=== PATIENT | female | born 1975 | race Caucasian/White ===

== ENCOUNTER 2023-01-15 08:00 | Outpatient (RCR) | payer OTHER, BC, SELFPAY | END 2023-02-01 10:00 | disposition home or self-care (01) | LOC: PT 08:00 | PROVIDERS: PCP Family Medicine; Visit Provider Family Medicine | DX: R42 Dizziness and giddiness (principal) | CPT/HCPCS: 97012; 97140 ==

== ENCOUNTER 2023-05-15 19:41 | Outpatient (REF) | payer OTHER, BC, SELFPAY ==
[2023-05-22 17:07] LABS: Age Gdln ACOG Testing Note (.); HPV Aptima Negative (Negative); IGP, Aptima HPV, rfx 16/18,45 Note (.)
== END 2023-05-15 19:42 | disposition home or self-care (01) ==
LOC: LAB 19:41
PROVIDERS: PCP Family Medicine; Visit Provider Physician Assistant
DX: Z12.4 Encounter for screening for malignant neoplasm of cervix (principal)
CPT/HCPCS: 87624; G0145

== ENCOUNTER 2023-06-18 09:37 | Outpatient (OUT) | payer OTHER, BC, SELFPAY ==
--- NOTE | 2023-06-18 09:40 | US_ITS ---
The [address] [address] Patient Name: LYNDON WALL MRN: [id number] date: 1975 Sex: F Assigned Patient Location: [place] Current Patient Location: Accession/Order Number: [id number] Exam Date: 06/18/2023 09:50 Report Date: 06/18/2023 10:48 At the request of: RICHARD SHEN Procedure: US renal bladder EXAM: US renal bladder HISTORY: Urinary Tract Infection N39.0 COMPARISON: None. TECHNIQUE: Ultrasound of the kidneys. FINDINGS: The right kidney measures 12.4 x 4.6 x 5.7 cm and appears normal. The left kidney measures 12.4 x 5.6 x 6.2 cm and contains a echogenic focus, largest measuring up to 0.3 cm. There is no hydronephrosis, bilaterally. The urinary bladder appears normal. US/US renal bladder IMPRESSION: Left nephrolithiasis without hydronephrosis. Electronically authenticated by: MAYCO CHERRY Date: 06/18/2023 10:48
== END 2023-06-18 09:38 | disposition home or self-care (01) ==
LOC: US 09:37
PROVIDERS: PCP Family Medicine; Visit Provider Family Medicine
DX: N39.0 Urinary tract infection, site not specified (principal); N20.0 Calculus of kidney
CPT/HCPCS: 76770

== ENCOUNTER 2023-08-09 12:14 | Outpatient (OUT) | payer OTHER, BC, SELFPAY ==
--- OUTSIDE RECORDS SUMMARY | 2023-08-09 12:19 | XMS_ITS | CCD ---
Author Name Unknown Address [address] [place] [address] Organization [facility] Care Team Providers Care Animal Health Technician Name Role Phone PHYSICIAN, DEFAULT Unavailable Unavailable PHYSICIAN, DEFAULT Unavailable Unavailable MAXIMILIAN GALAN Unavailable Unavailable HOY, RICHARD Unavailable Unavailable HOY RICHARD Unavailable Unavailable MO Unavailable Unavailable BURKET, MAYCO Unavailable Unavailable KARIM, DANG Unavailable Unavailable HOY ., DR RAMOS Admitting Unavailable HOY ., DR RAMOS Attending Unavailable [facility] Primary Care Unavailable HOY ., DR RAMOS Consulting Unavailable [facility] Primary Care Unavailable KARASIK ., DR FRANCIS Admitting Unavailabl e KARASIK ., DR FRANCIS Attending Unavailabl e KARASIK ., DR FRANCIS Consulting Unavailabl e HOY ., DR RAMOS Primary Care Unavailable HOY ., DR RAMOS Admitting Unavailable HOY ., DR RAMOS Attending Unavailable HOY ., DR RAMOS Admitting Unavailable [facility] Primary Care Unavailable HOY ., DR RAMOS Attending Unavailable HOY ., DR RAMOS Consulting Unavailable HOY ., DR RAMOS Admitting Unavailable [facility] Primary Care Unavailable HOY ., DR RAMOS Attending Unavailable NILL, Paramjit R Attending Unavailable HoyRichard Referring Unavailable NILL, Paramjit R Attending Unavailable Allergies Allergy Classification Reported Allergen(s) Allergy Type Date of Onset Reaction(s) Facility (1 source) NKA Drug allergy (disorder) 7 [facility] Repository (1 source) No Known Allergies; Translations: [No Known Allergies] Propensity to adverse reactions (disorder) [facility] Repository (1 source) diazePAM Drug Allergy [facility] Repository (1 source) NSAIDs Drug allergy (disorder) [facility] Repository (1 source) No Known Medication Allergies; Translations: [No Known Medication Allergies] Propensity to adverse reactions (disorder) [facility] Repository Problems Active Problems Problem Classification Problem Date Documented Da te Episodic/Chronic Conditions associated with dizziness or vertigo (4 sources) Dizziness and giddiness; Translations: [DIZZINESS AND GIDDINESS] Onset: 01-09-2023 Episodic Coronary atherosclerosis and other heart disease (2 sources) Unstable angina; Translations: [UNSTABLE ANGINA] Onset: 05-17-2017 Chronic Diabetes mellitus without complication (1 source) Type 2 diabetes mellitus without complications; Translations: [TYPE 2 DIABETES MELLITUS WITHOUT COMPLICATIONS] Onset: 05-17-2017 Chronic Essential hypertension (1 source) Essential (primary) hypertension; Translations: [ESSENTIAL (PRIMARY) HYPERTENSION] Onset: 05-17-2017 Chronic Menopausal disorders (1 source) Menopausal and female climacteric states; Translations: [MENOPAUSAL FE CLIMACTERIC STATES] Onset: 04-03-2022 Chronic Other endocrine disorders (1 source) Polycystic ovarian syndrome; Translations: [POLYCYSTIC OVARIAN SYNDROME] Onset: 05-17-2017 Chronic Unclassified (1 source) Obstructive sleep apnea (adult) (pediatric); Translations: [OBSTRUCTIVE SLEEP APNEA (ADULT) (PEDIATRIC)] Onset: 05-17-2017 Chronic Unclassified (1 source) correction (current) use of oral hypoglycemic drugs; Translations: [FDC (CURRENT) USE OF ORAL HYPOGLYCEMIC DRUGS] Onset: 05-17-2017 Unclassified (2 sources) Unknown / UNK(Unknown) Onset: 05-17-2017 Past or Other Problems Problem Classification Problem Date Documented Date Episodic/Chronic Immunizations and screening for infectious disease (1 source) Encounter for screening for human papillomavirus (HPV); Translations: [ENC SCREENING HUMAN PAPILLOMAVIRUS] Onset: 05-24-2022 Episodic Nonspecific chest pain (1 source) Other chest pain; Translations: [OTHER CHEST PAIN] Onset: 05-17-2017 Episodic Unclassified (5 sources) Abnormal result of other cardiovascular function study; Translations: [Encounter for screening for malignant neoplasm of cervix] Onset: 05-17-2017 Episodic Results Test Name Value Interpretation Reference Range Facility Consultation Noteon 12-26-19 Consultation Note [id number]:127 Normal [facility] Physician Referralon 023 Physician Referral [id number]:127 Normal [facility] PAP ACOG PANEL 2: 30 to 65on 05-30-2022 . . Normal [facility] Comment on above: Result Comment: Performed at: WB Performed By: #### [id number] #### [facility] [address] [address] [address] Williams Rdz Age Gdln ACOG Testing 30-65 Normal [facility] Comment on above: Performed By: #### [id number] #### [facility] [address] [address] [address] Williams Rdz DIAGNOSIS: Comment Normal [facility] Comment on above: Result Comment: NEGATIVE FOR INTRAEPITHE LIAL LESION OR MALIGNANCY. Performed at: WB Performed By: #### [id number] #### [facility] [address] [address] [address] Williams Rdz HPV Aptima Negative Normal Negative [facility] Comment on above: Result Comment: This nucleic acid amplif ication test detects fourteen high-risk HPV types (16,18,31,33,35,39,45,51,52,56,58,59,66,68) without differentiation. Performed at: =G Performed By: #### [id number] #### [facility] [address] [address] [address] Williams Rdz Methodology: Comment Normal [facility] Comment on above: Result Comment: This liquid based ThinPr ep(R) pap test was screened with the use of an image guided system. Performed at: WB Performed By: #### [id number] #### [facility] [address] [address] [address] Williams Rdz Note: Comment Normal [facility] Comment on above: Result Comment: The Pap smear is a scree kyle test designed to aid in the detection of premalignant and malignant conditions of the uterine cervix. It is not a diagnostic procedure and should not be used as the sole means of detecting cervical cancer. Both false-positive and false-negative reports do occur. . Performed at: WB Performed By: #### [id number] #### [facility] [address] [place] [address] Dr. Williams Rdz Performed by: Comment Normal [facility] Comment on above: Result Comment: Heather Michael Cytotechn ologist (ASCP) Performed at: WB Performed By: #### [id number] #### [facility] [address] [place] [address] Dr. Williams Rdz Specimen adequacy: Comment Normal [facility] Comment on above: Result Comment: Satisfactory for evaluat ion. Endocervical and/or squamous metaplastic cells (endocervical component) are present. Performed at: WB Performed By: #### [id number] #### [facility] [address] [place] [address] Dr. Williams Rdz ESTROGENon 04-06-2022 Estrogens, Total 109 pg/mL Normal [facility] Comment on above: Result Comment: Prepubertal < 40 Female Cycle: 1-10 Days 16 - 328 11-20 Days 34 - 501 21-30 Days 48 - 350 Post-Menopausal 40 - 244 Performed By: #### E STROG #### [facility] [address] [place] [address] Dr. Williams Rdz VITAMIN B1 (THIAMINE)on 03-13 Vit. B1, Whole Blood 143.1 nmol/L Normal 66.5-200.0 [facility] Comment on above: Performed By: #### VITB1T #### [facility] [address] [place] [address] Dr. Williams Rdz FSHon 04-03-2022 FSH 36.0 mIU/mL Normal [facility] Comment on above: Result Comment: Adult Female: Follicular phase 3.5 - 12.5 Ovulation phase 4.7 - 21.5 Luteal phase 1.7 - 7.7 Postmenopausal 25.8 - 134.8 Performed By: #### V ITB1T #### [facility] [address] [place] [address] Dr. Williams Rdz INSULINon 04-02-2022 Insulin 9.9 uIU/mL Normal 2.6-24.9 [facility] Comment on above: Performed By: #### VITB1T #### [facility] [address] [place] [address] Dr. Williams Rdz OCC BLD IMMUNO SCREENon 03-13 OCCULT BLOOD Negative Normal NEGATIVE [facility] Comment on above: Performed By: #### OBSCRN #### [facility] [address] [place] [address] Dr. Williams Rdz PROGESTERONEon 04-01-2022 Progesterone 0.1 ng/mL Normal [facility] Comment on above: Result Comment: Follicular phase 0.1 - 0 .9 Luteal phase 1.8 - 23.9 Ovulation phase 0.1 - 12.0 First trimester 11.0 - 44.3 Second trimester 25.4 - 83.3 Third trimester 58.7 - 214.0 Postmenopausal 0.0 - 0.1 Performed By: #### V ITB1T #### [facility] [address] [place] [address] Dr. Williams Rdz PROLACTINon 04-01-2022 Prolactin 9.4 ng/mL Normal 4.8-23.3 [facility] Comment on above: Performed By: #### PROLAC #### [facility] [address] [place] [address] Dr. Williams Rdz T4, T3U, FTI LABCORPon 04-01 Free Thyroxine Index 2.3 Normal 1.2-4.9 [facility] Comment on above: Performed By: #### VITB1T #### [facility] [address] [place] [address] Dr. Williams Rdz T3 Uptake 26 % Normal 24-39 [facility] Comment on above: Performed By: #### VITB1T #### [facility] [address] [place] [address] Dr. Williams Rdz T4 [Mass/Vol] 8.8 ug/dL Normal 4.5-12.0 [facility] Comment on above: Performed By: #### VITB1T #### [facility] [address] [place] [address] Dr. Williams Rdz TESTOSTERONE, TOTALon 2021 Testosterone [Mass/Vol] 17 ng/dL Normal 4-50 [facility] Comment on above: Performed By: #### TESTTOT #### [facility] [address] [place] [address] Dr. Williams Rdz VIT D 25-OH LABCORPon 2021 Vitamin D, 25-Hydroxy 29.6 ng/mL Critically low 30.0-100.0 [facility] Comment on above: Result Comment: Vitamin D deficiency has been defined by the [place] of [employer] and an Endocrine Society practice guideline as a level of serum 25-OH vitamin D less than 20 ng/mL (1,2). The Endocrine Society went on to further define vitamin D insufficiency as a level between 21 and 29 ng/mL (2). 1. IOM ([place] of [employer]). 2010. Dietary reference intakes for calcium and D. [place]: The National Academies Press. 2. Guido MF, Lashaun [place], Anali GARDINER, et al. Evaluation, treatment, and prevention of vitamin D deficiency: an Endocrine Society clinical practice guideline. JCEM. 2010; 96(7):1911-30. Performed By: #### V ITB1T #### [facility] [address] [place] [address] Dr. Williams Rdz CBC AUTO DIFFon 03-31-2022 BASO # 0.0 103/ul Normal 0.0-0.1 [facility] Comment on above: Performed By: #### VITB1T #### [facility] [address] [place] [address] Dr. Williams Rdz Basophils/100 WBC (Bld) 0.3 % Normal 0.2-2.0 [facility] Comment on above: Performed By: #### VITB1T #### [facility] [address] [place] [address] Dr. Williams Rdz EO # 0.1 103/ul Normal 0.0-0.7 [facility] Comment on above: Performed By: #### VITB1T #### [facility] [address] [place] [address] Dr. Williams Rdz Eosinophils/100 WBC (Bld) 0.6 % Critically low 0.9-7.0 [facility] Comment on above: Performed By: #### VITB1T #### [facility] [address] [place] [address] Dr. Williams Rdz Erythrocyte distribution width (RBC) [Ratio] 14.4 % Normal 11.0-15.0 [facility] Comment on above: Performed By: #### VITB1T #### [facility] [address] [place] [address] Dr. Williams Rdz Hematocrit (Bld) [Volume fraction] 36.2 % Normal 36.0-48.0 [facility] Comment on above: Performed By: #### VITB1T #### [facility] [address] [place] [address] Dr. Williams Rdz Hemoglobin (Bld) [Mass/Vol] 11.1 g/dL Critically low 12.0-16.0 [facility] Comment on above: Performed By: #### VITB1T #### [facility] [address] [place] [address] Dr. Williams Rdz IG # 0.03 10e3/ul Normal 0.00-0.03 [facility] Comment on above: Performed By: #### VITB1T #### [facility] [address] [place] [address] Dr. Williams Rdz IG % 0.3 % Normal 0.0-0.5 [facility] Comment on above: Performed By: #### VITB1T #### [facility] [address] [place] [address] Dr. Williams Rdz LYMPH # 2.5 103/ul Normal 1.2-3.8 [facility] Comment on above: Performed By: #### VITB1T #### [facility] [address] [place] [address] Dr. Williams Rdz Lymphocytes/100 WBC (Bld) 26.4 % Normal 20.5-60.0 [facility] Comment on above: Performed By: #### VITB1T #### [facility] [address] [place] [address] Dr. Williams Rdz MANUAL DIFF REQ NO Normal [facility] Comment on above: Performed By: #### VITB1T #### [facility] [address] [place] [address] Dr. Williams Rdz MCH (RBC) [Entitic mass] 23.8 pg Critically low 26.7-34.0 [facility] Comment on above: Performed By: #### VITB1T #### [facility] [address] [place] [address] Dr. Williams Rdz MCHC (RBC) [Mass/Vol] 30.7 g/dL Normal 29.9-35.2 [facility] Comment on above: Performed By: #### VITB1T #### [facility] [address] [place] [address] Dr. Williams Rdz MCV (RBC) [Entitic vol] 77.7 fL Critically low 81.0-99.0 [facility] Comment on above: Performed By: #### VITB1T #### [facility] [address] [place] [address] Dr. Williams Rdz MONO # 0.6 103/ul Normal 0.3-0.8 [facility] Comment on above: Performed By: #### VITB1T #### [facility] [address] [place] [address] Dr. Williams Rdz Monocytes/100 WBC (Bld) 6.7 % Normal 1.7-12.0 [facility] Comment on above: Performed By: #### VITB1T #### [facility] [address] [place] [address] Dr. Williams Rdz NEUT # 6.2 103/ul Normal 1.4-6.5 [facility] Comment on above: Performed By: #### VITB1T #### [facility] [address] [place] [address] Dr. Williams Rdz Neutrophils/100 WBC (Bld) 65.7 % Normal 43.0-75.0 [facility] Comment on above: Performed By: #### VITB1T #### [facility] [address] [place] [address] Dr. Williams Rdz Platelet mean volume (Bld) [Entitic vol] 8.6 fL Critically low 9.5-13.5 [facility] Comment on above: Performed By: #### VITB1T #### [facility] [address] [place] [address] Dr. Williams Rdz PLT 407 103/ul Normal 150-450 [facility] Comment on above: Performed By: #### VITB1T #### [facility] [address] [place] [address] Dr. Williams Rdz RBC 4.66 106/ul Normal 4.20-5.40 [facility] Comment on above: Performed By: #### VITB1T #### [facility] [address] [place] [address] Dr. Williams Rdz WBC 9.4 103/ul Normal 4.0-11.0 [facility] Comment on above: Performed By: #### VITB1T #### [facility] [address] [place] [address] Dr. Williams Rdz GLYCOHEMOGLOBIN A1Con 2021 ADA RECOMMENDATION SEE BELOW Normal [facility] Comment on above: Result Comment: ADA RECOMMENDED LIMIT 4. 0 - 6.0 ADA THERAPEUTIC TARGET < 7.0 ACTION SUGGESTED > 7.0 Performed By: #### A 1C #### [facility] [address] [place] [address] Dr. Williams Rdz Glucose [Mass/Vol] 111 mg/dL Normal [facility] Comment on above: Performed By: #### A1C #### [facility] [address] [place] [address] Dr. Williams Rdz HbA1c (Bld) [Mass fraction] 5.5 % Normal 4.5-6.2 [facility] Comment on above: Performed By: #### A1C #### [facility] [address] [place] [address] Dr. Williams Rdz IRONon 03-31-2022 Iron [Mass/Vol] 43.0 ug/dL Critically low 50.0-170.0 [facility] Comment on above: Performed By: #### VITB1T #### [facility] [address] [place] [address] Dr. Williams Rdz LIPID PROFILEon 03-31-2022 CHOL-HDL RATIO NORM SEE BELOW Normal [facility] Comment on above: Result Comment: 3.3 - 4.4 LOW RISK 4.4 - 7.1 AVERAGE RISK 7.1 - 11.0 MODERATE RISK >11.0 HIGH RISK Performed By: #### T SH, CMP, LIPID #### [facility] [address] [address] [address] Williams Rdz Cholesterol [Mass/Vol] 142 mg/dL Normal <=200 [facility] Comment on above: Performed By: #### TSH, CMP, LIPID #### [facility] [address] [address] [address] Williams Rdz Cholesterol in HDL [Mass/Vol] 46 mg/dL Normal 40-60 [facility] Comment on above: Performed By: #### TSH, CMP, LIPID #### [facility] [address] [address] [address] Williams Rdz Cholesterol in LDL [Mass/Vol] 78.4 mg/dL Normal [facility] Comment on above: Performed By: #### TSH, CMP, LIPID #### [facility] [address] [address] [address] Williams Rdz Cholesterol.tota l/Cholesterol in HDL [Mass ratio] 3.1 {ratio} Normal [facility] Comment on above: Performed By: #### TSH, CMP, LIPID #### [facility] [address] [address] [address] Williams Rdz HDL NORMAL > or = 60 mg/dl - LO W CARDIOVASCULAR RISK <40 mg/dl - HIGH CARDIOVASCULAR RISK Normal [facility] Comment on above: Performed By: #### TSH, CMP, LIPID #### [facility] [address] [address] [address] Williams Rdz LDL CALC NORMAL SEE BELOW Normal [facility] Comment on above: Result Comment: <100 mg/dl OPTIMAL 100 - 129 mg/dl NEAR OR ABOVE OPTIMAL 130 - 159 mg/dl BORDERLINE HIGH 160 - 189 mg/dl HIGH >190 mg/dl VERY HIGH Performed By: #### T SH, CMP, LIPID #### [facility] [address] [address] [address] Williams Rdz Triglyceride [Mass/Vol] 88 mg/dL Normal <=150 [facility] Comment on above: Performed By: #### TSH, CMP, LIPID #### [facility] [address] [address] [address] Williams Rdz VLDL CALC 17.6 mg/dL Normal [facility] Comment on above: Performed By: #### TSH, CMP, LIPID #### [facility] [address] [address] [address] Williams Rdz PROF 14(COMP METB)on 022 Albumin [Mass/Vol] 3.8 g/dL Normal 3.4-5.0 [facility] Comment on above: Performed By: #### TSH, CMP, LIPID #### [facility] [address] [place] [address] Dr. Williams Rdz Albumin/Globulin [Mass ratio] 0.9 {ratio} Normal [facility] Comment on above: Performed By: #### TSH, CMP, LIPID #### [facility] [address] [address] [address] Williams Rdz ALP [Catalytic activity/Vol] 123 U/L Critically high 46-116 [facility] Comment on above: Performed By: #### TSH, CMP, LIPID #### [facility] [address] [place] [address] Dr. Williams Rdz ALT [Catalytic activity/Vol] 26 U/L Normal 14-59 [facility] Comment on above: Performed By: #### TSH, CMP, LIPID #### [facility] [address] [address] [address] Williams Rdz Anion gap [Moles/Vol] 9.1 mmol/L Normal [facility] Comment on above: Performed By: #### TSH, CMP, LIPID #### [facility] [address] [place] [address] Dr. Williams Rdz AST [Catalytic activity/Vol] 14 U/L Critically low 15-37 [facility] Comment on above: Performed By: #### TSH, CMP, LIPID #### [facility] [address] [address] [address] Williams Rdz Bilirubin [Mass/Vol] 0.5 mg/dL Normal 0.2-1.0 [facility] Comment on above: Performed By: #### TSH, CMP, LIPID #### [facility] [address] [address] [address] Williams Rdz Calcium [Mass/Vol] 8.9 mg/dL Normal 8.5-10.1 [facility] Comment on above: Performed By: #### TSH, CMP, LIPID #### [facility] [address] [address] [address] Williams Rdz Chloride [Moles/Vol] 103 mmol/L Normal 98-107 [facility] Comment on above: Performed By: #### TSH, CMP, LIPID #### [facility] [address] [place] [address] Dr. Williams Rdz CO2 [Moles/Vol] 32.3 mmol/L Critically high 21.0-32.0 [facility] Comment on above: Performed By: #### TSH, CMP, LIPID #### [facility] [address] [address] [address] Williams Rdz Creatinine [Mass/Vol] 0.71 mg/dL Normal 0.55-1.02 [facility] Comment on above: Performed By: #### TSH, CMP, LIPID #### [facility] [address] [place] [address] Dr. Williams Rdz EGFR-AF TRINIDADIAN >60 Normal >=60 [facility] Comment on above: Performed By: #### TSH, CMP, LIPID #### [facility] [address] [place] [address] Dr. Williams Rdz EGFR-NON AF TRINIDADIAN >60 Normal >=60 [facility] Comment on above: Performed By: #### TSH, CMP, LIPID #### [facility] [address] [place] [address] Dr. Williams Rdz Globulin (S) [Mass/Vol] 4.0 g/dL Normal [facility] Comment on above: Performed By: #### TSH, CMP, LIPID #### [facility] [address] [address] [address] Williams Rdz Glucose [Mass/Vol] 105 mg/dL Normal 74-106 [facility] Comment on above: Performed By: #### TSH, CMP, LIPID #### [facility] [address] [address] [address] Williams Rdz Potassium [Moles/Vol] 3.4 mmol/L Critically low 3.5-5.1 [facility] Comment on above: Performed By: #### TSH, CMP, LIPID #### [facility] [address] [address] [address] Williams Rdz Protein [Mass/Vol] 7.8 g/dL Normal 6.4-8.2 [facility] Comment on above: Performed By: #### TSH, CMP, LIPID #### [facility] [address] [place] [address] Dr. Williams Rdz Sodium [Moles/Vol] 141 mmol/L Normal 136-145 [facility] Comment on above: Performed By: #### TSH, CMP, LIPID #### [facility] [address] [address] [address] Williams Rdz Urea nitrogen [Mass/Vol] 19.0 mg/dL Critically high 7.0-18.0 [facility] Comment on above: Performed By: #### TSH, CMP, LIPID #### [facility] [address] [address] [address] Williams Rdz Urea nitrogen/Creatin ine [Mass ratio] 26.8 mg/mg Normal [facility] Comment on above: Performed By: #### TSH, CMP, LIPID #### [facility] [address] [address] [address] Williams Rdz TSHon 03-31-2022 TSH 2.384 uIU/mL Normal 0.358-3.74 0 [facility] [facility] Comment on above: Performed By: #### TSH, CMP, LIPID #### [facility] [address] [address] [address] Williams Rdz VIT B12 AND FOLATEon 022 Cobalamin (Vitamin B12) [Mass/Vol] 856.0 pg/mL Normal 193.0-986. 0 [facility] Comment on above: Performed By: #### VITB1T #### [facility] [address] [place], [place] [address] Dr. Williams Rdz FOLATE 14.50 ng/mL Normal 8.60-58.90 [facility] Comment on above: Performed By: #### VITB1T #### [facility] [address] [place], [place] [address] Dr. Williams Rdz Discharge Summaryon 05-22-20 17 Discharge Summary [id number] Admitted: 05/17/2017 Discharged: 05/21/2017 Date of : 1975 Physician: Dang Borjas DO DISCHARGE SUMMARYPRIMARY DIAGNOSIS: Chest pain (ruled out coronary artery disease).SECONDARY DIAGNOSES:1. Hypertension.2. Obstructive sleep apnea.3. Diabetes mellitus.4. Polycystic ovarian syndrome.CONSULTATIONS: None.PROCEDURE: Coronary angiogram showed normal coronaries.HISTORY OF PRESENT ILLNESS AND HOSPITAL COURSE:The patient as mentioned above is a 41-year-old female, she is known caseof hypertension and diabetes mellitus. Nonsmoker. The patient complainedof recurrent attack of chest pain over 3 weeks' duration. The pain wascentrally located, heavy in nature, radiated to her left shoulder and leftarm. The pain occurs both at rest and on exertion. Outside hospitalinvestigations were done showed ejection fraction of 55% without regionalwall motion abnormalities. Stress test was done outside the hospital andshowed reversible ischemia in the distribution of LAD. The patient wasreferred for further management. Initial EKG and serial EKGs with serialtroponin sets were negative. CTA was done outside and showed no PE.Coronary angiogram was done during her stay in the hospital showed normalcoronaries. Her chest pain is most likely musculoskeletal pain. She wasprescribed nonsteroidal anti-inflammatory drug for her pain. The patientwas discharged home on May 21 with stable condition and no more chestpain.DISCHARGE DISPOSITION: Home.DISCHARGE CONDITION: Stable vital signs. No more chest pain.DISCHARGE MEDICATIONS: Glimepiride 4 mg two times per day, hydralazine 100mg twice a day, irbesartan 300 mg daily, lansoprazole 30 mg capsule daily,metformin 500 mg twice a day, metoprolol 50 mg twice a day, ibuprofen 400mg three times per day as needed for chest pain, and sennosides-docusatesodium 1 tablet oral two times per day as needed for constipation, anddesvenlafaxine succinate ER 50 mg daily.FOLLOWUP INSTRUCTIONS:1. To follow up with her primary care physician within 2 weeks.2. To follow up with Dr. Perez on June 04, 2017, at 09:45 a.m. at [facility].Reviewed By:Margy Davis MD 05/26/2017 01:03 PElectronically Signed by:Dang Borjas DO 05/28/2017 04:44 P ____Dang Borjas DO I personally saw this patient on the day of the encounter, performed thekey portion(s) of the service and participated in the management andconfirm the resident's documentation. Please note there may be anadditional personal documentation from me. Date Dict: 05/21/2017/05:25 P/BRADLEY Carterate Trans: 05/22/2017 02:16 P/mmoDN_[id number]: Richard Alvarado M.D. [address] [facility] [address] Normal [facility] BASIC METABOLIC PANELon 10-1 0 Calcium 8.8 mg/dL Normal 8.6-10.3 [facility] Comment on above: Order Comment: No: Do not add to previou s draw Performed By: #### 3 5200, 63088, 89525, 43313 ####[facility] [place] [address], [facility] Chloride 102 mmol/L Normal 98-107 [facility] Comment on above: Order Comment: No: Do not add to previou s draw Performed By: #### 3 5200, 28050, 97431, 71487 ####[facility] [place] [address], [facility] CO2 26 mmol/L Normal 21-31 [facility] Comment on above: Order Comment: No: Do not add to previou s draw Performed By: #### 3 5200, 71314, 83226, 65838 ####[facility] [place] [address], [facility] Creatinine 0.67 mg/dL Normal 0.60-1.20 [facility] Comment on above: Order Comment: No: Do not add to previou s draw Performed By: #### 3 5200, 18984, 75213, 15840 ####[facility] [place] [address], [facility] eGFR (black) mL/min/{1.73_m2} Normal >60 [facility] Comment on above: Order Comment: No: Do not add to previou s draw Performed By: #### 3 5200, 12493, 91966, 87678 ####[facility] [place] [address], [facility] eGFR (non-black) mL/min/{1.73_m2} Normal >60 Th e [facility] Comment on above: Order Comment: No: Do not add to previou s draw Performed By: #### 3 5200, 28793, 84278, 85935 ####[facility] [place] [address], [place] Glucose mass conc 235 mg/dL High 70-100 [facility] Comment on above: Order Comment: No: Do not add to previou s draw Performed By: #### 3 5200, 91528, 80903, 86576 ####[facility] [place] [address], [place] Potassium molar conc 4.2 mmol/L Normal 3.5-5.1 [facility] Comment on above: Order Comment: No: Do not add to previou s draw Performed By: #### 3 5200, 28101, 68778, 31264 ####[facility] Sodium 137 mmol/L Normal 136-145 [facility] Comment on above: Order Comment: No: Do not add to previou s draw Performed By: #### 3 5200, 00207, 92193, 71178 ####[facility] Urea nitrogen 18 mg/dL Normal 7-25 [facility] Comment on above: Order Comment: No: Do not add to previou s draw Performed By: #### 3 5200, 18807, 24638, 49176 ####[facility] CBC COMPLETE BLOOD COUNTon - Erythrocyte distribution width Auto Ratio (RBC) 14.0 % Normal 11.5-16.9 [facility] Comment on above: Order Comment: No: Do not add to previou s draw Performed By: #### 3 5200, 36839, 24566, 40219 ####[facility] Erythrocytes (RBC) 4.43 mill/mm3 Normal 3.50-5.50 [facility] Comment on above: Order Comment: No: Do not add to previou s draw Performed By: #### 3 5200, 19294, 31893, 95009 ####[facility] Hematocrit (HCT) 38.1 % Normal 36.0-48.0 [facility] Comment on above: Order Comment: No: Do not add to previou s draw Performed By: #### 3 5200, 02101, 83074, 79024 ####[facility] Hemoglobin mass conc (Bld) 12.4 g/dL Normal 12.0-15.0 [facility] Comment on above: Order Comment: No: Do not add to previou s draw Performed By: #### 3 5200, 37176, 33550, 22546 ####[facility] MCH 27.9 pg Normal 24.0-32.0 [facility] Comment on above: Order Comment: No: Do not add to previou s draw Performed By: #### 3 5200, 05305, 53283, 47894 ####[facility] MCHC mass conc (RBC) 32.5 g/dL Normal 32.0-36.0 [facility] Comment on above: Order Comment: No: Do not add to previou s draw Performed By: #### 3 5200, 67019, 80800, 71143 ####[facility] MCV 86.0 fL Normal 80.0-100.0 [facility] Comment on above: Order Comment: No: Do not add to previou s draw Performed By: #### 3 5200, 52129, 36144, 62875 ####[facility] [facility].[address] PLAT CNT 314 Thou/mm3 Normal 100-400 [facility] Comment on above: Order Comment: No: Do not add to previou s draw Performed By: #### 3 5200, 41824, 70230, 25110 ####[facility] [facility].[address] WBC (Leukocytes) 12.3 Thou/mm3 High 4.0-10.0 [facility] Comment on above: Order Comment: No: Do not add to previou s draw Performed By: #### 3 5200, 35117, 05961, 69048 ####[facility] [place] [address], [facility] Cardiovascular Lab Reporton 05-21-2017 Cardiovascular Lab Report [facility] Patient Name: Lyndon Wall [facility] MR #: [id number] Physician: Mayco Faith,Department of M.D.Medicine Service Date: 05/20/2017Division of Birthdate: 1975Cardiology Room #: 3AB [id number] [place], [place] [address]Synjx Fax Cardiovascular Laboratory ReportFINAL IMPRESSION1. Angiographically nonobstructive coronary arteries.2. Normal global left ventricular systolic function by noninvasive imaging.RECOMMENDATIONS:1. Consider alternative etiologies for the patient's chest pain symptoms, namely pulmonary, musculoskeletal, or GI.2. Aggressive cardiovascular risk modification.3. Further recommendation deferred to the Cardiology Service.PROCEDURES: Bilateral selective coronary angiogram by left radialapproach.METHOD: After risks, benefits, and alternatives were explained, a writteninformed consent was obtained. The patient was prepped and draped in ausual sterile fashion over the left wrist. Using a 1% lidocaine solution,local infiltration anesthesia was achieved. Using a modified Seldingertechnique and a micropuncture access to the left radial artery wasobtained. A 6-[place] Seldinger sheath was inserted without difficulty.Bilateral selective coronary angiogram was performed using a JR 4 and JL 4catheter. After reviewing the images, it was elected to conclude theprocedure. All catheters were removed. The radial sheath was removed withapplication of a pressure bandage per protocol achieving optimalhemostasis. Overall, the patient tolerated the procedure well. There wereno overt complications. She was transferred to the holding area in a stablecondition.HEMODYNAMICS: AO was 108/79. Sedation time was 17 minutes. Totalfluoroscopy was .4mGray and time was 2.59 minutes. Left ventricleventriculography was not performed. Ejection fraction was normal bynoninvasive imaging.CORONARY ARTERIES:1. Left main artery. 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 This bifurcates into the left anterior descending, left circumflex coronary artery and is free of significant stenosis.2. Left anterior descending coronary artery. This is angiographically nonobstuctive. It gives rise to 3small to moderate sized diagonal branches that are free of significantdisease.3. Left circumflex coronary artery. This is angiographically nonobstructive. It gives rise to 3 obtuse marginal branches that are small to moderate size that are free of disease.4. Right coronary artery. This is a dominant vessel given rise to the posterior descending and posterolateral branches. The posterior descending and posterolateral branches show no significant stenosis.INDICATION: This patient is a 41-year-old female, who was admitted withunstable angina. She has a past medical history of diabetes, uncontrolledhypertension. Troponins were negative. EKG did not show any changes. Thepatient had a positive stress chest with anterior defect. 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 05/23/2017 02:56 P Mayco Faith M.D. I was present for the entire procedure. Date Dict: 05/20/2017/11:21 A/Taryn Zhou Trans: 05/21/2017 07:35 A/Thaddeus_[id number]: Richard Alvarado M.D. [address] [facility] [address] Normal [facility] HEMOGLOBIN A1Con 05-21-2017 Glucose mass conc 240 mg/dL High 70-126 [facility] Comment on above: Order Comment: No: Do not add to previou s draw Performed By: #### 3 2240, 24161, 44227, 59850 ####[facility] [place] [address], [facility] Hemoglobin A1c/Hemoglobin.t otal mass fraction (Bld) 10.0 % High 4.0-6.0 [facility] Comment on above: Order Comment: No: Do not add to previou s draw Performed By: #### 3 5200, 45606, 16821, 27625 ####[facility] [place] [address], [facility] POC GLUCOSE LABon 05-21-2017 Glucose mass conc 287 mg/dL High 70-100 [facility] Comment on above: Performed By: #### 21504, 65397, 60140, 39888 ####[facility] [place] [address], [facility] Glucose mass conc 231 mg/dL High 70-100 [facility] Comment on above: Performed By: #### 34318, 70027, 56786, 38547 ####[facility] [place] [address], [facility] TROPONIN-Ion 05-21-2017 Troponin I.cardiac mass conc 0.01 ng/mL Normal 0.00-0.04 [facility] Comment on above: Order Comment: No: Do not add to previou s draw Result Comment: REFE RENCE RANGES: 0.00 - 0.04 ng/ml NORMAL 0.05 - 0.50 ng/ml INDETERMINATE > 0.50 ng/ml CONSISTENT WITH AN M.I. Performed By: #### 3 5200, 96469, 69417, 27605 ####[facility] [place] [address], [facility] BASIC METABOLIC PANELon Calcium 9.0 mg/dL Normal 8.6-10.3 [facility] Comment on above: Order Comment: No: Do not add to previou s draw Performed By: #### 3 5200, 67387, 92192, 52583 ####[facility] [place] [address], [facility] Chloride 101 mmol/L Normal 98-107 [facility] Comment on above: Order Comment: No: Do not add to previou s draw Performed By: #### 3 5200, 80549, 65107, 67997 ####[facility] [place] [address], [facility] CO2 26 mmol/L Normal 21-31 [facility] Comment on above: Order Comment: No: Do not add to previou s draw Performed By: #### 3 5200, 37032, 31736, 06483 ####[facility] [place] [address], [facility] Creatinine 0.72 mg/dL Normal 0.60-1.20 [facility] Comment on above: Order Comment: No: Do not add to previou s draw Performed By: #### 3 5200, 84329, 39419, 84035 ####[facility] eGFR (black) mL/min/{1.73_m2} Normal >60 [facility] Comment on above: Order Comment: No: Do not add to previou s draw Performed By: #### 3 5200, 90721, 98261, 25562 ####[facility] [place] [address], [facility] eGFR (non-black) mL/min/{1.73_m2} Normal >60 Th [facility] Comment on above: Order Comment: No: Do not add to previou s draw Performed By: #### 3 5200, 55685, 01130, 13565 ####[facility] [place] [address], [facility] Glucose mass conc 256 mg/dL High 70-100 [facility] Comment on above: Order Comment: No: Do not add to previou s draw Performed By: #### 3 5200, 96076, 90860, 82055 ####[facility] [place] [address], [facility] Potassium molar conc 4.1 mmol/L Normal 3.5-5.1 [facility] Comment on above: Order Comment: No: Do not add to previou s draw Performed By: #### 3 5200, 59048, 15036, 10788 ####[facility] [facility].[address] Sodium 137 mmol/L Normal 136-145 [facility] Comment on above: Order Comment: No: Do not add to previou s draw Performed By: #### 3 5200, 01536, 28502, 26357 ####[facility], [place] [address] [place] [address] Urea nitrogen 18 mg/dL Normal 7-25 [facility] Comment on above: Order Comment: No: Do not add to previou s draw Performed By: #### 3 5200, 07829, 34451, 69001 ####[facility] [facility].[address] CBC COMPLETE BLOOD COUNTon Erythrocyte distribution width Auto Ratio (RBC) 14.2 % Normal 11.5-16.9 [facility] Comment on above: Order Comment: No: Do not add to previou s draw Performed By: #### 3 5200, 49836, 34221, 90111 ####[facility] [facility], [place] [address] [place] [address] Erythrocytes (RBC) 4.63 mill/mm3 Normal 3.50-5.50 [facility] Comment on above: Order Comment: No: Do not add to previou s draw Performed By: #### 3 5200, 53244, 85187, 74827 ####[facility] [place] [address], [facility] Hematocrit (HCT) 39.3 % Normal 36.0-48.0 [facility] Comment on above: Order Comment: No: Do not add to previou s draw Performed By: #### 3 5200, 07312, 95471, 46367 ####[facility] Hemoglobin mass conc (Bld) 12.9 g/dL Normal 12.0-15.0 [facility] Comment on above: Order Comment: No: Do not add to previou s draw Performed By: #### 3 5200, 00070, 09677, 91131 ####[facility] [facility].[address] MCH 28.0 pg Normal 24.0-32.0 [facility] Comment on above: Order Comment: No: Do not add to previou s draw Performed By: #### 3 5200, 30668, 88969, 06676 ####[facility] [facility].[address] MCHC mass conc (RBC) 32.9 g/dL Normal 32.0-36.0 [facility] Comment on above: Order Comment: No: Do not add to previou s draw Performed By: #### 3 5200, 48275, 67332, 98716 ####[facility]3000 [facility].[address] MCV 85.0 fL Normal 80.0-100.0 [facility] Comment on above: Order Comment: No: Do not add to previou s draw Performed By: #### 3 5200, 98621, 73322, 19056 ####[facility] [facility].[address] PLAT CNT 356 Thou/mm3 Normal 100-400 [facility] Comment on above: Order Comment: No: Do not add to previou s draw Performed By: #### 3 5200, 65280, 44041, 22152 ####[facility] [facility].[address] WBC (Leukocytes) 13.8 Thou/mm3 High 4.0-10.0 [facility] Comment on above: Order Comment: No: Do not add to previou s draw Performed By: #### 3 5200, 61408, 34823, 79150 ####[facility] [place] [address], [facility] POC GLUCOSE LABon 05-20-2017 Glucose mass conc 278 mg/dL High 70-100 [facility] Comment on above: Performed By: #### 98992, 92365, 11113, 60448 ####[facility] [place] [address], [facility] Glucose mass conc 412 mg/dL High 70-100 [facility] Comment on above: Performed By: #### 44383, 89110, 14690, 00319 ####[facility] [place] [address], [facility] Glucose mass conc 258 mg/dL High 70-100 [facility] Comment on above: Performed By: #### 23087, 42056, 96800, 79826 ####[facility] [place] [address], [facility] Glucose mass conc 227 mg/dL High 70-100 [facility] Comment on above: Performed By: #### 55128, 25352, 34989, 84476 ####[facility] [place] [address], [facility] TROPONIN-Ion 05-20-2017 Troponin I.cardiac mass conc 0.01 ng/mL Normal 0.00-0.04 [facility] Comment on above: Order Comment: No: Do not add to previou s draw Result Comment: REFE RENCE RANGES: 0.00 - 0.04 ng/ml NORMAL 0.05 - 0.50 ng/ml INDETERMINATE > 0.50 ng/ml CONSISTENT WITH AN M.I. Performed By: #### 3 5200, 13684, 15687, 46174 ####[facility] [place] [address], [facility] BASIC METABOLIC PANELon Calcium 9.0 mg/dL Normal 8.6-10.3 [facility] Comment on above: Order Comment: No: Do not add to previou s draw Performed By: #### 3 5200, 59103, 89020, 79910 ####[facility] [place] [address], [facility] Chloride 104 mmol/L Normal 98-107 [facility] Comment on above: Order Comment: No: Do not add to previou s draw Performed By: #### 3 5200, 27045, 85961, 27081 ####[facility] [place] [address], [facility] CO2 26 mmol/L Normal 21-31 [facility] Comment on above: Order Comment: No: Do not add to previou s draw Performed By: #### 3 5200, 50912, 64234, 79733 ####[facility] [place] [address], [facility] Creatinine 0.76 mg/dL Normal 0.60-1.20 [facility] Comment on above: Order Comment: No: Do not add to previou s draw Performed By: #### 3 5200, 78905, 91945, 94440 ####[facility] eGFR (black) mL/min/{1.73_m2} Normal >60 [facility] Comment on above: Order Comment: No: Do not add to previou s draw Performed By: #### 3 5200, 65770, 62208, 28531 ####[facility] [place] [address], [facility] eGFR (non-black) mL/min/{1.73_m2} Normal >60 Th e [facility] Comment on above: Order Comment: No: Do not add to previou s draw Performed By: #### 3 5200, 80357, 29874, 35777 ####[facility] [place] [address], [facility] Glucose mass conc 246 mg/dL High 70-100 [facility] Comment on above: Order Comment: No: Do not add to previou s draw Performed By: #### 3 5200, 66588, 89874, 14680 ####[facility] [place] [address], [facility] Potassium molar conc 4.4 mmol/L Normal 3.5-5.1 [facility] Comment on above: Order Comment: No: Do not add to previou s draw Performed By: #### 3 5200, 35928, 02119, 05719 ####[facility] [place] [address], [facility] Sodium 138 mmol/L Normal 136-145 [facility] [facility] Comment on above: Order Comment: No: Do not add to previou s draw Performed By: #### 3 5200, 67763, 43668, 73961 ####[facility] [place] [address], [facility] Urea nitrogen 21 mg/dL Normal 7-25 [facility] Comment on above: Order Comment: No: Do not add to previou s draw Performed By: #### 3 5200, 54966, 90534, 56497 ####[facility] [place] [address], [facility] CBC COMPLETE BLOOD COUNTon 1 Erythrocyte distribution width Auto Ratio (RBC) 13.9 % Normal 11.5-16.9 [facility] Comment on above: Order Comment: No: Do not add to previou s draw Performed By: #### 3 5200, 98269, 21183, 80067 ####[facility] [place] [address], [facility] Erythrocytes (RBC) 4.50 mill/mm3 Normal 3.50-5.50 [facility] Comment on above: Order Comment: No: Do not add to previou s draw Performed By: #### 3 5200, 71634, 99308, 89699 ####[facility] Hematocrit (HCT) 38.3 % Normal 36.0-48.0 [facility] Comment on above: Order Comment: No: Do not add to previou s draw Performed By: #### 3 5200, 43805, 59162, 77069 ####[facility] Hemoglobin mass conc (Bld) 12.4 g/dL Normal 12.0-15.0 [facility] Comment on above: Order Comment: No: Do not add to previou s draw Performed By: #### 3 5200, 55666, 24263, 02607 ####[facility] MCH 27.7 pg Normal 24.0-32.0 [facility] Comment on above: Order Comment: No: Do not add to previou s draw Performed By: #### 3 5200, 06440, 71672, 12522 ####[facility] MCHC mass conc (RBC) 32.5 g/dL Normal 32.0-36.0 [facility] Comment on above: Order Comment: No: Do not add to previou s draw Performed By: #### 3 5200, 69700, 24383, 89692 ####[facility]3000 [facility] MCV 85.2 fL Normal 80.0-100.0 [facility] Comment on above: Order Comment: No: Do not add to previou s draw Performed By: #### 3 5200, 99699, 53251, 21082 ####[facility] [place] [address], [facility] PLAT CNT 350 Thou/mm3 Normal 100-400 [facility] Comment on above: Order Comment: No: Do not add to previou s draw Performed By: #### 3 5200, 88826, 63990, 09338 ####[facility] [place] [address], [facility] WBC (Leukocytes) 13.0 Thou/mm3 High 4.0-10.0 [facility] Comment on above: Order Comment: No: Do not add to previou s draw Performed By: #### 3 5200, 14207, 07421, 52151 ####[facility] [place] [address], [facility] MAGNESIUM BLOODon 05-19-2017 Magnesium 2.1 mg/dL Normal 1.9-2.7 [facility] Comment on above: Order Comment: No: Do not add to previou s draw Performed By: #### 3 5200, 59864, 82737, 43759 ####[facility] [place] [address], [facility] POC GLUCOSE LABon 05-19-2017 Glucose mass conc 259 mg/dL High 70-100 [facility] Comment on above: Performed By: #### 79742, 19566, 66771, 96927 ####[facility] [place] [address], [place] Glucose mass conc 289 mg/dL High 70-100 [facility] Comment on above: Performed By: #### 71418, 09874, 76547, 29785 ####[facility] [place] [address], [place] Glucose mass conc 261 mg/dL High 70-100 [facility] Comment on above: Performed By: #### 51300, 02314, 13221, 68626 ####[facility] [place] [address], [place] Glucose mass conc 233 mg/dL High 70-100 [facility] Comment on above: Performed By: #### 96499, 52332, 59035, 93763 ####[facility]3000 [facility].[address] TROPONIN-Ion 05-19-2017 Troponin I.cardiac mass conc 0.00 ng/mL Normal 0.00-0.04 [facility] Comment on above: Order Comment: No: Do not add to previou s draw Result Comment: REFE RENCE RANGES: 0.00 - 0.14 ng/ml NEGATIVE 0.15 - 0.25 ng/ml INDETERMINATE > 0.25 ng/ml INDICATIVE OF AN M.I. Performed By: #### 3 5200, 38145, 98284, 93790 ####[facility] *URINE CULTUREon 05-18-2017 *URINE CULTURE Clinical Report: (C) Specimen/Source: URINE/MIDSTREAM Collected: 05/18/2017 01:00 Status: Final Last Updated: 05/20/2017 10:07 (1) No: Do not add to previous draw ISO (Final) +Upon reincubation: +>100,000 Cfu/Ml +Uro-Genital Cristy Result changed by RADHA on 05/20/2017 10:07. The previous result was: ISO (Final) 100,000 Cfu/Ml Normal [facility] Comment on above: Order Comment: No: Do not add to previou s draw Performed By: #### 5 0608 ####[facility] APTTon 05-18-2017 aPTT 23.5 s Low 25.0-35.0 [facility] Comment on above: Order Comment: No: Do not add to previou s draw Result Comment: ALL RESULTS MUST BE INTERPRETED WITH RESPECT TO BLOOD DRAWING ARTIFACTOR DILUTION ERROR OF ANTICOAGULANT AT THE TIME OF SAMPLING.THE APTT SHOULD NOT BE USED TO MONITOR UNFRACTIONATED HEPARIN THERAPY, THIS LABORATORY NO LONGER HAS AN ESTABLISHED THERAPEUTIC RANGE BASEDON THE APTT. IT IS RECOMMENDED THAT THE [facility]FH - HEPARIN ASSAY (ANTI-XAACTIVITY) BE USED FOR THIS PURPOSE. Performed By: #### 5 7307, 89680 ####[facility] BASIC METABOLIC PANELon 10-0 -2016 Calcium 8.6 mg/dL Normal 8.6-10.3 [facility] Comment on above: Order Comment: No: Do not add to previou s draw Performed By: #### 5 0608 ####[facility] [place] [address], [facility] Chloride 103 mmol/L Normal 98-107 [facility] Comment on above: Order Comment: No: Do not add to previou s draw Performed By: #### 5 0608 ####[place] [address] CO2 25 mmol/L Normal 21-31 [facility] Comment on above: Order Comment: No: Do not add to previou s draw Performed By: #### 5 0608 ####[facility] Creatinine 0.64 mg/dL Normal 0.60-1.20 [facility] Comment on above: Order Comment: No: Do not add to previou s draw Performed By: #### 5 0608 ####[facility] eGFR (black) mL/min/{1.73_m2} Normal >60 [facility] Comment on above: Order Comment: No: Do not add to previou s draw Performed By: #### 5 0608 ####[facility] eGFR (non-black) mL/min/{1.73_m2} Normal >60 Th e [facility] Comment on above: Order Comment: No: Do not add to previou s draw Performed By: #### 5 0608 ####[facility] [place] [address], [facility] Glucose mass conc 185 mg/dL High 70-100 [facility] Comment on above: Order Comment: No: Do not add to previou s draw Performed By: #### 5 0608 ####[facility] [place] [address], [facility] Potassium molar conc 3.5 mmol/L Normal 3.5-5.1 [facility] Comment on above: Order Comment: No: Do not add to previou s draw Performed By: #### 5 0608 ####[facility] [place] [address], [facility] Sodium 141 mmol/L Normal 136-145 [facility] Comment on above: Order Comment: No: Do not add to previou s draw Performed By: #### 5 0608 ####[facility] [place] [address], [facility] Urea nitrogen 24 mg/dL Normal 7-25 [facility] Comment on above: Order Comment: No: Do not add to previou s draw Performed By: #### 5 0608 ####[facility] [place] [address], [facility] CBC COMPLETE BLOOD COUNTon 1 Erythrocyte distribution width Auto Ratio (RBC) 14.1 % Normal 11.5-16.9 [facility] Comment on above: Order Comment: No: Do not add to previou s draw Performed By: #### 5 0608 ####[facility] [place] [address], [facility] Erythrocytes (RBC) 4.46 mill/mm3 Normal 3.50-5.50 [facility] Comment on above: Order Comment: No: Do not add to previou s draw Performed By: #### 5 0608 ####[facility] Hematocrit (HCT) 38.2 % Normal 36.0-48.0 [facility] Comment on above: Order Comment: No: Do not add to previou s draw Performed By: #### 5 0608 ####[facility] Hemoglobin mass conc (Bld) 12.4 g/dL Normal 12.0-15.0 [facility] Comment on above: Order Comment: No: Do not add to previou s draw Performed By: #### 5 0608 ####[facility]3000 [facility].[address] MCH 27.9 pg Normal 24.0-32.0 [facility] Comment on above: Order Comment: No: Do not add to previou s draw Performed By: #### 5 0608 ####[facility] MCHC mass conc (RBC) 32.5 g/dL Normal 32.0-36.0 [facility] Comment on above: Order Comment: No: Do not add to previou s draw Performed By: #### 5 0608 ####[facility]3000 [facility].[address] MCV 85.8 fL Normal 80.0-100.0 [facility] Comment on above: Order Comment: No: Do not add to previou s draw Performed By: #### 5 0608 ####[facility] [place] [address], [facility] PLAT CNT 386 Thou/mm3 Normal 100-400 [facility] Comment on above: Order Comment: No: Do not add to previou s draw Performed By: #### 5 0608 ####[facility] WBC (Leukocytes) 13.5 Thou/mm3 High 4.0-10.0 [facility] Comment on above: Order Comment: No: Do not add to previou s draw Performed By: #### 5 0608 ####[facility] LIPID PROFILEon 05-18-2017 Cholesterol 116 mg/dL Low 120-200 [facility] Comment on above: Order Comment: No: Do not add to previou s draw Result Comment: CHOL ESTEROL REFERENCE RANGE:20 YEARS AND OLDER CARDIOVASCULAR RISKLess than 200 mg/dl Low Dmpk275 to 239 mg/dl Borderline Tnyz090 mg/dl and greater High Risk Performed By: #### 5 0608 ####[facility]3000 [facility].[address] Cholesterol to HDL Ratio 4.6 {ratio} High .0-4.5 [facility] Comment on above: Order Comment: No: Do not add to previou s draw Performed By: #### 5 0608 ####[facility]3000 [facility].[address] HDL Cholesterol 25 mg/dL Normal 23-92 [facility] Comment on above: Order Comment: No: Do not add to previou s draw Result Comment: Slig ht variation in normal range could be due to gender and/or age.HDL CHOLESTEROL REFERENCE RANGE:20 years and older Cardiovascular Risk> or =60 mg/dL [id number] TO 59 mg/dL Low Risk<40 mg/dL High Risk Performed By: #### 5 0608 ####[facility] [facility], [place] [address] [place] [address] LDL Cholesterol 40 mg/dL Normal 0-130 [facility] Comment on above: Order Comment: No: Do not add to previou s draw Result Comment: LDL IS A CALCULATIONLDL IS ONLY VALID IF THE TRIG IS LESS THAN 400. Performed By: #### 5 0608 ####[facility] NON-HDL CHOLESTEROL 91 mg/dL Normal [facility] Comment on above: Order Comment: No: Do not add to previou s draw Performed By: #### 5 0608 ####[facility] Triglyceride 255 mg/dL High 40-149 [facility] Comment on above: Order Comment: No: Do not add to previou s draw Result Comment: TRIG LYCERIDE REFERENCE RANGE:20 YEARS AND OLDER CARDIOVASCULAR RISKLESS THAN 150 mg/dl LOW [id number] TO 199 mg/dl BORDERLINE TFBT075 mg/dl AND GREATER HIGH RISK Performed By: #### 5 0608 ####[facility] VLDL CHOL 51 mg/dL High 0-40 [facility] Comment on above: Order Comment: No: Do not add to previou s draw Performed By: #### 5 0608 ####[facility] MAGNESIUM BLOODon 05-18-2017 Magnesium 1.9 mg/dL Normal 1.9-2.7 [facility] Comment on above: Order Comment: No: Do not add to previou s draw Performed By: #### 5 0608 ####[facility]3000 [facility].[address] METANEPHRINES URINE [id number] n 05-18-2017 ARUP TIME Random Normal [facility] Comment on above: Order Comment: No: Do not add to previou s draw Creatinine 84 mg/dL Normal [facility] Comment on above: Order Comment: No: Do not add to previou s draw Creatinine Not Applicable Normal 700-1600 [facility] Comment on above: Order Comment: No: Do not add to previou s draw Result Comment: Perf ormed by [employer],[address] [facility]ly [facility], [facility], [facility] [place] [address] umu.[employer], Matthew Ortega MD - Lab. Director METANEPHRINE INTERPRETATION See Note Normal [facility] Comment on above: Order Comment: No: Do not add to previou s draw Result Comment: TEST INFORMATION: Metanephrines Fractionated, UrineThe optimal specimen for this testing is a 24-hour urinecollection. Per-day calculations are not reported forpatients younger than 7 years of age and for the followingspecimen types: a random collection, a collection withduration of less than 20 hours, a collection with durationof greater than 28 hours, or a collection with total volumeless than 400 mL (if 18 years of age or older) or greaterthan 5000 mL (all ages). Ratios to creatinine may be usefulfor these evaluations.Smaller increases in metanephrine and/or normetanephrineconcentrations (less than two times the upper referencelimit) usually are the result of physiological stimuli,drugs, or improper specimen collection. Essentialhypertension is often associated with slight elevations(metanephrine less than 400 ug/d and normetanephrine lessthan 900 ug/d). Elevated concentrations may be due tointense physical activity, life-threatening illness, anddrug interferences.Significant elevation of one or both metanephrines (threeor more times the upper reference limit) is associated withan increased probability of a neuroendocrine tumor.Access complete set of age- and/or gender-specificreference intervals for this test in the [employer] [facility] Directory ([employer]).See Compliance statement B: [email or web address] METANEPHRINE PER VOLUME 86 ug/L Normal [facility] Comment on above: Order Comment: No: Do not add to previou s draw METANEPHRINE UT Not Applicable Normal 39-143 [facility] Comment on above: Order Comment: No: Do not add to previou s draw METANEPHRINE/GENERAL FOUNDRY WORKER RATIO 102 ug/g GENERAL FOUNDRY WORKER Normal 0-300 [facility] Comment on above: Order Comment: No: Do not add to previou s draw NORMETANEPHRINE PER VOLUME 404 ug/L Normal [facility] Comment on above: Order Comment: No: Do not add to previou s draw NORMETANEPHRINE UT Not Applicable Normal 109-393 [facility] Comment on above: Order Comment: No: Do not add to previou s draw NORMETANEPHRINE/ GENERAL FOUNDRY WORKER RATIO 481 ug/g GENERAL FOUNDRY WORKER High 0-400 [facility] Comment on above: Order Comment: No: Do not add to previou s draw VOLUME ml Random Normal [facility] Comment on above: Order Comment: No: Do not add to previou s draw POC GLUCOSE LABon 05-18-2017 Glucose mass conc 238 mg/dL High 70-100 [facility] Comment on above: Performed By: #### 60223, 49236, 23045, 92801 ####[facility] [place] [address], [facility] Glucose mass conc 225 mg/dL High 70-100 [facility] Comment on above: Performed By: #### 52524 ####[facility] Glucose mass conc 202 mg/dL High 70-100 [facility] Comment on above: Performed By: #### 59750 ####[facility] PORTABLE CHEST 1 VIEWon PORTABLE CHEST 1 VIEW [facility] HospitalDepartment of Thzumhis[address] [place] [address] ========Patient Name: LYNDON WALL : 1975Sex: FAge: Race: NAMRN: [id number]. Location: [id number] Status: IVisit #: [id number] Date: 05/17/2017 11:00:00 PMCompleted Date: 05/17/2017 11:19 PMRequesting Provider: ADRIANA OWEN Attending Provider: MAXIMILIAN GALAN Report Copy To: Signs & Symptoms: Chest PainHistory: Patient history not availableComments: R/O CHFExam: PORTABLE CHEST 1 VIEWAccession #: [id number] PORTABLE CHEST 1 VIEW 05/17/2017 11:19 PM EDT SIGNS AND SYMPTOMS: Chest Pain TECHNOLOGIST COMMENTS: midline chest pain, patient states transferred here for a heart cath QUESTION FOR THE RADIOLOGIST: R/O CHF PROTOCOL: AP(PA) view was obtained. COMPARISON: None. FINDINGS: The trachea is midline. The cardiac silhouette appears enlarged. The mediastinal contours and pulmonary vascular markings appear within normal limits. There is no focal opacification, pleural effusion or pneumothorax. IMPRESSION: Cardiomegaly without evidence for acute cardiopulmonary process. Approved by:Anita Garcia on 05/18/2017 12:08 AM EDT. I, Jay Fulton, have reviewed the images and report and concur with these findings. Electronically signed by:Jay Fulton. Transcribed by: [email or web address], User Resident: ANITA GARCIAElectronically Signed by: JAY FULTON @ 05/18/2017 08:27 AMI personally read this/these film(s) with this resident Normal [facility] Comment on above: Order Comment: No: Do not add to previou s draw PROTHROMBIN TIMEon 7 INR Coag RelTime (PPP) 1.04 {INR} Normal 0.91-1.16 [facility] Comment on above: Order Comment: No: Do not add to previou s draw Result Comment: ACCC P RECOMMENDED INR FOR WARFARIN THERAPY CONDITION INRPROPHYLAXIS OF VENOUS THROMBOSIS 2-3(HIGH-RISK SURGERY)TREATMENT OF VENOUS THROMBOSIS 2-3TREATMENT OF PULMONARY EMBOLISM 2-3PREVENTION OF SYSTEMIC EMBOLISM: 2-3 ACUTE MYOCARDIAL INFARCTION TISSUE HEART VALVES VALVULAR HEART DISEASE ATRIAL FIBRILLATION RECURRENT SYSTEMIC EMBOLISMMECHANICAL HEART VALVE 2.5-3.5 FROM: ORAL ANTICOAGULANTS. MECHANISM OF ACTION, CLINICALEFFECTIVENESS, AND OPTIMAL THERAPEUTIC RANGE. [id number]. Performed By: #### 5 7307, 74477 ####[facility]3000 [facility].[address] Prothrombin time (PT) Coag time (PPP) 13.6 s Normal 12.3-14.8 [facility] Comment on above: Order Comment: No: Do not add to previou s draw Result Comment: ALL RESULTS MUST BE INTERPRETED WITH RESPECT TO BLOOD DRAWING ARTIFACTOR DILUTION ERROR OF ANTICOAGULANT AT THE TIME OF SAMPLING. Performed By: #### 5 7307, 79734 ####[facility]3000 [facility].[address] TROPONIN-Ion 05-18-2017 Troponin I.cardiac mass conc 0.00 ng/mL Normal 0.00-0.04 [facility] Comment on above: Order Comment: No: Do not add to previou s draw Result Comment: REFE RENCE RANGES: 0.00 - 0.14 ng/ml NEGATIVE 0.15 - 0.25 ng/ml INDETERMINATE > 0.25 ng/ml INDICATIVE OF AN M.I. Performed By: #### 5 0608 ####[facility] [facility] [place] [address], [facility] TSHon 05-18-2017 Thyroid stimulating hormone (TSH) 3.56 MICRO-IU/ML Normal 0.34-5.60 [facility] Comment on above: Performed By: #### 61255 ####[facility] [place] [address], [facility] UA,MICROSCOPIC REQUIREDon Bilirubin (total) Negative Normal NEGATIVE [facility] Comment on above: Order Comment: No: Do not add to previou s draw Performed By: #### 9 0150 ####[facility] [place] [address], [facility] BLOOD Negative Normal NEGATIVE [facility] Comment on above: Order Comment: No: Do not add to previou s draw Performed By: #### 9 0150 ####[facility] [place] [address], [facility] EPIS MANY Abnormal FEW [facility] Comment on above: Order Comment: No: Do not add to previou s draw Performed By: #### 9 0150 ####[facility] [place] [address], [facility] Erythrocytes (RBC) 0-2 Abnormal 0-0 [facility] Comment on above: Order Comment: No: Do not add to previou s draw Performed By: #### 9 0150 ####[facility] [place] [address], [facility] Glucose mass conc 50 mg/dL Abnormal NEGATIVE [facility] Comment on above: Order Comment: No: Do not add to previou s draw Performed By: #### 9 0150 ####[facility] [place] [address], [facility] KETONE Negative Normal NEGATIVE [facility] Comment on above: Order Comment: No: Do not add to previou s draw Performed By: #### 9 0150 ####[facility] [place] [address], [place] LEUK RASHMI Negative Normal NEGATIVE [facility] Comment on above: Order Comment: No: Do not add to previou s draw Performed By: #### 9 0150 ####[facility] [place] [address], [facility] MUCUS THREADS OCC Abnormal NONE SEEN [facility] Comment on above: Order Comment: No: Do not add to previou s draw Performed By: #### 9 0150 ####[facility] [place] [address], [facility] pH of blood 5.0 [pH] Normal 5.0-8.0 The [facility] Comment on above: Order Comment: No: Do not add to previou s draw Performed By: #### 9 0150 ####[facility] [place] [address], [facility] Protein Negative Normal NEGATIVE The [facility] Comment on above: Order Comment: No: Do not add to previou s draw Performed By: #### 9 0150 ####[facility] [place] [address], [place] SPEC GRAV 1.020 Normal 1.015-1.02 0 [facility] Comment on above: Order Comment: No: Do not add to previou s draw Performed By: #### 9 0150 ####[facility] [place] [address], [facility] Urine, appearance SL CLOUDY Abnormal CLEAR [facility] Comment on above: Order Comment: No: Do not add to previou s draw Performed By: #### 9 0150 ####[facility] [place] [address], [place] Urine, bacteria in sediment OCC Abnormal NONE SEEN The [facility] Comment on above: Order Comment: No: Do not add to previou s draw Performed By: #### 9 0150 ####[facility] [place] [address], [place] Urine, color YELLOW Normal YELLOW The [facility] Comment on above: Order Comment: No: Do not add to previou s draw Performed By: #### 9 0150 ####[facility] [facility] [place] [address], [facility] Urine, nitrite presence Negative Normal NEGATIVE The [facility] Comment on above: Order Comment: No: Do not add to previou s draw Performed By: #### 9 0150 ####[facility] [place] [address], [facility] WBC UA 3-5 Abnormal 0-0 [facility] Comment on above: Order Comment: No: Do not add to previou s draw Performed By: #### 9 0150 ####[facility] [facility] [place] [address], [facility] BASIC METABOLIC PANELon 10-0 Calcium 9.0 mg/dL Normal 8.6-10.3 [facility] Comment on above: Order Comment: No: Do not add to previou s draw Performed By: #### 3 5200, 28029, 20892, 08037 ####[facility] [facility] [place] [address], [facility] Chloride 105 mmol/L Normal 98-107 The [facility] Comment on above: Order Comment: No: Do not add to previou s draw Performed By: #### 3 5200, 29291, 65649, 67689 ####[facility] [place] [address], [facility] CO2 23 mmol/L Normal 21-31 [facility] Comment on above: Order Comment: No: Do not add to previou s draw Performed By: #### 3 5200, 26539, 63328, 07515 ####[facility] [place] [address], [facility] Creatinine 0.74 mg/dL Normal 0.60-1.20 [facility] Comment on above: Order Comment: No: Do not add to previou s draw Performed By: #### 3 5200, 20253, 00182, 26925 ####[facility] [place] [address], [facility] eGFR (black) mL/min/{1.73_m2} Normal >60 The [facility] Comment on above: Order Comment: No: Do not add to previou s draw Performed By: #### 3 5200, 85888, 15499, 42109 ####[facility] [place] [address], [facility] eGFR (non-black) mL/min/{1.73_m2} Normal >60 Th e [facility] Comment on above: Order Comment: No: Do not add to previou s draw Performed By: #### 3 5200, 87897, 21104, 82516 ####[facility] [place] [address], [facility] Glucose mass conc 218 mg/dL High 70-100 [facility] Comment on above: Order Comment: No: Do not add to previou s draw Performed By: #### 3 5200, 84357, 06434, 74449 ####[facility] [place] [address], [facility] Potassium molar conc 3.5 mmol/L Normal 3.5-5.1 [facility] Comment on above: Order Comment: No: Do not add to previou s draw Performed By: #### 3 5200, 33309, 05749, 22304 ####[facility] [place] [address], [facility] Sodium 138 mmol/L Normal 136-145 [facility] Comment on above: Order Comment: No: Do not add to previou s draw Performed By: #### 3 5200, 79271, 19487, 08285 ####[facility] Urea nitrogen 29 mg/dL High 7-25 [facility] Comment on above: Order Comment: No: Do not add to previou s draw Performed By: #### 3 5200, 72371, 70477, 96965 ####[facility] CBC COMPLETE BLOOD COUNTon Erythrocyte distribution width Auto Ratio (RBC) 14.5 % Normal 11.5-16.9 [facility] Comment on above: Order Comment: No: Do not add to previou s draw Performed By: #### 5 0608 ####[facility] Erythrocytes (RBC) 4.54 mill/mm3 Normal 3.50-5.50 [facility] Comment on above: Order Comment: No: Do not add to previou s draw Performed By: #### 5 0608 ####[facility] Hematocrit (HCT) 39.3 % Normal 36.0-48.0 [facility] Comment on above: Order Comment: No: Do not add to previou s draw Performed By: #### 5 0608 ####[facility] Hemoglobin mass conc (Bld) 12.6 g/dL Normal 12.0-15.0 [facility] Comment on above: Order Comment: No: Do not add to previou s draw Performed By: #### 5 0608 ####[facility] [place] [address], [facility] MCH 27.8 pg Normal 24.0-32.0 [facility] Comment on above: Order Comment: No: Do not add to previou s draw Performed By: #### 5 0608 ####[facility] MCHC mass conc (RBC) 32.1 g/dL Normal 32.0-36.0 [facility] Comment on above: Order Comment: No: Do not add to previou s draw Performed By: #### 5 0608 ####[facility] MCV 86.7 fL Normal 80.0-100.0 [facility] Comment on above: Order Comment: No: Do not add to previou s draw Performed By: #### 5 0608 ####[facility] PLAT CNT 419 Thou/mm3 High 100-400 [facility] Comment on above: Order Comment: No: Do not add to previou s draw Performed By: #### 5 0608 ####[facility] WBC (Leukocytes) 17.8 Thou/mm3 High 4.0-10.0 [facility] Comment on above: Order Comment: No: Do not add to previou s draw Performed By: #### 5 0608 ####[facility] CPK-MB PROFILEon 05-17-2017 CKMB 1.5 ng/mL Normal 0.0-5.0 [facility] Comment on above: Result Comment: IF TOTAL CK <200 U/L AND : 1. CKMB IS 5-10 NG/ML----BORDERLINE 2. CKMB IS >10 NG/ML----INDICATIVE OF [place] OR IF TOTAL CK >200 U/L AND CKMB INDEX >1.9----INDICATIVE [place] Performed By: #### 3 5200, 10760, 57380, 76315 ####[facility] CKMB 10.0 ng/mL Critically high 0.0-1.9 [facility] Comment on above: Performed By: #### 83056, 59795, 39366, 13772 ####[facility] Creatine kinase (CK) 15 U/L Low 30-223 [facility] Comment on above: Performed By: #### 42284, 52603, 56248, 03742 ####[facility] MAGNESIUM BLOODon 05-17-2017 Magnesium 2.0 mg/dL Normal 1.9-2.7 [facility] Comment on above: Order Comment: No: Do not add to previou s draw Performed By: #### 3 5200, 92105, 79541, 25190 ####[facility] [facility].[address] POC GLUCOSE LABon 05-17-2017 Glucose mass conc 214 mg/dL High 70-100 [facility] Comment on above: Performed By: #### 21558 ####[facility] [facility].[address] TROPONIN-Ion 05-17-2017 Troponin I.cardiac mass conc 0.01 ng/mL Normal 0.00-0.04 [facility] Comment on above: Order Comment: No: Do not add to previou s draw Result Comment: REFE RENCE RANGES: 0.00 - 0.04 ng/ml NORMAL 0.05 - 0.50 ng/ml INDETERMINATE > 0.50 ng/ml CONSISTENT WITH AN M.I. Performed By: #### 3 5200, 34195, 87779, 98785 ####[facility] [facility].[address] Encounters Encounter Date Encounter Type Care Provider Facility Start: 06-18-2023 ambulatory Paramjit SMITH Facility:[facility] Start: 01-09-[address] RICHARD ALVARADO . Facili ty:[facility] Start: 05-24-2023 ambulatory Paramjit SMITH Facility :[facility] Start: 12-25-2022 ambulatory Paramjit SMITH Facility :[facility] Start: 12-24-2022 ambulatory Paramjit SMITH Facility:[facility] Start: 05-23-2022 End: 05-23-2022 ambulatory GASTON ARELLANO Facility: Start: 04-07-[address] RICHARD ALVARADO . Facili ty:[facility] Start: 04-03-2022 Encounter for genera l adult medical examination without abnormal findings DR RICHARD ALVARADO . [facility] Start: 04-02-2022 End: 04-02-[address] RICHARD ALVARADO . Facility:[facility] Start: 04-02-2022 End: 04-02-2022 Encounter for general adult medical examination without abnormal findings DR RICHARD ALVARADO . Facility:[facility] Start: 03-31-2022 End: 04-01-[address] RICHARD ALVARADO . Facility: Start: 05-17-2017 End: 05-21-2017 Ambulatory MAXIMILIAN GALAN [facility] Start: 04-17-2017 End: 04-18-2017 Ambulatory DEFAULT PHYSICIAN [facility] Procedures Date Procedure Procedure Detail Performing Clinician Start: 05-20-2017 FLUOROSCOPY OF MULTI PLE CORONARY ARTERIES USING OTH CONTRAST MAYCO FAITH Payers Date Payer Category Payer Unknown [id number] 1975 Unknown [id number] 2.16.84 [id number] 1975 Unknown [id number] 2.16.84 [id number] 1973 Unknown [id number] 2.16.84 [id number] 1973 Unknown [id number] 2.16.84 [id number] 1973 Unknown [id number] 2.16.84 [id number] 1973 Unknown [id number] 2.16.8 [id number] 1959 Self-pay 1961 Unknown [id number] 1961 Unknown [id number] 1959 Unknown [id number] Unknown Summary Purpose Family History No Family History Records FoundNo Family History Records FoundNo Family History Records Found Advance Directives No Advanced Directives Records FoundNo Advanced Directives Records FoundNo Advanced Directives Records Found Additional Source Comments INFORMATION SOURCE (unrecogn ized section and content) DATE CREATED AUTHOR 02/07/2018 [facility] DATE CREATED AUTHOR AUTHOR'S ORGANIZ ATION 01/18/[address] [facility] DATE CREATED AUTHOR AUTHOR'S ORGANIZ ATION 06/19/2023 [facility] FOR RECORDS PERTAINING TO PATIENTS WHO ARE OR HAVE BEEN ENROLLED IN A CHEMICAL DEPENDENCY/SUBSTANCEABUSE PROGRAM, SOME INFORMATION MAY BE OMITTED. This clinical summary was aggregated from multiple sources. Caution should be exercised in using it in the provision of clinical care. This summary normalizes information from multiple sources, and as a consequence, information in this document may materially change the coding, format and clinical context of patient data. In addition, data may be omitted in some cases. CLINICAL DECISIONS SHOULD BE BASED ON THE PRIMARY CLINICAL RECORDS. [facility]. provides no warranty or guarantee of the accuracy or completeness of information in this document.
--- NOTE | 2023-08-09 12:21 | US_ITS ---
The [place] [id number] Patient Name: LYNDON WALL MRN: [id number] date: 1975 Sex: F Assigned Patient Location: [facility] Current Patient Location: [facility] Accession/Order Number: [id number] Exam Date: 08/09/2023 12:23 Report Date: 08/09/2023 12:56 At the request of: RICHARD SHEN Procedure: US venous doppler LE RT EXAMINATION: US venous doppler LE RT HISTORY: Edema, R60.9 ; right thigh and calf pain COMPARISON: No relevant comparison available. FINDINGS: REGION: Right lower extremity THROMBI: None. COMPRESSIBILITY: Normal compressibility. FLOW: Normal waveform and antegrade flow between 5 and 20 cm/s. OTHER: None. US/US venous doppler LE RT IMPRESSION: 1. No deep vein thrombus within the right lower extremity. Electronically authenticated by: ALINA VICTORIA Date: 08/09/2023 12:56
== END 2023-08-09 12:15 | disposition home or self-care (01) ==
LOC: RAD 12:16
PROVIDERS: PCP Family Medicine; Visit Provider Family Medicine
DX: R60.9 Edema, unspecified (principal)
CPT/HCPCS: 93971

== ENCOUNTER 2024-10-06 10:40 | Outpatient (OUT) | payer BC, SELFPAY ==
--- OUTSIDE RECORDS SUMMARY | 2024-10-06 11:07 | XMS_ITS | CCD ---
Author Organization [facility] Care Team Providers Care Weapons Officer Name Role Phone PHYSICIAN, DEFAULT Unavailable Unavailable PHYSICIAN, DEFAULT Unavailable Unavailable MAXIMILIAN GAALN Unavailable Unavailable HOY, RICHARD Unavailable Unavailable HOFLOYD PaulinoLAS Unavailable Unavailable OR Unavailable Unavailable BURKET, MAYCO Unavailable Unavailable KARIM, DANG Unavailable Unavailable HOY ., DR RAMOS Admitting Unavailable HOY ., DR RAMOS Attending Unavailable LAARELI, GASTON Primary Care Unavailable HOY ., DR RAMOS Consulting Unavailable LALOR, GASTON Primary Care Unavailable KARASIK ., DR FRANCIS Admitting Unavailabl e KARASIK ., DR FRANCIS Attending Unavailabl e KARASIK ., DR FRANCIS Consulting Unavailabl e HOY ., DR RAMOS Primary Care Unavailable HOY ., DR RAMOS Admitting Unavailable HOY ., DR RAMOS Attending Unavailable HOY ., DR RAMOS Admitting Unavailable LALOR, AGSTON Primary Care Unavailable HOY ., DR RAMOS Attending Unavailable HOY ., DR RAMOS Consulting Unavailable HOY ., DR RAMOS Admitting Unavailable LALOR, PETER Primary Care Unavailable HOY ., DR RAMOS Attending Unavailable Paramjit SMITH Attending Unavailable Jenny Richard Referring Unavailable Floyd Alvaradolas Primary Care Physician Allergies Allergy Classification Reported Allergen(s) Allergy Type Date of Onset Reaction(s) Facility (1 source) NKA Drug allergy (disorder) 7 [facility] Repository (1 source) No Known Allergies; Translations: [No Known Allergies] Propensity to adverse reactions (disorder) [facility] Repository (1 source) diazePAM Drug Allergy [facility] (1 source) NSAIDs Drug allergy (disorder) [facility] (1 source) No Known Medication Allergies; Translations: [No Known Medication Allergies] Propensity to adverse reactions (disorder) [facility] Rep[facility] Medications Current Medications Medication Drug Class(es) Dates Sig (Normalized) Sig (Original) estrogens, conjugated (shelter) 0.625 mg/ml vaginal cream (1 source) Estrogen Start: 07-01-2024 Premarin Vaginal 0.625 mg/g cream with applicator 1 gram, Vaginal, qPM, Refill(s) 0 Start Date: 07/01/24 Status: Ordered Problems Active Problems Problem Classification Problem Date Documented Da te Episodic/Chronic Conditions associated with dizziness or vertigo (4 sources) Dizziness and giddiness; Translations: [DIZZINESS AND GIDDINESS] Onset: 01-09-2023 Episodic Coronary atherosclerosis and other heart disease (2 sources) Unstable angina; Translations: [UNSTABLE ANGINA] Onset: 05-17-2017 Chronic Diabetes mellitus without complication (2 sources) Type 2 diabetes mellitus without complications; Translations: [Diabetes mellitus] Onset: 05-17-2017 12-26-2022 Chronic Essential hypertension (2 sources) Essential (primary) hypertension; Translations: [Essential hypertension] Onset: 05-17-2017 12-26-2022 Chronic Headache; including migraine (1 source) Tension-type headache 07-01-2024 Chronic Menopausal disorders (1 source) Menopausal and female climacteric states; Translations: [MENOPAUSAL FE CLIMACTERIC STATES] Onset: 04-03-2022 Chronic Nutritional deficiencies (1 source) Vitamin B deficiency 12-26-2022 Episodic Other endocrine disorders (1 source) Polycystic ovarian syndrome; Translations: [POLYCYSTIC OVARIAN SYNDROME] Onset: 05-17-2017 Chronic Other endocrine disorders (1 source) 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 Other endocrine disorders (1 source) Polycystic ovary syndrome 07-01-2024 Chronic Other gastrointestinal disorders (1 source) History of esophagitis 12-26-2022 Episodic Other nutritional; endocrine; and metabolic disorders (1 source) Overweight 07-01-2024 Episodic Other skin disorders (1 source) Trichilemmal cyst 12-26-2022 Episodic Residual codes; unclassified (1 source) Insomnia 12-26-2022 Episodic Unclassified (1 source) Obstructive sleep apnea (adult) (pediatric); Translations: [OBSTRUCTIVE SLEEP APNEA (ADULT) (PEDIATRIC)] Onset: 05-17-2017 Chronic Unclassified (1 source) snf (current) use of oral hypoglycemic drugs; Translations: [SEAFOOD PACKER (CURRENT) USE OF ORAL HYPOGLYCEMIC DRUGS] Onset: [...] Test Name Value Interpretation Reference Range Facility PAP ACOG PANEL 2: 30 to 65on 05-30-2022 . . Normal [facility] Comment on above: Result Comment: Performed at: WB Performed By: #### [id number] #### [facility] [address] [address] [address] Williams Rdz Age Gdln ACOG Testing 30-65 Normal [facility] Comment on above: Performed By: #### [id number] #### [facility] [address] [address] [address] Williams Rdz DIAGNOSIS: Comment Normal [facility] Comment on above: Result Comment: NEGATIVE FOR INTRAEPITHE LIAL LESION OR MALIGNANCY. Performed at: WB Performed By: #### [id number] #### [facility] [address] [address] [address] Williams Rdz HPV Aptima Negative Normal Negative [facility] Comment on above: Result Comment: This nucleic acid amplif ication test detects fourteen high-risk HPV types (16,18,31,33,35,39,45,51,52,56,58,59,66,68) without differentiation. Performed at: =G Performed By: #### [id number] #### [facility] [address] [address] [address] Williams Rdz Methodology: Comment Normal [facility] Comment on above: Result Comment: This liquid based ThinPr ep(R) pap test was screened with the use of an image guided system. Performed at: WB Performed By: #### [id number] #### [facility] [address] [place] [address] Dr. Williams Rdz Note: Comment Normal [facility] Comment on above: Result Comment: The Pap smear is a scree kyle test designed to aid in the detection of premalignant and malignant conditions of the uterine cervix. It is not a diagnostic procedure and should not be used as the sole means of detecting cervical cancer. Both false-positive and false-negative reports do occur. . Performed at: WB Performed By: #### [id number] #### [facility] [address] [place] [address] Dr. Williams Rdz Performed by: Comment Normal [facility] Comment on above: Result Comment: Heather Michael Cytotechn ologist (ASCP) Performed at: WB Performed By: #### [id number] #### [facility] [address] [place] [address] Dr. Williams Rdz Specimen adequacy: Comment Normal [facility] Comment on above: Result Comment: Satisfactory for evaluat ion. Endocervical and/or squamous metaplastic cells (endocervical component) are present. Performed at: WB Performed By: #### [id number] #### [facility] [address] [place] [address] Dr. Williams Rdz ESTROGENon 04-06-2022 Estrogens, Total 109 pg/mL Normal [facility] Comment on above: Result Comment: Prepubertal < 40 Female Cycle: 1-10 Days 16 - 328 11-20 Days 34 - 501 21-30 Days 48 - 350 Post-Menopausal 40 - 244 Performed By: #### E STROG #### [facility] [address] [place] [address] Dr. Williams Rdz VITAMIN B1 (THIAMINE)on 03-13 Vit. B1, Whole Blood 143.1 nmol/L Normal 66.5-200.0 [facility] Comment on above: Performed By: #### VITB1T #### [facility] [address] [place] [address] Dr. Williams Rdz FSHon 04-03-2022 FSH 36.0 mIU/mL Normal [facility] Comment on above: Result Comment: Adult Female: Follicular phase 3.5 - 12.5 Ovulation phase 4.7 - 21.5 Luteal phase 1.7 - 7.7 Postmenopausal 25.8 - 134.8 Performed By: #### V ITB1T #### [facility] [address] [place] [address] Dr. Williams Rdz INSULINon 04-02-2022 Insulin 9.9 uIU/mL Normal 2.6-24.9 [facility] Comment on above: Performed By: #### VITB1T #### [facility] [address] [place] [address] Dr. Williams Rdz OCC BLD IMMUNO SCREENon 03-13 OCCULT BLOOD Negative Normal NEGATIVE [facility] Comment on above: Performed By: #### OBSCRN #### [facility] [address] [place] [address] Dr. Williams Rdz PROGESTERONEon 04-01-2022 Progesterone 0.1 ng/mL Normal [facility] Comment on above: Result Comment: Follicular phase 0.1 - 0 .9 Luteal phase 1.8 - 23.9 Ovulation phase 0.1 - 12.0 First trimester 11.0 - 44.3 Second trimester 25.4 - 83.3 Third trimester 58.7 - 214.0 Postmenopausal 0.0 - 0.1 Performed By: #### V ITB1T #### [facility] [address] [place] [address] Dr. Williams Rdz PROLACTINon 04-01-2022 Prolactin 9.4 ng/mL Normal 4.8-23.3 [facility] Comment on above: Performed By: #### PROLAC #### [facility] [address] [place] [address] Dr. Williams Rdz T4, T3U, FTI LABCORPon 04-01 Free Thyroxine Index 2.3 Normal 1.2-4.9 [facility] Comment on above: Performed By: #### VITB1T #### [facility] [address] [place] [address] Dr. Williams Rdz T3 Uptake 26 % Normal 24-39 [facility] Comment on above: Performed By: #### VITB1T #### [facility] [address] [address] [address] Williams Rdz T4 [Mass/Vol] 8.8 ug/dL Normal 4.5-12.0 [facility] Comment on above: Performed By: #### VITB1T #### [facility] [address] [address] [address] Williams Rdz TESTOSTERONE, TOTALon 2021 Testosterone [Mass/Vol] 17 ng/dL Normal 4-50 [facility] Comment on above: Performed By: #### TESTTOT #### [facility] [address] [place] [address] Dr. Williams Rdz VIT D 25-OH LABCORPon 2021 Vitamin D, 25-Hydroxy 29.6 ng/mL Critically low 30.0-100.0 [facility] Comment on above: Result Comment: Vitamin D deficiency has been defined by the [place] of [employer] and an Endocrine Society practice guideline as a level of serum 25-OH vitamin D less than 20 ng/mL (1,2). The Endocrine Society went on to further define vitamin D insufficiency as a level between 21 and 29 ng/mL (2). 1. IOM ([place] of Medicine). 2010. Dietary reference intakes for calcium and D. [place]: The National Academies Press. 2. Guido MF, Lashaun [place], Anali GARDINER, et al. Evaluation, treatment, and prevention of vitamin D deficiency: an Endocrine Society clinical practice guideline. JCEM. 2010; 96(7):1911-30. Performed By: #### V ITB1T #### [facility] [address] [address] [address] Williams Rdz CBC AUTO DIFFon 03-31-2022 BASO # 0.0 103/ul Normal 0.0-0.1 [facility] Comment on above: Performed By: #### VITB1T #### [facility] [address] [address] [address] Williams Rdz Basophils/100 WBC (Bld) 0.3 % Normal 0.2-2.0 [facility] Comment on above: Performed By: #### VITB1T #### [facility] [address] [place] [address] Dr. Williams Rdz EO # 0.1 103/ul Normal 0.0-0.7 [facility] Comment on above: Performed By: #### VITB1T #### [facility] [address] [place] [address] Dr. Williams Rdz Eosinophils/100 WBC (Bld) 0.6 % Critically low 0.9-7.0 [facility] Comment on above: Performed By: #### VITB1T #### [facility] [address] [place] [address] Dr. Williams Rdz Erythrocyte distribution width (RBC) [Ratio] 14.4 % Normal 11.0-15.0 [facility] Comment on above: Performed By: #### VITB1T #### [facility] [address] [place] [address] Dr. Williams Rdz Hematocrit (Bld) [Volume fraction] 36.2 % Normal 36.0-48.0 [facility] Comment on above: Performed By: #### VITB1T #### [facility] [address] [place] [address] Dr. Williams Rdz Hemoglobin (Bld) [Mass/Vol] 11.1 g/dL Critically low 12.0-16.0 [facility] Comment on above: Performed By: #### VITB1T #### [facility] [address] [place] [address] Dr. Williams Rdz IG # 0.03 10e3/ul Normal 0.00-0.03 [facility] Comment on above: Performed By: #### VITB1T #### [facility] [address] [place] [address] Dr. Williams Rdz IG % 0.3 % Normal 0.0-0.5 [facility] Comment on above: Performed By: #### VITB1T #### [facility] [address] [place] [address] Dr. Williams Rdz LYMPH # 2.5 103/ul Normal 1.2-3.8 [facility] Comment on above: Performed By: #### VITB1T #### [facility] [address] [place] [address] Dr. Williams Rdz Lymphocytes/100 WBC (Bld) 26.4 % Normal 20.5-60.0 [facility] Comment on above: Performed By: #### VITB1T #### [facility] [address] [place] [address] Dr. Williams Rdz MANUAL DIFF REQ NO Normal [facility] Comment on above: Performed By: #### VITB1T #### [facility] [address] [place] [address] Dr. Williams Rdz MCH (RBC) [Entitic mass] 23.8 pg Critically low 26.7-34.0 [facility] Comment on above: Performed By: #### VITB1T #### [facility] [address] [place] [address] Dr. Williams Rdz MCHC (RBC) [Mass/Vol] 30.7 g/dL Normal 29.9-35.2 [facility] Comment on above: Performed By: #### VITB1T #### [facility] [address] [place] [address] Dr. Williams Rdz MCV (RBC) [Entitic vol] 77.7 fL Critically low 81.0-99.0 [facility] Comment on above: Performed By: #### VITB1T #### [facility] [address] [place] [address] Dr. Williams Rdz MONO # 0.6 103/ul Normal 0.3-0.8 [facility] Comment on above: Performed By: #### VITB1T #### [facility] [address] [place] [address] Dr. Williams Rdz Monocytes/100 WBC (Bld) 6.7 % Normal 1.7-12.0 [facility] Comment on above: Performed By: #### VITB1T #### [facility] [address] [place] [address] Dr. Williams Rdz NEUT # 6.2 103/ul Normal 1.4-6.5 [facility] Comment on above: Performed By: #### VITB1T #### [facility] [address] [place] [address] Dr. Williams Rdz Neutrophils/100 WBC (Bld) 65.7 % Normal 43.0-75.0 [facility] Comment on above: Performed By: #### VITB1T #### [facility] [address] [place] [address] Dr. Williams Rdz Platelet mean volume (Bld) [Entitic vol] 8.6 fL Critically low 9.5-13.5 [facility] Comment on above: Performed By: #### VITB1T #### [facility] [address] [place] [address] Dr. Williams Rdz PLT 407 103/ul Normal 150-450 [facility] Comment on above: Performed By: #### VITB1T #### [facility] [address] [place] [address] Dr. Williams Rdz RBC 4.66 106/ul Normal 4.20-5.40 [facility] Comment on above: Performed By: #### VITB1T #### [facility] [address] [place] [address] Dr. Williams Rdz WBC 9.4 103/ul Normal 4.0-11.0 [facility] Comment on above: Performed By: #### VITB1T #### [facility] [address] [place] [address] Dr. Williams Rdz GLYCOHEMOGLOBIN A1Con 2021 ADA RECOMMENDATION SEE BELOW Normal [facility] Comment on above: Result Comment: ADA RECOMMENDED LIMIT 4. 0 - 6.0 ADA THERAPEUTIC TARGET < 7.0 ACTION SUGGESTED > 7.0 Performed By: #### A 1C #### [facility] [address] [place] [address] Dr. Williams Rdz Glucose [Mass/Vol] 111 mg/dL Normal [facility] Comment on above: Performed By: #### A1C #### [facility] [address] [place] [address] Dr. Williams Rdz HbA1c (Bld) [Mass fraction] 5.5 % Normal 4.5-6.2 [facility] Comment on above: Performed By: #### A1C #### [facility] [address] [address] [address] Williams Rdz IRONon 03-31-2022 Iron [Mass/Vol] 43.0 ug/dL Critically low 50.0-170.0 [facility] Comment on above: Performed By: #### VITB1T #### [facility] [address] [address] [address] Williams Rdz LIPID PROFILEon 03-31-2022 CHOL-HDL RATIO NORM SEE BELOW Normal [facility] Comment on above: Result Comment: 3.3 - 4.4 LOW RISK 4.4 - 7.1 AVERAGE RISK 7.1 - 11.0 MODERATE RISK >11.0 HIGH RISK Performed By: #### T SH, CMP, LIPID #### [facility] [address] [address] [address] Williams Rdz Cholesterol [Mass/Vol] 142 mg/dL Normal <=200 [facility] Comment on above: Performed By: #### TSH, CMP, LIPID #### [facility] [address] [place] [address] Dr. Williams Rdz Cholesterol in HDL [Mass/Vol] 46 mg/dL Normal 40-60 [facility] Comment on above: Performed By: #### TSH, CMP, LIPID #### [facility] [address] [address] [address] Williams Rdz Cholesterol in LDL [Mass/Vol] 78.4 mg/dL Normal [facility] Comment on above: Performed By: #### TSH, CMP, LIPID #### [facility] [address] [address] [address] Williams Rdz Cholesterol.tota l/Cholesterol in HDL [Mass ratio] 3.1 {ratio} Normal [facility] Comment on above: Performed By: #### TSH, CMP, LIPID #### [facility] [address] [address] [address] Williams Rdz HDL NORMAL > or = 60 mg/dl - LO W CARDIOVASCULAR RISK <40 mg/dl - HIGH CARDIOVASCULAR RISK Normal [facility] Comment on above: Performed By: #### TSH, CMP, LIPID #### [facility] [address] [place] [address] Dr. Williams Rdz LDL CALC NORMAL SEE BELOW Normal [facility] Comment on above: Result Comment: <100 mg/dl OPTIMAL 100 - 129 mg/dl NEAR OR ABOVE OPTIMAL 130 - 159 mg/dl BORDERLINE HIGH 160 - 189 mg/dl HIGH >190 mg/dl VERY HIGH Performed By: #### T SH, CMP, LIPID #### [facility] [address] [address] [address] Williams Rdz Triglyceride [Mass/Vol] 88 mg/dL Normal <=150 [facility] Comment on above: Performed By: #### TSH, CMP, LIPID #### [facility] [address] [place] [address] Dr. Williams Rdz VLDL CALC 17.6 mg/dL Normal [facility] Comment on above: Performed By: #### TSH, CMP, LIPID #### [facility] [address] [place] [address] Dr. Williams Rdz PROF 14(COMP METB)on 022 Albumin [Mass/Vol] 3.8 g/dL Normal 3.4-5.0 [facility] Comment on above: Performed By: #### TSH, CMP, LIPID #### [facility] [address] [place] [address] Dr. Williams Rdz Albumin/Globulin [Mass ratio] 0.9 {ratio} Normal [facility] Comment on above: Performed By: #### TSH, CMP, LIPID #### [facility] [address] [place] [address] Dr. Williams Rdz ALP [Catalytic activity/Vol] 123 U/L Critically high 46-116 [facility] Comment on above: Performed By: #### TSH, CMP, LIPID #### [facility] [address] [place] [address] Dr. Williams Rdz ALT [Catalytic activity/Vol] 26 U/L Normal 14-59 [facility] Comment on above: Performed By: #### TSH, CMP, LIPID #### [facility] [address] [address] [address] Williams Rdz Anion gap [Moles/Vol] 9.1 mmol/L Normal [facility] Comment on above: Performed By: #### TSH, CMP, LIPID #### [facility] [address] [address] [address] Williams Rdz AST [Catalytic activity/Vol] 14 U/L Critically low 15-37 [facility] Comment on above: Performed By: #### TSH, CMP, LIPID #### [facility] [address] [address] [address] Williams Rdz Bilirubin [Mass/Vol] 0.5 mg/dL Normal 0.2-1.0 [facility] Comment on above: Performed By: #### TSH, CMP, LIPID #### [facility] [address] [place] [address] Dr. Williams Rdz Calcium [Mass/Vol] 8.9 mg/dL Normal 8.5-10.1 [facility] Comment on above: Performed By: #### TSH, CMP, LIPID #### [facility] [address] [address] [address] Williams Rdz Chloride [Moles/Vol] 103 mmol/L Normal 98-107 [facility] Comment on above: Performed By: #### TSH, CMP, LIPID #### [facility] [address] [address] [address] Williams Rdz CO2 [Moles/Vol] 32.3 mmol/L Critically high 21.0-32.0 [facility] Comment on above: Performed By: #### TSH, CMP, LIPID #### [facility] [address] [address] [address] Williams Rdz Creatinine [Mass/Vol] 0.71 mg/dL Normal 0.55-1.02 [facility] Comment on above: Performed By: #### TSH, CMP, LIPID #### [facility] [address] [address] [address] Williams Rdz EGFR-AF JORDANIAN >60 Normal >=60 [facility] Comment on above: Performed By: #### TSH, CMP, LIPID #### [facility] [address] [address] [address] Williams Rdz EGFR-NON AF JORDANIAN >60 Normal >=60 [facility] Comment on above: Performed By: #### TSH, CMP, LIPID #### [facility] [address] [address] [address] Williams Rdz Globulin (S) [Mass/Vol] 4.0 g/dL Normal [facility] Comment on above: Performed By: #### TSH, CMP, LIPID #### [facility] [address] [address] [address] Williams Rdz Glucose [Mass/Vol] 105 mg/dL Normal 74-106 [facility] Comment on above: Performed By: #### TSH, CMP, LIPID #### [facility] [address] [place] [address] Dr. Williams Rdz Potassium [Moles/Vol] 3.4 mmol/L Critically low 3.5-5.1 [facility] Comment on above: Performed By: #### TSH, CMP, LIPID #### [facility] [address] [place] [address] Dr. Williams Rdz Protein [Mass/Vol] 7.8 g/dL Normal 6.4-8.2 [facility] Comment on above: Performed By: #### TSH, CMP, LIPID #### [facility] [address] [address] [address] Williams Rdz Sodium [Moles/Vol] 141 mmol/L Normal 136-145 [facility] Comment on above: Performed By: #### TSH, CMP, LIPID #### [facility] [facility] [address] [address] [address] Williams Rdz Urea nitrogen [Mass/Vol] 19.0 mg/dL Critically high 7.0-18.0 [facility] Comment on above: Performed By: #### TSH, CMP, LIPID #### [facility] [address] [address] [address] Williams Rdz Urea nitrogen/Creatin ine [Mass ratio] 26.8 mg/mg Normal [facility] Comment on above: Performed By: #### TSH, CMP, LIPID #### [facility] [address] [address] [address] Williams Rdz TSHon 03-31-2022 TSH 2.384 uIU/mL Normal 0.358-3.74 0 [facility] Comment on above: Performed By: #### TSH, CMP, LIPID #### [facility] [address] [address] [address] Williams Rdz VIT B12 AND FOLATEon 022 Cobalamin (Vitamin B12) [Mass/Vol] 856.0 pg/mL Normal 193.0-986. 0 [facility] Comment on above: Performed By: #### VITB1T #### [facility] [address] [address] [address] Williams Rdz FOLATE 14.50 ng/mL Normal 8.60-58.90 [facility] Comment on above: Performed By: #### VITB1T #### [facility] [address] [address] [address] Williams Rdz Discharge Summaryon 05-22-20 17 Discharge Summary MR#: [id number] [facility] Lyndon Wall Admitted: 05/17/2017 Discharged: [...] June 04, 2017, at 09:45 a.m. at [facility].Reviewed By:Margy Davis MD 05/26/2017 01:03 PElectronically Signed by:Dang Borjas DO 05/28/2017 04:44 P ____Dang Borjas DO I personally saw this patient on the day of the encounter, performed thekey portion(s) of the service and participated in the management andconfirm the resident's documentation. Please note there may be anadditional personal documentation from me. Date Dict: 05/21/2017/05:25 P/Taryn Carter Trans: 05/22/2017 02:16 P/bettyoDParish_JN:[id number]: Richard Alvarado M.D. [address] [facility] [address] Normal [facility] BASIC METABOLIC PANELon 10- Calcium 8.8 mg/dL Normal 8.6-10.3 [facility] Comment on above: Order Comment: No: Do not add to previou s draw Performed By: #### 3 5200, 56824, 19007, 26627 ####[facility] [place] [address], [facility] Chloride 102 mmol/L Normal 98-107 [facility] Comment on above: Order Comment: No: Do not add to previou s draw Performed By: #### 3 5200, 70574, 50764, 49526 ####[facility] [place] [address], [facility] CO2 26 mmol/L Normal 21-31 [facility] Comment on above: Order Comment: No: Do not add to previou s draw Performed By: #### 3 5200, 00610, 47620, 12681 ####[facility] [place] [address], [facility] Creatinine 0.67 mg/dL Normal 0.60-1.20 [facility] Comment on above: Order Comment: No: Do not add to previou s draw Performed By: #### 3 5200, 18419, 48697, 75529 ####[facility] [place] [address], [facility] eGFR (black) mL/min/{1.73_m2} Normal >60 [facility] Comment on above: Order Comment: No: Do not add to previou s draw Performed By: #### 3 5200, 80449, 42693, 88740 ####[facility] [place] [address], [facility] eGFR (non-black) mL/min/{1.73_m2} Normal >60 Th e [facility] Comment on above: Order Comment: No: Do not add to previou s draw Performed By: #### 3 5200, 66572, 95554, 23295 ####[facility] [place] [address], [facility] Glucose mass conc 235 mg/dL High 70-100 [facility] Comment on above: Order Comment: No: Do not add to previou s draw Performed By: #### 3 5200, 72870, 45173, 35548 ####[facility] [place] [address], [facility] Potassium molar conc 4.2 mmol/L Normal 3.5-5.1 [facility] Comment on above: Order Comment: No: Do not add to previou s draw Performed By: #### 3 5200, 46452, 26096, 90997 ####[facility] [place] [address], [facility] Sodium 137 mmol/L Normal 136-145 [facility] Comment on above: Order Comment: No: Do not add to previou s draw Performed By: #### 3 5200, 41742, 01922, 35450 ####[facility] [place] [address], [facility] Urea nitrogen 18 mg/dL Normal 7-25 [facility] Comment on above: Order Comment: No: Do not add to previou s draw Performed By: #### 3 5200, 48523, 95691, 33729 ####[facility] [place] [address], [facility] CBC COMPLETE BLOOD COUNTon - Erythrocyte distribution width Auto Ratio (RBC) 14.0 % Normal 11.5-16.9 [facility] Comment on above: Order Comment: No: Do not add to previou s draw Performed By: #### 3 5200, 64836, 12695, 97237 ####[facility] [place] [address], [facility] Erythrocytes (RBC) 4.43 mill/mm3 Normal 3.50-5.50 [facility] Comment on above: Order Comment: No: Do not add to previou s draw Performed By: #### 3 5200, 73354, 81243, 94259 ####[facility] Hematocrit (HCT) 38.1 % Normal 36.0-48.0 [facility] Comment on above: Order Comment: No: Do not add to previou s draw Performed By: #### 3 5200, 44339, 49421, 79868 ####[facility] Hemoglobin mass conc (Bld) 12.4 g/dL Normal 12.0-15.0 [facility] Comment on above: Order Comment: No: Do not add to previou s draw Performed By: #### 3 5200, 29269, 96983, 66018 ####[facility] MCH 27.9 pg Normal 24.0-32.0 [facility] Comment on above: Order Comment: No: Do not add to previou s draw Performed By: #### 3 5200, 54297, 82203, 37992 ####[facility] MCHC mass conc (RBC) 32.5 g/dL Normal 32.0-36.0 [facility] Comment on above: Order Comment: No: Do not add to previou s draw Performed By: #### 3 5200, 15354, 36848, 39144 ####[facility] [place] [address], [facility] MCV 86.0 fL Normal 80.0-100.0 [facility] Comment on above: Order Comment: No: Do not add to previou s draw Performed By: #### 3 5200, 95477, 59684, 36664 ####[facility] PLAT CNT 314 Thou/mm3 Normal 100-400 [facility] Comment on above: Order Comment: No: Do not add to previou s draw Performed By: #### 3 5200, 12550, 18454, 23727 ####[facility] WBC (Leukocytes) 12.3 Thou/mm3 High 4.0-10.0 [facility] Comment on above: Order Comment: No: Do not add to previou s draw Performed By: #### 3 5200, 84348, 91497, 95214 ####[facility] Cardiovascular Lab Reporton 05-21-2017 Cardiovascular Lab Report [facility] Patient Name: Lyndon Wall [facility] MR #: [id number] Physician: Mayco Faith,Department of M.D.Medicine Service Date: 05/20/2017Division of Birthdate: 1975Cardiology Room #: 3AB [id number] [address]Phone Fax Cardiovascular Laboratory ReportFINAL IMPRESSION1. Angiographically nonobstructive [...] to the left radial artery wasobtained. A 6-[place]an Seldinger sheath was inserted without difficulty.Bilateral selective [...] be taken for further evaluation in the mason tender restoration labor.Edited and Electronically Signed by:Mayco Faith M.D. 05/23/2017 02:56 P Mayco Faith M.D. I was present for the entire procedure. Date Dict: 05/20/2017/11:21 A/Taryn Zhou Trans: 05/21/2017 07:35 A/Thaddeus_JN:[id number]: Richard Alvarado M.D. [address], [facility] [address] Normal [facility] HEMOGLOBIN A1Con 05-21-2017 Glucose mass conc 240 mg/dL High 70-126 [facility] Comment on above: Order Comment: No: Do not add to previou s draw Performed By: #### 3 5200, 08274, 75350, 25668 ####[facility] [place] [address], [facility] Hemoglobin A1c/Hemoglobin.t otal mass fraction (Bld) 10.0 % High 4.0-6.0 [facility] Comment on above: Order Comment: No: Do not add to previou s draw Performed By: #### 3 5200, 23490, 24372, 54584 ####[facility] [place] [address], [facility] POC GLUCOSE LABon 05-21-2017 Glucose mass conc 287 mg/dL High 70-100 [facility] Comment on above: Performed By: #### 39409, 50312, 15534, 64376 ####[facility] [place] [address], [facility] Glucose mass conc 231 mg/dL High 70-100 [facility] Comment on above: Performed By: #### 52034, 69798, 32065, 39265 ####[facility] [place] [address], [facility] TROPONIN-Ion 05-21-2017 Troponin I.cardiac mass conc 0.01 ng/mL Normal 0.00-0.04 [facility] Comment on above: Order Comment: No: Do not add to previou s draw Result Comment: REFE RENCE RANGES: 0.00 - 0.04 ng/ml NORMAL 0.05 - 0.50 ng/ml INDETERMINATE > 0.50 ng/ml CONSISTENT WITH AN M.I. Performed By: #### 3 5200, 36037, 82968, 47121 ####[facility] [place] [address], [facility] BASIC METABOLIC PANELon Calcium 9.0 mg/dL Normal 8.6-10.3 [facility] Comment on above: Order Comment: No: Do not add to previou s draw Performed By: #### 3 5200, 64693, 45745, 82861 ####[facility] [place] [address], [facility] Chloride 101 mmol/L Normal 98-107 [facility] Comment on above: Order Comment: No: Do not add to previou s draw Performed By: #### 3 5200, 78502, 07817, 07878 ####[facility] [place] [address], [facility] CO2 26 mmol/L Normal 21-31 [facility] Comment on above: Order Comment: No: Do not add to previou s draw Performed By: #### 3 5200, 53878, 31803, 44073 ####[facility] [place] [address], [facility] Creatinine 0.72 mg/dL Normal 0.60-1.20 [facility] Comment on above: Order Comment: No: Do not add to previou s draw Performed By: #### 3 5200, 83928, 08460, 65908 ####[facility] [place] [address], [facility] eGFR (black) mL/min/{1.73_m2} Normal >60 [facility] Comment on above: Order Comment: No: Do not add to previou s draw Performed By: #### 3 5200, 42011, 06630, 12724 ####[facility] [place] [address], [facility] eGFR (non-black) mL/min/{1.73_m2} Normal >60 Th e [facility] Comment on above: Order Comment: No: Do not add to previou s draw Performed By: #### 3 5200, 78832, 46976, 27505 ####[id number] [place] [address], [facility] Glucose mass conc 256 mg/dL High 70-100 [facility] Comment on above: Order Comment: No: Do not add to previou s draw Performed By: #### 3 5200, 87448, 43647, 36474 ####[facility] [place] [address], [facility] Potassium molar conc 4.1 mmol/L Normal 3.5-5.1 [facility] Comment on above: Order Comment: No: Do not add to previou s draw Performed By: #### 3 5200, 60094, 57307, 60771 ####[facility] [place] [address], [facility] Sodium 137 mmol/L Normal 136-145 [facility] Comment on above: Order Comment: No: Do not add to previou s draw Performed By: #### 3 5200, 66579, 17100, 34268 ####[facility] [place] [address], [facility] Urea nitrogen 18 mg/dL Normal 7-25 [facility] Comment on above: Order Comment: No: Do not add to previou s draw Performed By: #### 3 5200, 40860, 05088, 40810 ####[facility] [place] [address], [facility] CBC COMPLETE BLOOD COUNTon 1 Erythrocyte distribution width Auto Ratio (RBC) 14.2 % Normal 11.5-16.9 [facility] Comment on above: Order Comment: No: Do not add to previou s draw Performed By: #### 3 5200, 03948, 87259, 99240 ####[facility] [place] [address], [facility] Erythrocytes (RBC) 4.63 mill/mm3 Normal 3.50-5.50 [facility] Comment on above: Order Comment: No: Do not add to previou s draw Performed By: #### 3 5200, 98920, 33844, 97720 ####[facility] Hematocrit (HCT) 39.3 % Normal 36.0-48.0 [facility] Comment on above: Order Comment: No: Do not add to previou s draw Performed By: #### 3 5200, 39689, 03730, 52590 ####[facility] Hemoglobin mass conc (Bld) 12.9 g/dL Normal 12.0-15.0 [facility] Comment on above: Order Comment: No: Do not add to previou s draw Performed By: #### 3 5200, 51722, 73091, 65037 ####[facility] MCH 28.0 pg Normal 24.0-32.0 [facility] Comment on above: Order Comment: No: Do not add to previou s draw Performed By: #### 3 5200, 87784, 00042, 17747 ####[facility] MCHC mass conc (RBC) 32.9 g/dL Normal 32.0-36.0 [facility] Comment on above: Order Comment: No: Do not add to previou s draw Performed By: #### 3 5200, 16039, 39854, 37827 ####[facility] MCV 85.0 fL Normal 80.0-100.0 [facility] Comment on above: Order Comment: No: Do not add to previou s draw Performed By: #### 3 5200, 51221, 25785, 43955 ####[facility] [place] [address], [facility] PLAT CNT 356 Thou/mm3 Normal 100-400 [facility] Comment on above: Order Comment: No: Do not add to previou s draw Performed By: #### 3 5200, 66073, 93958, 86267 ####[facility] [place] [address], [facility] WBC (Leukocytes) 13.8 Thou/mm3 High 4.0-10.0 [facility] Comment on above: Order Comment: No: Do not add to previou s draw Performed By: #### 3 5200, 54624, 92722, 39568 ####[facility] [place] [address], [facility] POC GLUCOSE LABon 05-20-2017 Glucose mass conc 278 mg/dL High 70-100 [facility] Comment on above: Performed By: #### 76196, 67776, 84834, 65171 ####[facility] [place] [address], [facility] Glucose mass conc 412 mg/dL High 70-100 [facility] Comment on above: Performed By: #### 39370, 31910, 91943, 01815 ####[facility] [place] [address], [facility] Glucose mass conc 258 mg/dL High 70-100 [facility] Comment on above: Performed By: #### 43843, 87575, 59874, 95446 ####[facility] [place] [address], [facility] Glucose mass conc 227 mg/dL High 70-100 [facility] Comment on above: Performed By: #### 91603, 06289, 15563, 96169 ####[facility] [place] [address], [facility] TROPONIN-Ion 05-20-2017 Troponin I.cardiac mass conc 0.01 ng/mL Normal 0.00-0.04 [facility] Comment on above: Order Comment: No: Do not add to previou s draw Result Comment: REFE RENCE RANGES: 0.00 - 0.04 ng/ml NORMAL 0.05 - 0.50 ng/ml INDETERMINATE > 0.50 ng/ml CONSISTENT WITH AN M.I. Performed By: #### 3 5200, 35986, 41231, 72483 ####[facility] BASIC METABOLIC PANELon 10-0 Calcium 9.0 mg/dL Normal 8.6-10.3 [facility] Comment on above: Order Comment: No: Do not add to previou s draw Performed By: #### 3 5200, 43819, 83582, 15090 ####[facility] Chloride 104 mmol/L Normal 98-107 [facility] Comment on above: Order Comment: No: Do not add to previou s draw Performed By: #### 3 5200, 07692, 46860, 25924 ####[facility] CO2 26 mmol/L Normal 21-31 [facility] Comment on above: Order Comment: No: Do not add to previou s draw Performed By: #### 3 5200, 19929, 59085, 74541 ####[facility] Creatinine 0.76 mg/dL Normal 0.60-1.20 [facility] Comment on above: Order Comment: No: Do not add to previou s draw Performed By: #### 3 5200, 00564, 13842, 27970 ####[facility] [place] [address], [facility] eGFR (black) mL/min/{1.73_m2} Normal >60 [facility] Comment on above: Order Comment: No: Do not add to previou s draw Performed By: #### 3 5200, 30230, 10569, 27658 ####[facility] [place] [address], [facility] eGFR (non-black) mL/min/{1.73_m2} Normal >60 Th e [facility] Comment on above: Order Comment: No: Do not add to previou s draw Performed By: #### 3 5200, 17881, 57132, 11593 ####[facility] [place] [address], [facility] Glucose mass conc 246 mg/dL High 70-100 [facility] Comment on above: Order Comment: No: Do not add to previou s draw Performed By: #### 3 5200, 82901, 57905, 51702 ####[facility] [place] [address], [facility] Potassium molar conc 4.4 mmol/L Normal 3.5-5.1 [facility] Comment on above: Order Comment: No: Do not add to previou s draw Performed By: #### 3 5200, 81134, 18152, 24146 ####[facility] [place] [address], [facility] Sodium 138 mmol/L Normal 136-145 [facility] Comment on above: Order Comment: No: Do not add to previou s draw Performed By: #### 3 5200, 63674, 74276, 73223 ####[facility] [place] [address], [place] Urea nitrogen 21 mg/dL Normal 7-25 [facility] Comment on above: Order Comment: No: Do not add to previou s draw Performed By: #### 3 5200, 42481, 94121, 40405 ####[facility] [place] [address], [place] CBC COMPLETE BLOOD COUNTon 1 Erythrocyte distribution width Auto Ratio (RBC) 13.9 % Normal 11.5-16.9 [facility] Comment on above: Order Comment: No: Do not add to previou s draw Performed By: #### 3 5200, 07115, 54290, 43148 ####[facility] Erythrocytes (RBC) 4.50 mill/mm3 Normal 3.50-5.50 [facility] Comment on above: Order Comment: No: Do not add to previou s draw Performed By: #### 3 5200, 29151, 18589, 68083 ####[facility] Hematocrit (HCT) 38.3 % Normal 36.0-48.0 [facility] Comment on above: Order Comment: No: Do not add to previou s draw Performed By: #### 3 5200, 94826, 43963, 60276 ####[facility] Hemoglobin mass conc (Bld) 12.4 g/dL Normal 12.0-15.0 [facility] Comment on above: Order Comment: No: Do not add to previou s draw Performed By: #### 3 5200, 66825, 01760, 29991 ####[facility] [place] [address], [facility] MCH 27.7 pg Normal 24.0-32.0 [facility] Comment on above: Order Comment: No: Do not add to previou s draw Performed By: #### 3 5200, 76437, 53302, 40044 ####[facility] [place] [address], [facility] MCHC mass conc (RBC) 32.5 g/dL Normal 32.0-36.0 [facility] Comment on above: Order Comment: No: Do not add to previou s draw Performed By: #### 3 5200, 80174, 13587, 03883 ####[facility] [place] [address], [facility] MCV 85.2 fL Normal 80.0-100.0 [facility] Comment on above: Order Comment: No: Do not add to previou s draw Performed By: #### 3 5200, 74410, 87745, 94262 ####[facility] [place] [address], [facility] PLAT CNT 350 Thou/mm3 Normal 100-400 [facility] Comment on above: Order Comment: No: Do not add to previou s draw Performed By: #### 3 5200, 84141, 75858, 10695 ####[facility] [place] [address], [facility] WBC (Leukocytes) 13.0 Thou/mm3 High 4.0-10.0 [facility] Comment on above: Order Comment: No: Do not add to previou s draw Performed By: #### 3 5200, 66940, 97869, 39705 ####[facility] [place] [address], [facility] MAGNESIUM BLOODon 05-19-2017 Magnesium 2.1 mg/dL Normal 1.9-2.7 [facility] Comment on above: Order Comment: No: Do not add to previou s draw Performed By: #### 3 5200, 46450, 36303, 02831 ####[facility] [place] [address], [facility] POC GLUCOSE LABon 05-19-2017 Glucose mass conc 259 mg/dL High 70-100 [facility] Comment on above: Performed By: #### 45363, 99033, 92046, 52641 ####[facility] [place] [address], [facility] Glucose mass conc 289 mg/dL High 70-100 [facility] Comment on above: Performed By: #### 50738, 10106, 73279, 85153 ####[facility] [place] [address], [facility] Glucose mass conc 261 mg/dL High 70-100 [facility] Comment on above: Performed By: #### 19134, 09223, 23823, 60577 ####[facility] [place] [address], [facility] Glucose mass conc 233 mg/dL High 70-100 [facility] Comment on above: Performed By: #### 85763, 02378, 88070, 89421 ####[facility] TROPONIN-Ion 05-19-2017 Troponin I.cardiac mass conc 0.00 ng/mL Normal 0.00-0.04 [facility] Comment on above: Order Comment: No: Do not add to previou s draw Result Comment: REFE RENCE RANGES: 0.00 - 0.14 ng/ml NEGATIVE 0.15 - 0.25 ng/ml INDETERMINATE > 0.25 ng/ml INDICATIVE OF AN M.I. Performed By: #### 3 5200, 46239, 14884, 46630 ####[facility] *URINE CULTUREon 05-18-2017 *URINE CULTURE Clinical Report: (C) Specimen/Source: URINE/MIDSTREAM Collected: 05/18/2017 01:00 Status: Final Last Updated: 05/20/2017 10:07 (1) No: Do not add to previous draw ISO (Final) +Upon reincubation: +>100,000 Cfu/Ml +Uro-Genital Cristy Result changed by RADHA on 05/20/2017 10:07. The previous result was: ISO (Final) 100,000 Cfu/Ml Normal [facility] Comment on above: Order Comment: No: Do not add to previou s draw Performed By: #### 5 0608 ####[facility] APTTon 05-18-2017 aPTT 23.5 s Low 25.0-35.0 [facility] Comment on above: Order Comment: [...] THIS PURPOSE. Performed By: #### 5 7307, 75658 ####[facility] BASIC METABOLIC PANELon Calcium 8.6 mg/dL Normal 8.6-10.3 [facility] Comment on above: Order Comment: No: Do not add to previou s draw Performed By: #### 5 0608 ####[facility] [place] [address], [facility] Chloride 103 mmol/L Normal 98-107 [facility] Comment on above: Order Comment: No: Do not add to previou s draw Performed By: #### 5 0608 ####[facility] [place] [address], [facility] CO2 25 mmol/L Normal 21-31 [facility] Comment on above: Order Comment: No: Do not add to previou s draw Performed By: #### 5 0608 ####[facility] [place] [address], [facility] Creatinine 0.64 mg/dL Normal 0.60-1.20 [facility] Comment on above: Order Comment: No: Do not add to previou s draw Performed By: #### 5 0608 ####[facility] [place] [address], [facility] eGFR (black) mL/min/{1.73_m2} Normal >60 [facility] Comment on above: Order Comment: No: Do not add to previou s draw Performed By: #### 5 0608 ####[facility] [place] [address], [facility] eGFR (non-black) mL/min/{1.73_m2} Normal >60 Th e [facility] Comment on above: Order Comment: No: Do not add to previou s draw Performed By: #### 5 0608 ####[facility] [place] [address], [facility] Glucose mass conc 185 mg/dL High 70-100 [facility] Comment on above: Order Comment: No: Do not add to previou s draw Performed By: #### 5 0608 ####[facility] [place] [address], [facility] Potassium molar conc 3.5 mmol/L Normal 3.5-5.1 [facility] Comment on above: Order Comment: No: Do not add to previou s draw Performed By: #### 5 0608 ####[facility] [place] [address], [facility] Sodium 141 mmol/L Normal 136-145 [facility] Comment on above: Order Comment: No: Do not add to previou s draw Performed By: #### 5 0608 ####[facility] [place] [address], [facility] Urea nitrogen 24 mg/dL Normal 7-25 [facility] Comment on above: Order Comment: No: Do not add to previou s draw Performed By: #### 5 0608 ####[facility] [place] [address], [facility] CBC COMPLETE BLOOD COUNTon Erythrocyte distribution width Auto Ratio (RBC) 14.1 % Normal 11.5-16.9 [facility] Comment on above: Order Comment: No: Do not add to previou s draw Performed By: #### 5 0608 ####[facility] Erythrocytes (RBC) 4.46 mill/mm3 Normal 3.50-5.50 [facility] Comment on above: Order Comment: No: Do not add to previou s draw Performed By: #### 5 0608 ####[facility] Hematocrit (HCT) 38.2 % Normal 36.0-48.0 [facility] Comment on above: Order Comment: No: Do not add to previou s draw Performed By: #### 5 0608 ####[facility] Hemoglobin mass conc (Bld) 12.4 g/dL Normal 12.0-15.0 [facility] Comment on above: Order Comment: No: Do not add to previou s draw Performed By: #### 5 0608 ####[facility] MCH 27.9 pg Normal 24.0-32.0 [facility] Comment on above: Order Comment: No: Do not add to previou s draw Performed By: #### 5 0608 ####[facility] MCHC mass conc (RBC) 32.5 g/dL Normal 32.0-36.0 [facility] Comment on above: Order Comment: No: Do not add to previou s draw Performed By: #### 5 0608 ####[facility] MCV 85.8 fL Normal 80.0-100.0 [facility] Comment on above: Order Comment: No: Do not add to previou s draw Performed By: #### 5 0608 ####[facility] [facility] [place] [address], [facility] PLAT CNT 386 Thou/mm3 Normal 100-400 [facility] Comment on above: Order Comment: No: Do not add to previou s draw Performed By: #### 5 0608 ####[facility] [facility].[address] WBC (Leukocytes) 13.5 Thou/mm3 High 4.0-10.0 [facility] Comment on above: Order Comment: No: Do not add to previou s draw Performed By: #### 5 0608 ####[facility] [facility].[address] LIPID PROFILEon 05-18-2017 Cholesterol 116 mg/dL Low 120-200 [facility] Comment on above: Order Comment: No: Do not add to previou s draw Result Comment: CHOL ESTEROL REFERENCE RANGE:20 YEARS AND OLDER CARDIOVASCULAR RISKLess than 200 mg/dl Low Kbfe008 to 239 mg/dl Borderline [id number] mg/dl and greater High Risk Performed By: #### 5 0608 ####[facility] Cholesterol to HDL Ratio 4.6 {ratio} High .0-4.5 [facility] Comment on above: Order Comment: No: Do not add to previou s draw Performed By: #### 5 0608 ####[facility] [facility].[address] HDL Cholesterol 25 mg/dL Normal 23-92 [facility] Comment on above: Order Comment: No: Do not add to previou s draw Result Comment: Slig ht variation in normal range could be due to gender and/or age.HDL CHOLESTEROL REFERENCE RANGE:20 years and older Cardiovascular Risk> or =60 mg/dL [id number] TO 59 mg/dL Low Risk<40 mg/dL High Risk Performed By: #### 5 0608 ####[facility], [place] [address] [place] [address] LDL Cholesterol 40 mg/dL Normal 0-130 [facility] Comment on above: Order Comment: No: Do not add to previou s draw Result Comment: LDL IS A CALCULATIONLDL IS ONLY VALID IF THE TRIG IS LESS THAN 400. Performed By: #### 5 0608 ####[facility] [facility].[address] NON-HDL CHOLESTEROL 91 mg/dL Normal [facility] Comment on above: Order Comment: No: Do not add to previou s draw Performed By: #### 5 0608 ####[facility] [facility] Triglyceride 255 mg/dL High 40-149 [facility] Comment on above: Order Comment: No: Do not add to previou s draw Result Comment: TRIG LYCERIDE REFERENCE RANGE:20 YEARS AND OLDER CARDIOVASCULAR RISKLESS THAN 150 mg/dl LOW [id number] TO 199 mg/dl BORDERLINE [id number] mg/dl AND GREATER HIGH RISK Performed By: #### 5 0608 ####[facility] [facility].[address] VLDL CHOL 51 mg/dL High 0-40 [facility] Comment on above: Order Comment: No: Do not add to previou s draw Performed By: #### 5 0608 ####[facility] [place] [address], [facility] MAGNESIUM BLOODon 05-18-2017 Magnesium 1.9 mg/dL Normal 1.9-2.7 [facility] Comment on above: Order Comment: No: Do not add to previou s draw Performed By: #### 5 0608 ####[facility] [place] [address], [facility] METANEPHRINES URINE [id number] n 05-18-2017 ARUP TIME Random Normal [facility] Comment on above: Order Comment: No: Do not add to previou s draw Creatinine 84 mg/dL Normal [facility] Comment on above: Order Comment: No: Do not add to previou s draw Creatinine Not Applicable Normal 700-1600 [facility] Comment on above: Order Comment: No: Do not add to previou s draw Result Comment: Perf ormed by [employer],[address] [facility] [place] [id number] gck.[employer], Matthew Ortega MD - Lab. Director METANEPHRINE INTERPRETATION See Note Normal [facility] Comment on above: Order Comment: [...] gender-specificreference intervals for this test in the [employer] [facility] ([employer]).See Compliance statement B: [email or web address] METANEPHRINE PER VOLUME 86 ug/L Normal [facility] Comment on above: Order Comment: No: Do not add to previou s draw METANEPHRINE UT Not Applicable Normal 39-143 [facility] Comment on above: Order Comment: No: Do not add to previou s draw METANEPHRINE/LAP HAND TOOL RATIO 102 ug/g LAP HAND TOOL Normal 0-300 [facility] Comment on above: Order Comment: No: Do not add to previou s draw NORMETANEPHRINE PER VOLUME 404 ug/L Normal [facility] Comment on above: Order Comment: No: Do not add to previou s draw NORMETANEPHRINE UT Not Applicable Normal 109-393 [facility] Comment on above: Order Comment: No: Do not add to previou s draw NORMETANEPHRINE/ LAP HAND TOOL RATIO 481 ug/g LAP HAND TOOL High 0-400 [facility] Comment on above: Order Comment: No: Do not add to previou s draw VOLUME ml Random Normal [facility] Comment on above: Order Comment: No: Do not add to previou s draw POC GLUCOSE LABon 05-18-2017 Glucose mass conc 238 mg/dL High 70-100 [facility] Comment on above: Performed By: #### 06142, 94301, 85849, 49795 ####[facility] Glucose mass conc 225 mg/dL High 70-100 [facility] Comment on above: Performed By: #### 05791 ####[facility] [place] [address], [facility] Glucose mass conc 202 mg/dL High 70-100 [facility] Comment on above: Performed By: #### 80459 ####[address] PORTABLE CHEST 1 VIEWon PORTABLE CHEST 1 VIEW [facility] HospitalDepartment of Rzm[address] [place] [id number] ========Patient Name: LYNDON WALL : 1975Sex: FAge: Race: NAMRN: [id number]. Location: [id number] Status: IVisit #: [id number] Date: 05/17/2017 11:00:00 PMCompleted Date: 05/17/2017 11:19 PMRequesting Provider: ADRIANA OWEN Attending Provider: MAXIMILIAN GALAN Report Copy To: Signs & Symptoms: Chest PainHistory: Patient history not availableComments: R/O CHFExam: PORTABLE CHEST 1 VIEWAccession #: [id number] PORTABLE CHEST 1 VIEW 05/17/2017 11:19 PM [...] findings. Electronically signed by:Jay Fulton. Transcribed by: [email or web address], User Resident: ANITA GARCIAElectronically Signed by: JAY FULTON @ 05/18/2017 08:27 AMI personally read this/these film(s) with this resident Normal [facility] Comment on above: Order Comment: No: Do not add to previou s draw PROTHROMBIN TIMEon 7 INR Coag RelTime (PPP) 1.04 {INR} Normal 0.91-1.16 [facility] Comment on above: Order Comment: [...] OF ACTION, CLINICALEFFECTIVENESS, AND OPTIMAL THERAPEUTIC RANGE. [id number]. Performed By: #### 5 7307, 67802 ####[facility] [facility].[address] Prothrombin time (PT) Coag time (PPP) 13.6 s Normal 12.3-14.8 [facility] Comment on above: Order Comment: No: Do not add to previou s draw Result Comment: ALL RESULTS MUST BE INTERPRETED WITH RESPECT TO BLOOD DRAWING ARTIFACTOR DILUTION ERROR OF ANTICOAGULANT AT THE TIME OF SAMPLING. Performed By: #### 5 7307, 88501 ####[facility] [facility].[address] TROPONIN-Ion 05-18-2017 Troponin I.cardiac mass conc 0.00 ng/mL Normal 0.00-0.04 [facility] Comment on above: Order Comment: No: Do not add to previou s draw Result Comment: REFE RENCE RANGES: 0.00 - 0.14 ng/ml NEGATIVE 0.15 - 0.25 ng/ml INDETERMINATE > 0.25 ng/ml INDICATIVE OF AN M.I. Performed By: #### 5 0608 ####[facility] [place] [address], [facility] TSHon 05-18-2017 Thyroid stimulating hormone (TSH) 3.56 MICRO-IU/ML Normal 0.34-5.60 [facility] Comment on above: Performed By: #### 01689 ####[facility] [facility] [place] [address], [facility] UA,MICROSCOPIC REQUIREDon Bilirubin (total) Negative Normal NEGATIVE [facility] Comment on above: Order Comment: No: Do not add to previou s draw Performed By: #### 9 0150 ####[facility] [place] [address], [facility] BLOOD Negative Normal NEGATIVE [facility] Comment on above: Order Comment: No: Do not add to previou s draw Performed By: #### 9 0150 ####[facility] [place] [address], [facility] EPIS MANY Abnormal FEW [facility] Comment on above: Order Comment: No: Do not add to previou s draw Performed By: #### 9 0150 ####[facility] [place] [address], [facility] Erythrocytes (RBC) 0-2 Abnormal 0-0 [facility] Comment on above: Order Comment: No: Do not add to previou s draw Performed By: #### 9 0150 ####[facility] [place] [address], [facility] Glucose mass conc 50 mg/dL Abnormal NEGATIVE [facility] Comment on above: Order Comment: No: Do not add to previou s draw Performed By: #### 9 0150 ####[facility] [place] [address], [facility] KETONE Negative Normal NEGATIVE [facility] Comment on above: Order Comment: No: Do not add to previou s draw Performed By: #### 9 0150 ####[facility] [place] [address], [facility] LEUK RASHMI Negative Normal NEGATIVE [facility] Comment on above: Order Comment: No: Do not add to previou s draw Performed By: #### 9 0150 ####[facility] [place] [address], [facility] MUCUS THREADS OCC Abnormal NONE SEEN [facility] Comment on above: Order Comment: No: Do not add to previou s draw Performed By: #### 9 0150 ####[facility] [place] [address], [facility] pH of blood 5.0 [pH] Normal 5.0-8.0 [facility] Comment on above: Order Comment: No: Do not add to previou s draw Performed By: #### 9 0150 ####[facility] [place] [address], [facility] Protein Negative Normal NEGATIVE [facility] Comment on above: Order Comment: No: Do not add to previou s draw Performed By: #### 9 0150 ####[facility] [place] [address], [facility] SPEC GRAV 1.020 Normal 1.015-1.02 0 [facility] Comment on above: Order Comment: No: Do not add to previou s draw Performed By: #### 9 0150 ####[facility] [place] [address], [facility] Urine, appearance SL CLOUDY Abnormal CLEAR [facility] Comment on above: Order Comment: No: Do not add to previou s draw Performed By: #### 9 0150 ####[facility] [place] [address], [facility] Urine, bacteria in sediment OCC Abnormal NONE SEEN [facility] Comment on above: Order Comment: No: Do not add to previou s draw Performed By: #### 9 0150 ####[facility] [place] [address], [facility] Urine, color YELLOW Normal YELLOW [facility] Comment on above: Order Comment: No: Do not add to previou s draw Performed By: #### 9 0150 ####[facility] [place] [address], [facility] Urine, nitrite presence Negative Normal NEGATIVE [facility] Comment on above: Order Comment: No: Do not add to previou s draw Performed By: #### 9 0150 ####[facility] [place] [address], [facility] WBC UA 3-5 Abnormal 0-0 [facility] Comment on above: Order Comment: No: Do not add to previou s draw Performed By: #### 9 0150 ####[facility] [place] [address], [facility] BASIC METABOLIC PANELon 10-0 -2016 Calcium 9.0 mg/dL Normal 8.6-10.3 [facility] Comment on above: Order Comment: No: Do not add to previou s draw Performed By: #### 3 5200, 10371, 93215, 68689 ####[facility] [place] [address], [facility] Chloride 105 mmol/L Normal 98-107 [facility] Comment on above: Order Comment: No: Do not add to previou s draw Performed By: #### 3 5200, 83764, 68182, 04631 ####[facility] [place] [address], [facility] CO2 23 mmol/L Normal 21-31 [facility] Comment on above: Order Comment: No: Do not add to previou s draw Performed By: #### 3 5200, 10738, 70715, 97158 ####[facility] [place] [address], [facility] Creatinine 0.74 mg/dL Normal 0.60-1.20 [facility] Comment on above: Order Comment: No: Do not add to previou s draw Performed By: #### 3 5200, 13348, 12668, 78232 ####[facility] eGFR (black) mL/min/{1.73_m2} Normal >60 [facility] Comment on above: Order Comment: No: Do not add to previou s draw Performed By: #### 3 5200, 28028, 92918, 53655 ####[facility] eGFR (non-black) mL/min/{1.73_m2} Normal >60 Th e [facility] Comment on above: Order Comment: No: Do not add to previou s draw Performed By: #### 3 5200, 63429, 32072, 29487 ####[facility] [place] [address], [facility] Glucose mass conc 218 mg/dL High 70-100 [facility] Comment on above: Order Comment: No: Do not add to previou s draw Performed By: #### 3 5200, 54691, 28837, 81740 ####[facility] [place] [address], [facility] Potassium molar conc 3.5 mmol/L Normal 3.5-5.1 [facility] Comment on above: Order Comment: No: Do not add to previou s draw Performed By: #### 3 5200, 39471, 85192, 71349 ####[facility] Sodium 138 mmol/L Normal 136-145 [facility] Comment on above: Order Comment: No: Do not add to previou s draw Performed By: #### 3 5200, 66896, 16532, 17622 ####[facility] Urea nitrogen 29 mg/dL High 7-25 [facility] Comment on above: Order Comment: No: Do not add to previou s draw Performed By: #### 3 5200, 03724, 95020, 30349 ####[facility] CBC COMPLETE BLOOD COUNTon Erythrocyte distribution width Auto Ratio (RBC) 14.5 % Normal 11.5-16.9 [facility] Comment on above: Order Comment: No: Do not add to previou s draw Performed By: #### 5 0608 ####[facility] Erythrocytes (RBC) 4.54 mill/mm3 Normal 3.50-5.50 [facility] Comment on above: Order Comment: No: Do not add to previou s draw Performed By: #### 5 0608 ####[facility] [place] [address], [facility] Hematocrit (HCT) 39.3 % Normal 36.0-48.0 [facility] Comment on above: Order Comment: No: Do not add to previou s draw Performed By: #### 5 0608 ####[facility] [place] [address], [facility] Hemoglobin mass conc (Bld) 12.6 g/dL Normal 12.0-15.0 [facility] Comment on above: Order Comment: No: Do not add to previou s draw Performed By: #### 5 0608 ####[facility] MCH 27.8 pg Normal 24.0-32.0 [facility] Comment on above: Order Comment: No: Do not add to previou s draw Performed By: #### 5 0608 ####[facility] MCHC mass conc (RBC) 32.1 g/dL Normal 32.0-36.0 [facility] Comment on above: Order Comment: No: Do not add to previou s draw Performed By: #### 5 0608 ####[facility] MCV 86.7 fL Normal 80.0-100.0 [facility] Comment on above: Order Comment: No: Do not add to previou s draw Performed By: #### 5 0608 ####[facility] [facility].[address] PLAT CNT 419 Thou/mm3 High 100-400 [facility] Comment on above: Order Comment: No: Do not add to previou s draw Performed By: #### 5 0608 ####[facility] [facility].[address] WBC (Leukocytes) 17.8 Thou/mm3 High 4.0-10.0 [facility] Comment on above: Order Comment: No: Do not add to previou s draw Performed By: #### 5 0608 ####[facility] [facility].[address] CPK-MB PROFILEon 05-17-2017 CKMB 1.5 ng/mL Normal 0.0-5.0 [facility] Comment on above: Result Comment: IF TOTAL CK <200 U/L AND : 1. CKMB IS 5-10 NG/ML----BORDERLINE 2. CKMB IS >10 NG/ML----INDICATIVE OF CA OR IF TOTAL CK >200 U/L AND CKMB INDEX >1.9----INDICATIVE OF [place] Performed By: #### 3 5200, 82746, 61876, 26899 ####[facility] CKMB 10.0 ng/mL Critically high 0.0-1.9 [facility] Comment on above: Performed By: #### 38800, 73204, 24552, 18501 ####[facility] Creatine kinase (CK) 15 U/L Low 30-223 [facility] Comment on above: Performed By: #### 32221, 10545, 28150, 04277 ####[facility] MAGNESIUM BLOODon 05-17-2017 Magnesium 2.0 mg/dL Normal 1.9-2.7 [facility] Comment on above: Order Comment: No: Do not add to previou s draw Performed By: #### 3 5200, 60707, 51657, 69875 ####[facility] POC GLUCOSE LABon 05-17-2017 Glucose mass conc 214 mg/dL High 70-100 [facility] Comment on above: Performed By: #### 75722 ####[facility] [facility] [place] [address], [facility] TROPONIN-Ion 05-17-2017 Troponin I.cardiac mass conc 0.01 ng/mL Normal 0.00-0.04 [facility] Comment on above: Order Comment: No: Do not add to previou s draw Result Comment: REFE RENCE RANGES: 0.00 - 0.04 ng/ml NORMAL 0.05 - 0.50 ng/ml INDETERMINATE > 0.50 ng/ml CONSISTENT WITH AN M.I. Performed By: #### 3 5200, 25145, 46048, 24060 ####[facility] [place] [address], [facility] Encounters Encounter Date Encounter Type Care Provider Facility Start: 07-21-2024 End: 07-21-2024 ambulatory Paramjit SMITH Facility:[facility] Start: 07-21-2024 End: 07-21-2024 Patient encounter procedure Paramjit Meri SMITH [facility] [place] Start: 01-09-[address] RICHARD ALVARADO . Facili ty:[facility] Start: 05-23-2022 End: 05-23-2022 ambulatory GASTON ARELLANO Facility: Start: 04-07-[address] RICHARD ALVARADO . Facili ty:[facility] Start: 04-03-2022 Encounter for genera l adult medical examination without abnormal findings DR RICHARD ALVARADO . [facility] Start: 04-02-2022 End: 04-02-[address] RICHARD ALVARADO . Facility: Start: 04-02-2022 End: 04-02-2022 Encounter for general adult medical examination without abnormal findings DR RICHARD ALVARADO . Facility: Start: 03-31-2022 End: 04-01-[address] RICHARD ALVARADO . Facility: Start: 05-17-2017 End: 05-21-2017 Ambulatory MAXIMILIAN GALAN Facility:[facility] Start: 04-17-2017 End: 04-18-2017 Ambulatory DEFAULT PHYSICIAN Facility:[facility] Procedures Date Procedure Procedure Detail Performing Clinician Start: 10-10-2018 Trichilemmal cyst (disorder) Paramjit Hussein Start: 05-20-2017 FLUOROSCOPY OF MULTIPLE CORONARY ARTERIES USING OTH CONTRAST MAYCO FAITH Start: 06-12-2015 Trichilemmal cyst (disorder) Paramjit BRUMFIELD L Biopsy of breast Paramjit Hussein Bypass of stomach Paramjit PACE Cardiac catheterization John SMITH Cholecystectomy Paramjit NILL Cystopexy Paramjit NILL Esophagogastroduodenoscopy Araceli SMITH Hysterectomy Paramjit NILL Ligation of fallopian tube Araceli man NILL Immunizations Immunization Date Immunization Notes Care Provider Fa cility 11-04-2020 SARS-CoV-2 (COVID-19 ) mRNA-1273 vaccine Paramjit NILL [facility] Comment on above: Result Comment: 2022: [id number] 10-05-2020 SARS-CoV-2 (COVID-19 ) mRNA-1273 vaccine Paramjit BRUMFIELDL [facility] Comment on above: Result Comment: 2022: [id number] Payers Date Payer Category Payer Unknown [id number] 2.16.84 [id number] 1973 Unknown [id number] 2.16.84 [id number] 1973 Unknown [id number] 2.16.84 [id number] 1973 Unknown [id number] 2.16.84 [id number] 1973 Unknown [id number] 2.16.84 [id number] 1973 Unknown [id number] 2.16.8 [id number] 1959 Self-pay 1959 Unknown [id number] 1959 Unknown [id number] 1959 Unknown [id number] Unknown Social History Date Type Detail Facility Tobacco smoking status No Smoking Status Entered [facility] Sex Assigned At Female [facility] Evaluation + Plan note Note Date & Type Note Facility Evaluation + Plan note No data available for this section [facility] Discharge instructions Note Date & Type Note Facility Hospital Discharge instructions No data available for this section [facility] [place] Progress note Note Date & Type Note Facility Progress note No data available for this section [facility] Summary Purpose Family History No Family History Records FoundNo Family History Records FoundNo Family History Records Found No data available for this section Advance Directives No Advanced Directives Records FoundNo Advanced Directives Records FoundNo Advanced Directives Records Found Additional Source Comments INFORMATION SOURCE (unrecogn ized section and content) DATE CREATED AUTHOR 02/07/2018 [facility] DATE CREATED AUTHOR AUTHOR'S ORGANIZ ATION 01/18/2023 [facility] DATE CREATED AUTHOR AUTHOR'S ORGANIZ ATION 07/24/2024 [facility] Patient Care team informatio n (unrecognized section and content) Personnel Name: Richard Alvarado MD Address: Address: [address] [place] [address] FOR RECORDS PERTAINING TO PATIENTS WHO ARE [...] BE BASED ON THE PRIMARY CLINICAL RECORDS. [facility] [employer] [facility] provides no warranty or guarantee of the accuracy or completeness of information in this document.
[2024-10-06 12:11] LABS: Estimated Average Glucose 105 mg/dL; Glycohemoglobin A1C 5.3 % (4.5-6.2)
== END 2024-10-06 10:41 | disposition home or self-care (01) ==
LOC: LAB 10:54
PROVIDERS: PCP Family Medicine; Visit Provider Family Medicine
DX: E11.9 Type 2 diabetes mellitus without complications (principal)
CPT/HCPCS: 36415; 83036

== ENCOUNTER 2025-05-21 06:54 | Outpatient (OUT) | payer BC, SELFPAY ==
--- OUTSIDE RECORDS SUMMARY | 2025-05-21 07:00 | XMS_ITS | CCD ---
Author Organization [facility] Care Team Providers Care Dental Office Receptionist Name Role Phone PHYSICIAN, DEFAULT Unavailable Unavailable PHYSICIAN, DEFAULT Unavailable Unavailable MAXIMILIAN GALAN Unavailable Unavailable HOY, RICHARD Unavailable Unavailable HOFLOYD PaulinoLAS Unavailable Unavailable MS Unavailable Unavailable BURKET, MAYCO Unavailable Unavailable KARIM, DANG Unavailable Unavailable HOY ., DR RAMOS Admitting Unavailable HOY ., DR RAMOS Attending Unavailable LAARELI, GASTON Primary Care Unavailable HOY ., DR RAMOS Consulting Unavailable LALOR, GASTON Primary Care Unavailable KARASIK ., DR FRANCIS Admitting Unavailabl e KARASIK ., DR FRANCIS Attending Unavailabl e KARASIK ., DR FARNCIS Consulting Unavailabl e HOY ., DR RAMOS Primary Care Unavailable HOY ., DR RAMOS Admitting Unavailable HOY ., DR RAMOS Attending Unavailable HOY ., DR RAMOS Admitting Unavailable LALOR, GASTON Primary Care Unavailable HOY ., DR [...] source) NKA Drug allergy (disorder) 7 [facility] Repository (1 source) No Known Allergies; Translations: [No Known Allergies] Propensity to adverse reactions (disorder) [facility] Rep[facility] (1 source) diazePAM Drug Allergy [facility] Rep[facility] (1 source) NSAIDs Drug allergy (disorder) [facility] (1 source) No Known Medication Allergies; Translations: [No Known Medication Allergies] Propensity to adverse reactions (disorder) 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 . Normal [facility] Comment on above: Result Comment: Performed at: WB Performed By: #### [id number] #### [facility] [address] [address] [address] Williams Rdz Age Gdln ACOG Testing 30-65 Normal [facility] Comment on above: Performed By: #### [id number] #### [facility] [address] [address] [address] Williams Rdz DIAGNOSIS: Comment Normal [facility] Comment on above: Result Comment: NEGATIVE FOR INTRAEPITHE LIAL LESION OR MALIGNANCY. Performed at: WB Performed By: #### [id number] #### [facility] [address] [address] [address] Williams Rdz HPV Aptima Negative Normal Negative [facility] Comment on above: Result Comment: This nucleic acid amplif ication test detects fourteen high-risk HPV types (16,18,31,33,35,39,45,51,52,56,58,59,66,68) without differentiation. Performed at: =G Performed By: #### 4 [id number] #### [facility] [address] [address] [address] Williams Rdz Methodology: Comment Normal [facility] Comment on above: Result Comment: This liquid based ThinPr ep(R) pap test was screened with the use of an image guided system. Performed at: WB Performed By: #### 4 [id number] #### [facility] [address] [place] [address] Dr. Williams Rdz Note: Comment Normal [facility] Comment on above: Result Comment: The Pap smear is a scree kyle test designed to aid in the detection of premalignant and malignant conditions of the uterine cervix. It is not a diagnostic procedure and should not be used as the sole means of detecting cervical cancer. Both false-positive and false-negative reports do occur. . Performed at: WB Performed By: #### [id number] #### [facility] [address] [place] [address] Dr. Williams Rdz Performed by: Comment Normal [facility] Comment on above: Result Comment: Heather Michael Cytotechn ologist (ASCP) Performed at: WB Performed By: #### [id number] #### [facility] [address] [place] [address] Dr. Williams Rdz Specimen adequacy: Comment Normal [facility] Comment on above: Result Comment: Satisfactory for evaluat ion. Endocervical and/or squamous metaplastic cells (endocervical component) are present. Performed at: WB Performed By: #### 4 [id number] #### [facility] [address] [place] [address] Dr. Williams Rdz ESTROGENon 04-06-2022 Estrogens, Total 109 pg/mL Normal [facility] Comment on above: Result Comment: Prepubertal < 40 Female Cycle: 1-10 Days 16 - 328 11-20 Days 34 - 501 21-30 Days 48 - 350 Post-Menopausal 40 - 244 Performed By: #### E STROG #### [facility] [address] [place] [address] Dr. Williams Rdz VITAMIN B1 (THIAMINE)on 03-13 Vit. B1, Whole Blood 143.1 nmol/L Normal 66.5-200.0 [facility] Comment on above: Performed By: #### VITB1T #### [facility] [address] [place] [address] Dr. Williams Rdz FSHon 04-03-2022 FSH 36.0 mIU/mL Normal [facility] Comment on above: Result Comment: Adult Female: Follicular phase 3.5 - 12.5 Ovulation phase 4.7 - 21.5 Luteal phase 1.7 - 7.7 Postmenopausal 25.8 - 134.8 Performed By: #### V ITB1T #### [facility] [address] [place] [address] Dr. Williams Rdz INSULINon 04-02-2022 Insulin 9.9 uIU/mL Normal 2.6-24.9 [facility] Comment on above: Performed By: #### VITB1T #### [facility] [address] [place] [address] Dr. Williams Rdz OCC BLD IMMUNO SCREENon 03-13 OCCULT BLOOD Negative Normal NEGATIVE [facility] Comment on above: Performed By: #### OBSCRN #### [facility] [address] [place] [address] Dr. Williams Rdz PROGESTERONEon 04-01-2022 Progesterone 0.1 ng/mL Normal [facility] Comment on above: Result Comment: Follicular phase 0.1 - 0 .9 Luteal phase 1.8 - 23.9 Ovulation phase 0.1 - 12.0 First trimester 11.0 - 44.3 Second trimester 25.4 - 83.3 Third trimester 58.7 - 214.0 Postmenopausal 0.0 - 0.1 Performed By: #### V ITB1T #### [facility] [address] [place] [address] Dr. Williams Rdz PROLACTINon 04-01-2022 Prolactin 9.4 ng/mL Normal 4.8-23.3 [facility] Comment on above: Performed By: #### PROLAC #### [facility] [address] [place] [address] Dr. Williams Rdz T4, T3U, FTI LABCORPon 04-01 Free Thyroxine Index 2.3 Normal 1.2-4.9 [facility] Comment on above: Performed By: #### VITB1T #### [facility] [address] [place] [address] Dr. Williams Rdz T3 Uptake 26 % Normal 24-39 [facility] Comment on above: Performed By: #### VITB1T #### [facility] [address] [address] [address] Williams Rdz T4 [Mass/Vol] 8.8 ug/dL Normal 4.5-12.0 [facility] Comment on above: Performed By: #### VITB1T #### [facility] [address] [address] [address] Williams Rdz TESTOSTERONE, TOTALon 2021 Testosterone [Mass/Vol] 17 ng/dL Normal 4-50 [facility] Comment on above: Performed By: #### TESTTOT #### [facility] [address] [place] [address] Dr. Williams Rdz VIT D 25-OH LABCORPon 2021 Vitamin D, 25-Hydroxy 29.6 ng/mL Critically low 30.0-100.0 [facility] Comment on above: Result Comment: Vitamin D deficiency has been defined by the [place] of [employer] and an Endocrine Society practice guideline as a level of serum 25-OH vitamin D less than 20 ng/mL (1,2). The Endocrine Society went on to further define vitamin D insufficiency as a level between 21 and 29 ng/mL (2). 1. IOM ([place] of Medicine). 2010. Dietary reference intakes for calcium and D. [place]: The National Academies Press. 2. Guido MF, [place], Anali GARDINER, et al. Evaluation, treatment, and prevention of vitamin D deficiency: an Endocrine Society clinical practice guideline. JCEM. 2010; 96(7):1911-30. Performed By: #### V ITB1T #### [facility] [address] [address] [address] Williams Rdz CBC AUTO DIFFon 03-31-2022 BASO # 0.0 103/ul Normal 0.0-0.1 [facility] Comment on above: Performed By: #### VITB1T #### [facility] [address] [address] [address] Williams Rdz Basophils/100 WBC (Bld) 0.3 % Normal 0.2-2.0 [facility] Comment on above: Performed By: #### VITB1T #### [facility] [address] [place] [address] Dr. Williams Rdz EO # 0.1 103/ul Normal 0.0-0.7 [facility] Comment on above: Performed By: #### VITB1T #### [facility] [address] [place] [address] Dr. Williams Rdz Eosinophils/100 WBC (Bld) 0.6 % Critically low 0.9-7.0 [facility] Comment on above: Performed By: #### VITB1T #### [facility] [address] [place] [address] Dr. Williams Rdz Erythrocyte distribution width (RBC) [Ratio] 14.4 % Normal 11.0-15.0 [facility] Comment on above: Performed By: #### VITB1T #### [facility] [address] [place] [address] Dr. Williams Rdz Hematocrit (Bld) [Volume fraction] 36.2 % Normal 36.0-48.0 [facility] Comment on above: Performed By: #### VITB1T #### [facility] [address] [place] [address] Dr. Williams Rdz Hemoglobin (Bld) [Mass/Vol] 11.1 g/dL Critically low 12.0-16.0 [facility] Comment on above: Performed By: #### VITB1T #### [facility] [address] [place] [address] Dr. Williams Rdz IG # 0.03 10e3/ul Normal 0.00-0.03 [facility] Comment on above: Performed By: #### VITB1T #### [facility] [address] [place] [address] Dr. Williams Rdz IG % 0.3 % Normal 0.0-0.5 [facility] Comment on above: Performed By: #### VITB1T #### [facility] [address] [place] [address] Dr. Williams Rdz LYMPH # 2.5 103/ul Normal 1.2-3.8 [facility] Comment on above: Performed By: #### VITB1T #### [facility] [address] [place] [address] Dr. Williams Rdz Lymphocytes/100 WBC (Bld) 26.4 % Normal 20.5-60.0 [facility] Comment on above: Performed By: #### VITB1T #### [facility] [address] [place] [address] Dr. Williams Rdz MANUAL DIFF REQ NO Normal [facility] Comment on above: Performed By: #### VITB1T #### [facility] [address] [place] [address] Dr. Williams Rdz MCH (RBC) [Entitic mass] 23.8 pg Critically low 26.7-34.0 [facility] Comment on above: Performed By: #### VITB1T #### [facility] [address] [place] [address] Dr. Williams Rdz MCHC (RBC) [Mass/Vol] 30.7 g/dL Normal 29.9-35.2 [facility] Comment on above: Performed By: #### VITB1T #### [facility] [address] [place] [address] Dr. Williams Rdz MCV (RBC) [Entitic vol] 77.7 fL Critically low 81.0-99.0 [facility] Comment on above: Performed By: #### VITB1T #### [facility] [address] [place] [address] Dr. Williams Rdz MONO # 0.6 103/ul Normal 0.3-0.8 [facility] Comment on above: Performed By: #### VITB1T #### [facility] [address] [place] [address] Dr. Williams Rdz Monocytes/100 WBC (Bld) 6.7 % Normal 1.7-12.0 [facility] Comment on above: Performed By: #### VITB1T #### [facility] [address] [place] [address] Dr. Williams Rdz NEUT # 6.2 103/ul Normal 1.4-6.5 [facility] Comment on above: Performed By: #### VITB1T #### [facility] [address] [place] [address] Dr. Williams Rdz Neutrophils/100 WBC (Bld) 65.7 % Normal 43.0-75.0 [facility] Comment on above: Performed By: #### VITB1T #### [facility] [address] [place] [address] Dr. Williams Rdz Platelet mean volume (Bld) [Entitic vol] 8.6 fL Critically low 9.5-13.5 [facility] Comment on above: Performed By: #### VITB1T #### [facility] [address] [place] [address] Dr. Williams Rdz PLT 407 103/ul Normal 150-450 [facility] Comment on above: Performed By: #### VITB1T #### [facility] [address] [place] [address] Dr. Williams Rdz RBC 4.66 106/ul Normal 4.20-5.40 [facility] Comment on above: Performed By: #### VITB1T #### [facility] [address] [place] [address] Dr. Williams Rdz WBC 9.4 103/ul Normal 4.0-11.0 [facility] Comment on above: Performed By: #### VITB1T #### [facility] [address] [place] [address] Dr. Williams Rdz GLYCOHEMOGLOBIN A1Con 2021 ADA RECOMMENDATION SEE BELOW Normal [facility] Comment on above: Result Comment: ADA RECOMMENDED LIMIT 4. 0 - 6.0 ADA THERAPEUTIC TARGET < 7.0 ACTION SUGGESTED > 7.0 Performed By: #### A 1C #### [facility] [address] [place] [address] Dr. Williams Rdz Glucose [Mass/Vol] 111 mg/dL Normal [facility] Comment on above: Performed By: #### A1C #### [facility] [address] [place] [address] Dr. Williams Rdz HbA1c (Bld) [Mass fraction] 5.5 % Normal 4.5-6.2 [facility] Comment on above: Performed By: #### A1C #### [facility] [address] [address] [address] Williams Rdz IRONon 03-31-2022 Iron [Mass/Vol] 43.0 ug/dL Critically low 50.0-170.0 [facility] Comment on above: Performed By: #### VITB1T #### [facility] [address] [address] [address] Williams Rdz LIPID PROFILEon 03-31-2022 CHOL-HDL RATIO NORM SEE BELOW Normal [facility] Comment on above: Result Comment: 3.3 - 4.4 LOW RISK 4.4 - 7.1 AVERAGE RISK 7.1 - 11.0 MODERATE RISK >11.0 HIGH RISK Performed By: #### T SH, CMP, LIPID #### [facility] [address] [address] [address] Williams Rdz Cholesterol [Mass/Vol] 142 mg/dL Normal <=200 [facility] Comment on above: Performed By: #### TSH, CMP, LIPID #### [facility] [address] [place] [address] Dr. Williams Rdz Cholesterol in HDL [Mass/Vol] 46 mg/dL Normal 40-60 [facility] Comment on above: Performed By: #### TSH, CMP, LIPID #### [facility] [address] [address] [address] Williams Rdz Cholesterol in LDL [Mass/Vol] 78.4 mg/dL Normal [facility] Comment on above: Performed By: #### TSH, CMP, LIPID #### [facility] [address] [address] [address] Williams Rdz Cholesterol.tota l/Cholesterol in HDL [Mass ratio] 3.1 {ratio} Normal [facility] Comment on above: Performed By: #### TSH, CMP, LIPID #### [facility] [address] [address] [address] Williams Rdz HDL NORMAL > or = 60 mg/dl - LO W CARDIOVASCULAR RISK <40 mg/dl - HIGH CARDIOVASCULAR RISK Normal [facility] Comment on above: Performed By: #### TSH, CMP, LIPID #### [facility] [address] [place] [address] Dr. Williams Rdz LDL CALC NORMAL SEE BELOW Normal [facility] Comment on above: Result Comment: <100 mg/dl OPTIMAL 100 - 129 mg/dl NEAR OR ABOVE OPTIMAL 130 - 159 mg/dl BORDERLINE HIGH 160 - 189 mg/dl HIGH >190 mg/dl VERY HIGH Performed By: #### T SH, CMP, LIPID #### [facility] [address] [address] [address] Williams Rdz Triglyceride [Mass/Vol] 88 mg/dL Normal <=150 [facility] Comment on above: Performed By: #### TSH, CMP, LIPID #### [facility] [address] [place] [address] Dr. Williams Rdz VLDL CALC 17.6 mg/dL Normal [facility] Comment on above: Performed By: #### TSH, CMP, LIPID #### [facility] [address] [place] [address] Dr. Williams dRz PROF 14(COMP METB)on 022 Albumin [Mass/Vol] 3.8 g/dL Normal 3.4-5.0 [facility] Comment on above: Performed By: #### TSH, CMP, LIPID #### [facility] [address] [place] [address] Dr. Williams Rdz Albumin/Globulin [Mass ratio] 0.9 {ratio} Normal [facility] Comment on above: Performed By: #### TSH, CMP, LIPID #### [facility] [address] [place] [address] Dr. Williams Rdz ALP [Catalytic activity/Vol] 123 U/L Critically high 46-116 [facility] Comment on above: Performed By: #### TSH, CMP, LIPID #### [facility] [address] [place] [address] Dr. Williams Rdz ALT [Catalytic activity/Vol] 26 U/L Normal 14-59 [facility] Comment on above: Performed By: #### TSH, CMP, LIPID #### [facility] [address] [address] [address] Williams Rdz Anion gap [Moles/Vol] 9.1 mmol/L Normal [facility] Comment on above: Performed By: #### TSH, CMP, LIPID #### [facility] [address] [address] [address] Williams Rdz AST [Catalytic activity/Vol] 14 U/L Critically low 15-37 [facility] Comment on above: Performed By: #### TSH, CMP, LIPID #### [facility] [address] [address] [address] Williams Rdz Bilirubin [Mass/Vol] 0.5 mg/dL Normal 0.2-1.0 [facility] Comment on above: Performed By: #### TSH, CMP, LIPID #### [facility] [address] [place] [address] Dr. Williams Rdz Calcium [Mass/Vol] 8.9 mg/dL Normal 8.5-10.1 [facility] Comment on above: Performed By: #### TSH, CMP, LIPID #### [facility] [address] [address] [address] Williams Rdz Chloride [Moles/Vol] 103 mmol/L Normal 98-107 [facility] Comment on above: Performed By: #### TSH, CMP, LIPID #### [facility] [address] [address] [address] Williams Rdz CO2 [Moles/Vol] 32.3 mmol/L Critically high 21.0-32.0 [facility] Comment on above: Performed By: #### TSH, CMP, LIPID #### [facility] [address] [address] [address] Williams Rdz Creatinine [Mass/Vol] 0.71 mg/dL Normal 0.55-1.02 [facility] Comment on above: Performed By: #### TSH, CMP, LIPID #### [facility] [address] [address] [address] Williams Rdz EGFR-AF MOROCCAN >60 Normal >=60 [facility] Comment on above: Performed By: #### TSH, CMP, LIPID #### [facility] [address] [address] [address] Williams Rdz EGFR-NON AF MOROCCAN >60 Normal >=60 [facility] Comment on above: Performed By: #### TSH, CMP, LIPID #### [facility] [address] [address] [address] Williams Rdz Globulin (S) [Mass/Vol] 4.0 g/dL Normal [facility] Comment on above: Performed By: #### TSH, CMP, LIPID #### [facility] [address] [address] [address] Williams Rdz Glucose [Mass/Vol] 105 mg/dL Normal 74-106 [facility] Comment on above: Performed By: #### TSH, CMP, LIPID #### [facility] [address] [place] [address] Dr. Williams Rdz Potassium [Moles/Vol] 3.4 mmol/L Critically low 3.5-5.1 [facility] Comment on above: Performed By: #### TSH, CMP, LIPID #### [facility] [address] [place] [address] Dr. Williams Rdz Protein [Mass/Vol] 7.8 g/dL Normal 6.4-8.2 [facility] Comment on above: Performed By: #### TSH, CMP, LIPID #### [facility] [address] [address] [address] Williams Rdz Sodium [Moles/Vol] 141 mmol/L Normal 136-145 [facility] Comment on above: Performed By: #### TSH, CMP, LIPID #### [facility] [address] [address] [address] Williams Rdz Urea nitrogen [Mass/Vol] 19.0 mg/dL Critically high 7.0-18.0 [facility] Comment on above: Performed By: #### TSH, CMP, LIPID #### [facility] [address] [address] [address] Williams Rdz Urea nitrogen/Creatin ine [Mass ratio] 26.8 mg/mg Normal [facility] Comment on above: Performed By: #### TSH, CMP, LIPID #### [facility] [address] [address] [address] Williams Rdz TSHon 03-31-2022 TSH 2.384 uIU/mL Normal 0.358-3.74 0 [facility] Comment on above: Performed By: #### TSH, CMP, LIPID #### [facility] [address] [address] [address] Williams Rdz VIT B12 AND FOLATEon 022 Cobalamin (Vitamin B12) [Mass/Vol] 856.0 pg/mL Normal 193.0-986. 0 [facility] Comment on above: Performed By: #### VITB1T #### [facility] [address] [address] [address] Williams Rdz FOLATE 14.50 ng/mL Normal 8.60-58.90 [facility] Comment on above: Performed By: #### VITB1T #### [facility] [address] [address] [address] Williams Rdz Discharge Summaryon 05-22-20 17 Discharge Summary MR#: [id number] Lyndon [facility] Admitted: 05/17/2017 Discharged: [...] June 04, 2017, at 09:45 a.m. at [facility].Reviewed By:Margy Davis MD 05/26/2017 01:03 PElectronically Signed by:Dang Borjas DO 05/28/2017 04:44 P ____Dang Borjas DO I personally saw this patient on the day of the encounter, performed thekey portion(s) of the service and participated in the management andconfirm the resident's documentation. Please note there may be anadditional personal documentation from me. Date Dict: 05/21/2017/05:25 P/Taryn Carter Trans: 05/22/2017 02:16 P/bettyoDParish_JN:[id number]: Richard Alvarado M.D. [address] [facility] [id number] Normal [facility] BASIC METABOLIC PANELon 10- Calcium 8.8 mg/dL Normal 8.6-10.3 [facility] Comment on above: Order Comment: No: Do not add to previou s draw Performed By: #### 3 5200, [id number], [id number], [id number] ####[facility] [place] [address], [facility] Chloride 102 mmol/L Normal 98-107 [facility] Comment on above: Order Comment: No: Do not add to previou s draw Performed By: #### 3 5200, [id number], [id number], [id number] ####[facility] [place] [address], [facility] CO2 26 mmol/L Normal 21-31 [facility] Comment on above: Order Comment: No: Do not add to previou s draw Performed By: #### 3 5200, 30938, [id number], [id number] ####[facility] [place] [address], [facility] Creatinine 0.67 mg/dL Normal 0.60-1.20 [facility] Comment on above: Order Comment: No: Do not add to previou s draw Performed By: #### 3 5200, 14041, [id number], [id number] ####[facility] [place] [address], [facility] [facility] eGFR (black) mL/min/{1.73_m2} Normal >60 [facility] Comment on above: Order Comment: No: Do not add to previou s draw Performed By: #### 3 5200, 12471, 21767, 64501 ####[facility] [place] [address], [facility] eGFR (non-black) mL/min/{1.73_m2} Normal >60 [facility] Comment on above: Order Comment: No: Do not add to previou s draw Performed By: #### 3 5200, 58306, 80255, 30778 ####[facility] [place] [address], [facility] Glucose mass conc 235 mg/dL High 70-100 [facility] Comment on above: Order Comment: No: Do not add to previou s draw Performed By: #### 3 5200, 50642, 92030, 90500 ####[facility] [place] [address], [facility] Potassium molar conc 4.2 mmol/L Normal 3.5-5.1 [facility] Comment on above: Order Comment: No: Do not add to previou s draw Performed By: #### 3 5200, 37349, 66945, 74129 ####[facility] [place] [address], [facility] Sodium 137 mmol/L Normal 136-145 [facility] Comment on above: Order Comment: No: Do not add to previou s draw Performed By: #### 3 5200, 72109, 55611, 17988 ####[facility] [place] [address], [facility] Urea nitrogen 18 mg/dL Normal 7-25 [facility] Comment on above: Order Comment: No: Do not add to previou s draw Performed By: #### 3 5200, 62622, 78353, 69339 ####[facility] [place] [address], [facility] CBC COMPLETE BLOOD COUNTon - Erythrocyte distribution width Auto Ratio (RBC) 14.0 % Normal 11.5-16.9 [facility] Comment on above: Order Comment: No: Do not add to previou s draw Performed By: #### 3 5200, 79651, 36402, 64576 ####[facility] [place] [address], [facility] Erythrocytes (RBC) 4.43 mill/mm3 Normal 3.50-5.50 [facility] Comment on above: Order Comment: No: Do not add to previou s draw Performed By: #### 3 5200, 26244, 40970, 25567 ####[facility] Hematocrit (HCT) 38.1 % Normal 36.0-48.0 [facility] Comment on above: Order Comment: No: Do not add to previou s draw Performed By: #### 3 5200, 14746, 98689, 76031 ####[facility] Hemoglobin mass conc (Bld) 12.4 g/dL Normal 12.0-15.0 [facility] Comment on above: Order Comment: No: Do not add to previou s draw Performed By: #### 3 5200, 60204, 70713, 76933 ####[facility] [facility] MCH 27.9 pg Normal 24.0-32.0 [facility] Comment on above: Order Comment: No: Do not add to previou s draw Performed By: #### 3 5200, 69494, 97763, 97324 ####[facility] [facility] MCHC mass conc (RBC) 32.5 g/dL Normal 32.0-36.0 [facility] Comment on above: Order Comment: No: Do not add to previou s draw Performed By: #### 3 5200, 40250, 23375, 95256 ####[facility] [place] [place] [address], [facility] MCV 86.0 fL Normal 80.0-100.0 [facility] Comment on above: Order Comment: No: Do not add to previou s draw Performed By: #### 3 5200, 58686, 56581, 78384 ####[facility] PLAT CNT 314 Thou/mm3 Normal 100-400 [facility] Comment on above: Order Comment: No: Do not add to previou s draw Performed By: #### 3 5200, 77705, 98388, 65708 ####[facility] WBC (Leukocytes) 12.3 Thou/mm3 High 4.0-10.0 [facility] Comment on above: Order Comment: No: Do not add to previou s draw Performed By: #### 3 5200, 08877, 20338, 59685 ####[facility] Cardiovascular Lab Reporton 05-21-2017 Cardiovascular Lab Report [facility] Patient Name: Lyndon Wall [facility] MR #: [id number] Physician: Mayco Faith,Department of M.D.Medicine Service Date: 05/20/2017Division of Birthdate: 1975Cardiology Room #: 3AB [id number] CardiovascularServic[place] [address]Phone Fax Cardiovascular Laboratory ReportFINAL IMPRESSION1. Angiographically nonobstructive [...] to the left radial artery wasobtained. A 6-Bengali Seldinger sheath was inserted without difficulty.Bilateral selective [...] be taken for further evaluation in the medical laboratory technical officer.Edited and Electronically Signed by:Mayco Faith M.D. 05/23/2017 02:56 P Mayco Faith M.D. I was present for the entire procedure. Date Dict: 05/20/2017/11:21 A/Taryn Zhou Trans: 05/21/2017 07:35 A/Thaddeus_JN:[id number]: Richard Alvarado M.D. [address], [facility] [address] Normal [facility] HEMOGLOBIN A1Con 05-21-2017 Glucose mass conc 240 mg/dL High 70-126 [facility] Comment on above: Order Comment: No: Do not add to previou s draw Performed By: #### 3 5200, 45501, 33641, 75713 ####[facility] [place] [address], [facility] Hemoglobin A1c/Hemoglobin.t otal mass fraction (Bld) 10.0 % High 4.0-6.0 [facility] Comment on above: Order Comment: No: Do not add to previou s draw Performed By: #### 3 5200, 28374, 95710, 60843 ####[facility] [place] [address], [facility] POC GLUCOSE LABon 05-21-2017 Glucose mass conc 287 mg/dL High 70-100 [facility] Comment on above: Performed By: #### 92020, 82342, 13233, 12933 ####[facility] [place] [address], [facility] Glucose mass conc 231 mg/dL High 70-100 [facility] Comment on above: Performed By: #### 31308, 65524, 16841, 94872 ####[facility] [place] [address], [facility] TROPONIN-Ion 05-21-2017 Troponin I.cardiac mass conc 0.01 ng/mL Normal 0.00-0.04 [facility] Comment on above: Order Comment: No: Do not add to previou s draw Result Comment: REFE RENCE RANGES: 0.00 - 0.04 ng/ml NORMAL 0.05 - 0.50 ng/ml INDETERMINATE > 0.50 ng/ml CONSISTENT WITH AN M.I. Performed By: #### 3 5200, 27106, 39367, 19323 ####[facility] [place] [address], [facility] BASIC METABOLIC PANELon Calcium 9.0 mg/dL Normal 8.6-10.3 [facility] Comment on above: Order Comment: No: Do not add to previou s draw Performed By: #### 3 5200, 72204, 13394, 22790 ####[facility] [place] [address], [facility] Chloride 101 mmol/L Normal 98-107 [facility] Comment on above: Order Comment: No: Do not add to previou s draw Performed By: #### 3 5200, 05729, 31041, 21521 ####[facility] [place] [address], [facility] CO2 26 mmol/L Normal 21-31 [facility] Comment on above: Order Comment: No: Do not add to previou s draw Performed By: #### 3 5200, 46110, 12742, 91328 ####[facility] [place] [address], [facility] Creatinine 0.72 mg/dL Normal 0.60-1.20 [facility] Comment on above: Order Comment: No: Do not add to previou s draw Performed By: #### 3 5200, 28729, 13349, 10808 ####[facility] [place] [address], [facility] eGFR (black) mL/min/{1.73_m2} Normal >60 [facility] Comment on above: Order Comment: No: Do not add to previou s draw Performed By: #### 3 5200, 34915, 45639, 12905 ####[facility] [place] [address], [facility] eGFR (non-black) mL/min/{1.73_m2} Normal >60 [facility] Comment on above: Order Comment: No: Do not add to previou s draw Performed By: #### 3 5200, 06156, 03537, 68865 ####[id number] [place] [address], [facility] Glucose mass conc 256 mg/dL High 70-100 [facility] Comment on above: Order Comment: No: Do not add to previou s draw Performed By: #### 3 5200, 26052, 14574, 88858 ####[facility] [place] [address], [facility] Potassium molar conc 4.1 mmol/L Normal 3.5-5.1 [facility] Comment on above: Order Comment: No: Do not add to previou s draw Performed By: #### 3 5200, 01346, 89067, 48719 ####[facility] [place] [address], [facility] Sodium 137 mmol/L Normal 136-145 [facility] Comment on above: Order Comment: No: Do not add to previou s draw Performed By: #### 3 5200, 46615, 66344, 14634 ####[facility] [place] [address], [facility] Urea nitrogen 18 mg/dL Normal 7-25 [facility] Comment on above: Order Comment: No: Do not add to previou s draw Performed By: #### 3 5200, 99712, 19516, 07179 ####[facility] [place] [address], [facility] CBC COMPLETE BLOOD COUNTon 1 Erythrocyte distribution width Auto Ratio (RBC) 14.2 % Normal 11.5-16.9 [facility] Comment on above: Order Comment: No: Do not add to previou s draw Performed By: #### 3 5200, 99458, 40747, 56846 ####[facility] [place] [address], [facility] Erythrocytes (RBC) 4.63 mill/mm3 Normal 3.50-5.50 [facility] Comment on above: Order Comment: No: Do not add to previou s draw Performed By: #### 3 5200, 59967, 98798, 89201 ####[facility] Hematocrit (HCT) 39.3 % Normal 36.0-48.0 [facility] Comment on above: Order Comment: No: Do not add to previou s draw Performed By: #### 3 5200, 79880, 45689, 59100 ####[facility] Hemoglobin mass conc (Bld) 12.9 g/dL Normal 12.0-15.0 [facility] Comment on above: Order Comment: No: Do not add to previou s draw Performed By: #### 3 5200, 16032, 11418, 09391 ####[facility] MCH 28.0 pg Normal 24.0-32.0 [facility] Comment on above: Order Comment: No: Do not add to previou s draw Performed By: #### 3 5200, 79707, 57555, 81144 ####[facility] MCHC mass conc (RBC) 32.9 g/dL Normal 32.0-36.0 [facility] Comment on above: Order Comment: No: Do not add to previou s draw Performed By: #### 3 5200, 82093, 56555, 30282 ####[facility] MCV 85.0 fL Normal 80.0-100.0 [facility] Comment on above: Order Comment: No: Do not add to previou s draw Performed By: #### 3 5200, 35931, 47780, 56074 ####[facility] [place] [address], [facility] PLAT CNT 356 Thou/mm3 Normal 100-400 [facility] Comment on above: Order Comment: No: Do not add to previou s draw Performed By: #### 3 5200, 14315, 40181, 35409 ####[facility] [place] [address], [facility] WBC (Leukocytes) 13.8 Thou/mm3 High 4.0-10.0 [facility] Comment on above: Order Comment: No: Do not add to previou s draw Performed By: #### 3 5200, 80370, 69237, 69876 ####[facility] [place] [place] [address], [facility] POC GLUCOSE LABon 05-20-2017 Glucose mass conc 278 mg/dL High 70-100 [facility] Comment on above: Performed By: #### 19098, 13118, 92603, 87026 ####[facility] [place] [address], [facility] Glucose mass conc 412 mg/dL High 70-100 [facility] Comment on above: Performed By: #### 58260, 20019, 98383, 44032 ####[facility] [place] [address], [facility] Glucose mass conc 258 mg/dL High 70-100 [facility] Comment on above: Performed By: #### 52851, 83140, 21272, 55514 ####[facility] [place] [address], [facility] Glucose mass conc 227 mg/dL High 70-100 [facility] Comment on above: Performed By: #### 99255, 58028, 96410, 05769 ####[facility] [place] [address], [facility] TROPONIN-Ion 05-20-2017 Troponin I.cardiac mass conc 0.01 ng/mL Normal 0.00-0.04 [facility] Comment on above: Order Comment: No: Do not add to previou s draw Result Comment: REFE RENCE RANGES: 0.00 - 0.04 ng/ml NORMAL 0.05 - 0.50 ng/ml INDETERMINATE > 0.50 ng/ml CONSISTENT WITH AN M.I. Performed By: #### 3 5200, 87492, 83387, 26486 ####[facility] BASIC METABOLIC PANELon 10-0 Calcium 9.0 mg/dL Normal 8.6-10.3 [facility] Comment on above: Order Comment: No: Do not add to previou s draw Performed By: #### 3 5200, 00435, 28629, 55989 ####[facility] Chloride 104 mmol/L Normal 98-107 [facility] Comment on above: Order Comment: No: Do not add to previou s draw Performed By: #### 3 5200, 59151, 34763, 44877 ####[facility] CO2 26 mmol/L Normal 21-31 [facility] Comment on above: Order Comment: No: Do not add to previou s draw Performed By: #### 3 5200, 74008, 59562, 77522 ####[facility] Creatinine 0.76 mg/dL Normal 0.60-1.20 [facility] Comment on above: Order Comment: No: Do not add to previou s draw Performed By: #### 3 5200, 14789, 29743, 31037 ####[facility] [place] [address], [facility] eGFR (black) mL/min/{1.73_m2} Normal >60 [facility] Comment on above: Order Comment: No: Do not add to previou s draw Performed By: #### 3 5200, 09383, 45986, 35505 ####[facility] [place] [address], [facility] eGFR (non-black) mL/min/{1.73_m2} Normal >60 [facility] Comment on above: Order Comment: No: Do not add to previou s draw Performed By: #### 3 5200, 48486, 63376, 97448 ####[facility] [place] [address], [facility] Glucose mass conc 246 mg/dL High 70-100 [facility] Comment on above: Order Comment: No: Do not add to previou s draw Performed By: #### 3 5200, 98589, 51069, 57278 ####[facility] [place] [address], [facility] Potassium molar conc 4.4 mmol/L Normal 3.5-5.1 [facility] Comment on above: Order Comment: No: Do not add to previou s draw Performed By: #### 3 5200, 88645, 44409, 17128 ####[facility] [place] [address], [facility] Sodium 138 mmol/L Normal 136-145 [facility] Comment on above: Order Comment: No: Do not add to previou s draw Performed By: #### 3 5200, 84206, 11918, 84813 ####[facility] [place] [address], [place] Urea nitrogen 21 mg/dL Normal 7-25 [facility] Comment on above: Order Comment: No: Do not add to previou s draw Performed By: #### 3 5200, 74868, 23587, 66574 ####[facility] [place] [address], [place] CBC COMPLETE BLOOD COUNTon 1 Erythrocyte distribution width Auto Ratio (RBC) 13.9 % Normal 11.5-16.9 [facility] Comment on above: Order Comment: No: Do not add to previou s draw Performed By: #### 3 5200, 23069, 24150, 62115 ####[facility] Erythrocytes (RBC) 4.50 mill/mm3 Normal 3.50-5.50 [facility] Comment on above: Order Comment: No: Do not add to previou s draw Performed By: #### 3 5200, 61367, 53989, 76965 ####[facility] Hematocrit (HCT) 38.3 % Normal 36.0-48.0 [facility] Comment on above: Order Comment: No: Do not add to previou s draw Performed By: #### 3 5200, 81246, 60473, 91038 ####[facility] Hemoglobin mass conc (Bld) 12.4 g/dL Normal 12.0-15.0 [facility] Comment on above: Order Comment: No: Do not add to previou s draw Performed By: #### 3 5200, 54811, 93522, 35784 ####[facility] [place] [address], [facility] MCH 27.7 pg Normal 24.0-32.0 [facility] Comment on above: Order Comment: No: Do not add to previou s draw Performed By: #### 3 5200, 23565, 66580, 73878 ####[facility] [place] [address], [facility] MCHC mass conc (RBC) 32.5 g/dL Normal 32.0-36.0 [facility] Comment on above: Order Comment: No: Do not add to previou s draw Performed By: #### 3 5200, 05247, 85557, 06916 ####[facility] [place] [address], [facility] MCV 85.2 fL Normal 80.0-100.0 [facility] Comment on above: Order Comment: No: Do not add to previou s draw Performed By: #### 3 5200, 31059, 50949, 89086 ####[facility] [place] [address], [facility] PLAT CNT 350 Thou/mm3 Normal 100-400 [facility] Comment on above: Order Comment: No: Do not add to previou s draw Performed By: #### 3 5200, 72162, 28689, 83543 ####[facility] [place] [address], [facility] WBC (Leukocytes) 13.0 Thou/mm3 High 4.0-10.0 [facility] Comment on above: Order Comment: No: Do not add to previou s draw Performed By: #### 3 5200, 68088, 74077, 98396 ####[facility] [place] [address], [facility] MAGNESIUM BLOODon 05-19-2017 Magnesium 2.1 mg/dL Normal 1.9-2.7 [facility] Comment on above: Order Comment: No: Do not add to previou s draw Performed By: #### 3 5200, 08766, 75373, 80206 ####[facility] [place] [address], [facility] POC GLUCOSE LABon 05-19-2017 Glucose mass conc 259 mg/dL High 70-100 [facility] Comment on above: Performed By: #### 14923, 87042, 49623, 07621 ####[facility] [place] [address], [facility] Glucose mass conc 289 mg/dL High 70-100 [facility] Comment on above: Performed By: #### 02951, 87957, 14186, 78853 ####[facility] [place] [address], [facility] Glucose mass conc 261 mg/dL High 70-100 [facility] Comment on above: Performed By: #### 92103, 50070, 66987, 86495 ####[facility] [place] [address], [facility] Glucose mass conc 233 mg/dL High 70-100 [facility] Comment on above: Performed By: #### 17438, 25712, 54013, 05731 ####[facility] TROPONIN-Ion 05-19-2017 Troponin I.cardiac mass conc 0.00 ng/mL Normal 0.00-0.04 [facility] Comment on above: Order Comment: No: Do not add to previou s draw Result Comment: REFE RENCE RANGES: 0.00 - 0.14 ng/ml NEGATIVE 0.15 - 0.25 ng/ml INDETERMINATE > 0.25 ng/ml INDICATIVE OF AN M.I. Performed By: #### 3 5200, 43058, 20955, 52678 ####[facility] *URINE CULTUREon 05-18-2017 *URINE CULTURE Clinical Report: (C) Specimen/Source: URINE/MIDSTREAM Collected: 05/18/2017 01:00 Status: Final Last Updated: 05/20/2017 10:07 (1) No: Do not add to previous draw ISO (Final) +Upon reincubation: +>100,000 Cfu/Ml +Uro-Genital Cristy Result changed by RADHA on 05/20/2017 10:07. The previous result was: ISO (Final) 100,000 Cfu/Ml Normal [facility] Comment on above: Order Comment: No: Do not add to previou s draw Performed By: #### 5 0608 ####[facility] APTTon 05-18-2017 aPTT 23.5 s Low 25.0-35.0 [facility] Comment on above: Order Comment: No: [...] THIS PURPOSE. Performed By: #### 5 7307, 78795 ####[facility] BASIC METABOLIC PANELon Calcium 8.6 mg/dL Normal 8.6-10.3 [facility] Comment on above: Order Comment: No: Do not add to previou s draw Performed By: #### 5 0608 ####[facility] [place] [address], [facility] Chloride 103 mmol/L Normal 98-107 [facility] Comment on above: Order Comment: No: Do not add to previou s draw Performed By: #### 5 0608 ####[facility] [place] [address], [facility] CO2 25 mmol/L Normal 21-31 [facility] Comment on above: Order Comment: No: Do not add to previou s draw Performed By: #### 5 0608 ####[facility] [place] [address], [facility] Creatinine 0.64 mg/dL Normal 0.60-1.20 [facility] Comment on above: Order Comment: No: Do not add to previou s draw Performed By: #### 5 0608 ####[facility] [place] [address], [facility] eGFR (black) mL/min/{1.73_m2} Normal >60 [facility] Comment on above: Order Comment: No: Do not add to previou s draw Performed By: #### 5 0608 ####[facility] [place] [address], [facility] eGFR (non-black) mL/min/{1.73_m2} Normal >60 [facility] Comment on above: Order Comment: No: Do not add to previou s draw Performed By: #### 5 0608 ####[facility] [place] [address], [facility] Glucose mass conc 185 mg/dL High 70-100 [facility] Comment on above: Order Comment: No: Do not add to previou s draw Performed By: #### 5 0608 ####[facility] [place] [address], [facility] Potassium molar conc 3.5 mmol/L Normal 3.5-5.1 [facility] Comment on above: Order Comment: No: Do not add to previou s draw Performed By: #### 5 0608 ####[facility] [place] [address], [facility] Sodium 141 mmol/L Normal 136-145 [facility] Comment on above: Order Comment: No: Do not add to previou s draw Performed By: #### 5 0608 ####[facility] [place] [address], [facility] Urea nitrogen 24 mg/dL Normal 7-25 [facility] Comment on above: Order Comment: No: Do not add to previou s draw Performed By: #### 5 0608 ####[facility] [place] [address], [facility] CBC COMPLETE BLOOD COUNTon Erythrocyte distribution width Auto Ratio (RBC) 14.1 % Normal 11.5-16.9 [facility] Comment on above: Order Comment: No: Do not add to previou s draw Performed By: #### 5 0608 ####[facility] Erythrocytes (RBC) 4.46 mill/mm3 Normal 3.50-5.50 [facility] Comment on above: Order Comment: No: Do not add to previou s draw Performed By: #### 5 0608 ####[facility] Hematocrit (HCT) 38.2 % Normal 36.0-48.0 [facility] Comment on above: Order Comment: No: Do not add to previou s draw Performed By: #### 5 0608 ####[facility] Hemoglobin mass conc (Bld) 12.4 g/dL Normal 12.0-15.0 [facility] Comment on above: Order Comment: No: Do not add to previou s draw Performed By: #### 5 0608 ####[facility] MCH 27.9 pg Normal 24.0-32.0 [facility] Comment on above: Order Comment: No: Do not add to previou s draw Performed By: #### 5 0608 ####[facility] MCHC mass conc (RBC) 32.5 g/dL Normal 32.0-36.0 [facility] Comment on above: Order Comment: No: Do not add to previou s draw Performed By: #### 5 0608 ####[facility] MCV 85.8 fL Normal 80.0-100.0 [facility] Comment on above: Order Comment: No: Do not add to previou s draw Performed By: #### 5 0608 ####[facility] [facility] [place] [address], [facility] PLAT CNT 386 Thou/mm3 Normal 100-400 [facility] Comment on above: Order Comment: No: Do not add to previou s draw Performed By: #### 5 0608 ####[facility] [facility].[address] WBC (Leukocytes) 13.5 Thou/mm3 High 4.0-10.0 [facility] Comment on above: Order Comment: No: Do not add to previou s draw Performed By: #### 5 0608 ####[facility] [facility].[address] LIPID PROFILEon 05-18-2017 Cholesterol 116 mg/dL Low 120-200 [facility] Comment on above: Order Comment: No: Do not add to previou s draw Result Comment: CHOL ESTEROL REFERENCE RANGE:20 YEARS AND OLDER CARDIOVASCULAR RISKLess than 200 mg/dl Low Eirm681 to 239 mg/dl Borderline Iawu697 mg/dl and greater High Risk Performed By: #### 5 0608 ####[facility] Cholesterol to HDL Ratio 4.6 {ratio} High .0-4.5 [facility] Comment on above: Order Comment: No: Do not add to previou s draw Performed By: #### 5 0608 ####[facility] [facility].[address] HDL Cholesterol 25 mg/dL Normal 23-92 [facility] Comment on above: Order Comment: No: Do not add to previou s draw Result Comment: Slig ht variation in normal range could be due to gender and/or age.HDL CHOLESTEROL REFERENCE RANGE:20 years and older Cardiovascular Risk> or =60 mg/dL [id number] TO 59 mg/dL Low Risk<40 mg/dL High Risk Performed By: #### 5 0608 ####[facility], [place] [address] [place] [address] LDL Cholesterol 40 mg/dL Normal 0-130 [facility] Comment on above: Order Comment: No: Do not add to previou s draw Result Comment: LDL IS A CALCULATIONLDL IS ONLY VALID IF THE TRIG IS LESS THAN 400. Performed By: #### 5 0608 ####[facility] [facility].[address] NON-HDL CHOLESTEROL 91 mg/dL Normal [facility] Comment on above: Order Comment: No: Do not add to previou s draw Performed By: #### 5 0608 ####[facility]3000 [facility] Triglyceride 255 mg/dL High 40-149 [facility] Comment on above: Order Comment: No: Do not add to previou s draw Result Comment: TRIG LYCERIDE REFERENCE RANGE:20 YEARS AND OLDER CARDIOVASCULAR RISKLESS THAN 150 mg/dl LOW ONKT774 TO 199 mg/dl BORDERLINE [id number] mg/dl AND GREATER HIGH RISK Performed By: #### 5 0608 ####[facility] [facility].[address] VLDL CHOL 51 mg/dL High 0-40 [facility] Comment on above: Order Comment: No: Do not add to previou s draw Performed By: #### 5 0608 ####[facility] [place] [address], [facility] MAGNESIUM BLOODon 05-18-2017 Magnesium 1.9 mg/dL Normal 1.9-2.7 [facility] Comment on above: Order Comment: No: Do not add to previou s draw Performed By: #### 5 0608 ####[facility] [place] [address], [facility] METANEPHRINES URINE [id number] n 05-18-2017 ARUP TIME Random Normal [facility] Comment on above: Order Comment: No: Do not add to previou s draw Creatinine 84 mg/dL Normal [facility] Comment on above: Order Comment: No: Do not add to previou s draw Creatinine Not Applicable Normal 700-1600 [facility] Comment on above: Order Comment: No: Do not add to previou s draw Result Comment: Perf ormed by [employer],[address] [facility] [place] [address] prc.menuvox, Matthew Ortega MD - Lab. Director METANEPHRINE INTERPRETATION See Note Normal [facility] Comment on above: Order Comment: No: [...] gender-specificreference intervals for this test in the [facility] LaboratoryTest Directory (menuvox).See Compliance statement B: [email or web address] METANEPHRINE PER VOLUME 86 ug/L Normal [facility] Comment on above: Order Comment: No: Do not add to previou s draw METANEPHRINE UT Not Applicable Normal 39-143 [facility] Comment on above: Order Comment: No: Do not add to previou s draw METANEPHRINE/FRIT MIXER RATIO 102 ug/g FRIT MIXER Normal 0-300 [facility] Comment on above: Order Comment: No: Do not add to previou s draw NORMETANEPHRINE PER VOLUME 404 ug/L Normal [facility] Comment on above: Order Comment: No: Do not add to previou s draw NORMETANEPHRINE UT Not Applicable Normal 109-393 [facility] Comment on above: Order Comment: No: Do not add to previou s draw NORMETANEPHRINE/ FRIT MIXER RATIO 481 ug/g FRIT MIXER High 0-400 [facility] Comment on above: Order Comment: No: Do not add to previou s draw VOLUME ml Random Normal [facility] Comment on above: Order Comment: No: Do not add to previou s draw POC GLUCOSE LABon 05-18-2017 Glucose mass conc 238 mg/dL High 70-100 [facility] Comment on above: Performed By: #### 98992, 79746, 10865, 15854 ####[facility] Glucose mass conc 225 mg/dL High 70-100 [facility] Comment on above: Performed By: #### 24173 ####[facility] [place] [address], [facility] Glucose mass conc 202 mg/dL High 70-100 [facility] Comment on above: Performed By: #### 06003 ####[address] PORTABLE CHEST 1 VIEWon PORTABLE CHEST 1 VIEW [facility] Flvnsdqse[address] [place] [id number] ========Patient Name: LYNDON WALL : 1975Sex: FAge: Race: NAMRN: [id number]. Location: [id number] Status: IVisit #: [id number] Date: 05/17/2017 11:00:00 PMCompleted Date: 05/17/2017 11:19 PMRequesting Provider: ADRIANA OWEN Attending Provider: MAXIMILIAN GALAN Report Copy To: Signs & Symptoms: Chest PainHistory: Patient history not availableComments: R/O CHFExam: PORTABLE CHEST 1 VIEWAccession #: [id number] PORTABLE CHEST 1 VIEW 05/17/2017 11:19 PM [...] findings. Electronically signed by:Jay Fulton. Transcribed by: [email or web address], User Resident: ANITA GARCIAElectronically Signed by: JAY FULTON @ 05/18/2017 08:27 AMI personally read this/these film(s) with this resident Normal [facility] Comment on above: Order Comment: No: Do not add to previou s draw PROTHROMBIN TIMEon 7 INR Coag RelTime (PPP) 1.04 {INR} Normal 0.91-1.16 [facility] Comment on above: Order Comment: No: [...] OF ACTION, CLINICALEFFECTIVENESS, AND OPTIMAL THERAPEUTIC RANGE. [id number];108:231S-246S. Performed By: #### 5 7307, 86861 ####[facility] [facility].[address] Prothrombin time (PT) Coag time (PPP) 13.6 s Normal 12.3-14.8 [facility] Comment on above: Order Comment: No: Do not add to previou s draw Result Comment: ALL RESULTS MUST BE INTERPRETED WITH RESPECT TO BLOOD DRAWING ARTIFACTOR DILUTION ERROR OF ANTICOAGULANT AT THE TIME OF SAMPLING. Performed By: #### 5 7307, 00430 ####[facility] [facility].[address] TROPONIN-Ion 05-18-2017 Troponin I.cardiac mass conc 0.00 ng/mL Normal 0.00-0.04 [facility] Comment on above: Order Comment: No: Do not add to previou s draw Result Comment: REFE RENCE RANGES: 0.00 - 0.14 ng/ml NEGATIVE 0.15 - 0.25 ng/ml INDETERMINATE > 0.25 ng/ml INDICATIVE OF AN M.I. Performed By: #### 5 0608 ####[facility] [place] [address], [facility] TSHon 05-18-2017 Thyroid stimulating hormone (TSH) 3.56 MICRO-IU/ML Normal 0.34-5.60 [facility] Comment on above: Performed By: #### 68365 ####[facility]3000 [facility] [place] [address], [facility] UA,MICROSCOPIC REQUIREDon Bilirubin (total) Negative Normal NEGATIVE [facility] Comment on above: Order Comment: No: Do not add to previou s draw Performed By: #### 9 0150 ####[facility] [place] [address], [facility] BLOOD Negative Normal NEGATIVE [facility] Comment on above: Order Comment: No: Do not add to previou s draw Performed By: #### 9 0150 ####[facility] [place] [address], [facility] EPIS MANY Abnormal FEW [facility] Comment on above: Order Comment: No: Do not add to previou s draw Performed By: #### 9 0150 ####[facility] [place] [address], [facility] Erythrocytes (RBC) 0-2 Abnormal 0-0 [facility] Comment on above: Order Comment: No: Do not add to previou s draw Performed By: #### 9 0150 ####[facility] [place] [address], [facility] Glucose mass conc 50 mg/dL Abnormal NEGATIVE [facility] Comment on above: Order Comment: No: Do not add to previou s draw Performed By: #### 9 0150 ####[facility] [place] [address], [facility] KETONE Negative Normal NEGATIVE [facility] Comment on above: Order Comment: No: Do not add to previou s draw Performed By: #### 9 0150 ####[facility] [place] [address], [facility] LEUK RASHMI Negative Normal NEGATIVE [facility] Comment on above: Order Comment: No: Do not add to previou s draw Performed By: #### 9 0150 ####[facility] [place] [address], [facility] MUCUS THREADS OCC Abnormal NONE SEEN [facility] Comment on above: Order Comment: No: Do not add to previou s draw Performed By: #### 9 0150 ####[facility] [place] [address], [facility] pH of blood 5.0 [pH] Normal 5.0-8.0 [facility] Comment on above: Order Comment: No: Do not add to previou s draw Performed By: #### 9 0150 ####[facility] [place] [address], [facility] Protein Negative Normal NEGATIVE [facility] Comment on above: Order Comment: No: Do not add to previou s draw Performed By: #### 9 0150 ####[facility] [place] [address], [facility] SPEC GRAV 1.020 Normal 1.015-1.02 0 [facility] Comment on above: Order Comment: No: Do not add to previou s draw Performed By: #### 9 0150 ####[facility] [place] [address], [facility] Urine, appearance SL CLOUDY Abnormal CLEAR [facility] Comment on above: Order Comment: No: Do not add to previou s draw Performed By: #### 9 0150 ####[facility] [place] [address], [facility] Urine, bacteria in sediment OCC Abnormal NONE SEEN [facility] Comment on above: Order Comment: No: Do not add to previou s draw Performed By: #### 9 0150 ####[facility] [place] [address], [facility] Urine, color YELLOW Normal YELLOW [facility] Comment on above: Order Comment: No: Do not add to previou s draw Performed By: #### 9 0150 ####[facility] [place] [address], [facility] Urine, nitrite presence Negative Normal NEGATIVE [facility] Comment on above: Order Comment: No: Do not add to previou s draw Performed By: #### 9 0150 ####[facility] [place] [address], [facility] WBC UA 3-5 Abnormal 0-0 [facility] Comment on above: Order Comment: No: Do not add to previou s draw Performed By: #### 9 0150 ####[facility] [place] [address], [facility] BASIC METABOLIC PANELon 10-0 -2016 Calcium 9.0 mg/dL Normal 8.6-10.3 [facility] Comment on above: Order Comment: No: Do not add to previou s draw Performed By: #### 3 5200, 74570, 20812, 66747 ####[facility] [place] [address], [facility] Chloride 105 mmol/L Normal 98-107 [facility] Comment on above: Order Comment: No: Do not add to previou s draw Performed By: #### 3 5200, 40269, 48184, 66009 ####[facility] [place] [address], [facility] CO2 23 mmol/L Normal 21-31 [facility] Comment on above: Order Comment: No: Do not add to previou s draw Performed By: #### 3 5200, 15636, 03001, 97430 ####[facility] [place] [address], [facility] Creatinine 0.74 mg/dL Normal 0.60-1.20 [facility] Comment on above: Order Comment: No: Do not add to previou s draw Performed By: #### 3 5200, 07739, 84536, 88414 ####[facility] eGFR (black) mL/min/{1.73_m2} Normal >60 [facility] Comment on above: Order Comment: No: Do not add to previou s draw Performed By: #### 3 5200, 48636, 71295, 45498 ####[facility] eGFR (non-black) mL/min/{1.73_m2} Normal >60 [facility] Comment on above: Order Comment: No: Do not add to previou s draw Performed By: #### 3 5200, 99069, 80192, 36556 ####[facility] [place] [address], [facility] Glucose mass conc 218 mg/dL High 70-100 [facility] Comment on above: Order Comment: No: Do not add to previou s draw Performed By: #### 3 5200, 56145, 87496, 73858 ####[facility] [place] [address], [facility] Potassium molar conc 3.5 mmol/L Normal 3.5-5.1 [facility] Comment on above: Order Comment: No: Do not add to previou s draw Performed By: #### 3 5200, 69555, 70650, 59341 ####[facility] Sodium 138 mmol/L Normal 136-145 [facility] Comment on above: Order Comment: No: Do not add to previou s draw Performed By: #### 3 5200, 77485, 23547, 74098 ####[facility] Urea nitrogen 29 mg/dL High 7-25 [facility] Comment on above: Order Comment: No: Do not add to previou s draw Performed By: #### 3 5200, 62616, 89122, 44150 ####[facility] CBC COMPLETE BLOOD COUNTon Erythrocyte distribution width Auto Ratio (RBC) 14.5 % Normal 11.5-16.9 [facility] Comment on above: Order Comment: No: Do not add to previou s draw Performed By: #### 5 0608 ####[facility]3000 [facility].[address] Erythrocytes (RBC) 4.54 mill/mm3 Normal 3.50-5.50 [facility] Comment on above: Order Comment: No: Do not add to previou s draw Performed By: #### 5 0608 ####[facility] [place] [address], [facility] Hematocrit (HCT) 39.3 % Normal 36.0-48.0 [facility] Comment on above: Order Comment: No: Do not add to previou s draw Performed By: #### 5 0608 ####[facility] [place] [address], [facility] Hemoglobin mass conc (Bld) 12.6 g/dL Normal 12.0-15.0 [facility] Comment on above: Order Comment: No: Do not add to previou s draw Performed By: #### 5 0608 ####[facility] MCH 27.8 pg Normal 24.0-32.0 [facility] Comment on above: Order Comment: No: Do not add to previou s draw Performed By: #### 5 0608 ####[facility] MCHC mass conc (RBC) 32.1 g/dL Normal 32.0-36.0 [facility] Comment on above: Order Comment: No: Do not add to previou s draw Performed By: #### 5 0608 ####[facility] MCV 86.7 fL Normal 80.0-100.0 [facility] Comment on above: Order Comment: No: Do not add to previou s draw Performed By: #### 5 0608 ####[facility] [facility].[address] PLAT CNT 419 Thou/mm3 High 100-400 [facility] Comment on above: Order Comment: No: Do not add to previou s draw Performed By: #### 5 0608 ####[facility] [facility].[address] WBC (Leukocytes) 17.8 Thou/mm3 High 4.0-10.0 [facility] Comment on above: Order Comment: No: Do not add to previou s draw Performed By: #### 5 0608 ####[facility] [facility].[address] CPK-MB PROFILEon 05-17-2017 CKMB 1.5 ng/mL Normal 0.0-5.0 [facility] Comment on above: Result Comment: IF TOTAL CK <200 U/L AND : 1. CKMB IS 5-10 NG/ML----BORDERLINE 2. CKMB IS >10 NG/ML----INDICATIVE OF ID OR IF TOTAL CK >200 U/L AND CKMB INDEX >1.9----INDICATIVE OF ID Performed By: #### 3 5200, 39461, 18559, 51451 ####[facility] CKMB 10.0 ng/mL Critically high 0.0-1.9 [facility] Comment on above: Performed By: #### 24282, 03214, 37514, 06119 ####[facility]3000 [facility].[address] Creatine kinase (CK) 15 U/L Low 30-223 [facility] Comment on above: Performed By: #### 47834, 70664, 41447, 00329 ####[facility]3000 [facility].[address] MAGNESIUM BLOODon 05-17-2017 Magnesium 2.0 mg/dL Normal 1.9-2.7 [facility] Comment on above: Order Comment: No: Do not add to previou s draw Performed By: #### 3 5200, 74446, 80815, 38151 ####[facility]3000 [facility].[address] POC GLUCOSE LABon 05-17-2017 Glucose mass conc 214 mg/dL High 70-100 [facility] Comment on above: Performed By: #### 53792 ####[facility] [facility] [place] [address], [facility] TROPONIN-Ion 05-17-2017 Troponin I.cardiac mass conc 0.01 ng/mL Normal 0.00-0.04 [facility] Comment on above: Order Comment: No: Do not add to previou s draw Result Comment: REFE RENCE RANGES: 0.00 - 0.04 ng/ml NORMAL 0.05 - 0.50 ng/ml INDETERMINATE > 0.50 ng/ml CONSISTENT WITH AN M.I. Performed By: #### 3 5200, 32767, 45261, 70274 ####[facility] [place] [address], [facility] Encounters Encounter Date Encounter Type Care Provider Facility Start: 07-21-2024 End: 07-21-2024 ambulatory Paramjit SMITH Facility:[facility] Start: 07-21-2024 End: 07-21-2024 Patient encounter procedure Paramjit Meri SMITH [facility] Start: 01-09-[address] RICHARD ALVARADO . Facili ty:[facility] Start: 05-23-2022 End: 05-23-2022 ambulatory GASTON ARELLANO Facility: Start: 04-07-[address] RICHARD ALVARADO . Facili ty:[facility] Start: 04-03-2022 Encounter for genera l adult medical examination without abnormal findings DR RICHARD ALVARADO . [facility] Start: 04-02-2022 End: 04-02-[address] RICHARD ALVARADO . Facility: Start: 04-02-2022 End: 04-02-2022 Encounter for general adult medical examination without abnormal findings DR RICHARD ALVARADO . Facility: Start: 03-31-2022 End: 04-01-[address] RICHARD ALVARADO . Facility: Start: 05-17-2017 End: 05-21-2017 Ambulatory MAXIMILIAN GALAN Facility:[facility] Start: 04-17-2017 End: 04-18-2017 Ambulatory DEFAULT PHYSICIAN Facility:[facility] Procedures Date Procedure Procedure Detail Performing Clinician [...] SARS-CoV-2 (COVID-19 ) mRNA-1273 vaccine Paramjit NILL [facility] Comment on above: Result Comment: 2022: TPV23 10-05-2020 SARS-CoV-2 (COVID-19 ) mRNA-1273 vaccine Paramjit BRUMFIELDL [facility] Comment on above: Result Comment: 2022: TPV23 Payers Date Payer Category Payer Unknown [id number] 2.16.84 [id number] 1975 Unknown [id number] 2.16.84 [id number] 1975 Unknown [id number] 2.16.84 [id number] 1975 Unknown [id number] 2.16.84 [id number] 1975 Unknown [id number] 2.16.84 [id number] 1975 Unknown [id number] 2.16.8 [id number] 1961 Self-pay 1961 Unknown [id number] 1961 Unknown [id number] 1961 Unknown [id number] Unknown Social History Date Type Detail Facility Tobacco smoking status No Smoking Status Entered [facility] Sex Assigned At Female [facility] Evaluation + Plan note Note Date & Type Note Facility Evaluation + Plan note No data available for this section [facility] [place] [facility] Discharge instructions Note Date & Type Note Facility Hospital Discharge instructions No data available for this section [facility] Progress note Note Date & Type Note Facility Progress note No data available for this section [facility] Summary Purpose Family History No Family History Records FoundNo Family History Records FoundNo Family History Records Found No data available for this section Advance Directives No Advanced Directives Records FoundNo Advanced Directives Records FoundNo Advanced Directives Records Found Additional Source Comments INFORMATION SOURCE (unrecogn ized section and content) DATE CREATED AUTHOR 02/07/2018 [facility] DATE CREATED AUTHOR AUTHOR'S ORGANIZ ATION 01/18/2023 [facility] DATE CREATED AUTHOR AUTHOR'S ORGANIZ ATION 07/24/2024 [facility] Patient Care team informatio n (unrecognized section and content) Personnel Name: Richard Alvarado MD Address: Address: [address] [place] [address] FOR RECORDS PERTAINING TO PATIENTS WHO ARE [...] BE BASED ON THE PRIMARY CLINICAL RECORDS. [facility]. provides no warranty or guarantee of the accuracy or completeness of information in this document.
[2025-05-21 07:17] LABS: Hematocrit 35.4 % (36.0-48.0); Hemoglobin 10.5 g/dL (12.0-16.0); Immature Granulocytes Abs Auto 0.01 10^3/uL (0.00-0.03); Immature Granulocytes Pct Auto 0.1 % (0.0-0.5); Lymphocytes Absolute Auto 2.1 10^3/uL (1.2-3.8); Mean Corpuscular HGB Conc 29.7 g/dL (29.9-35.2); Mean Corpuscular Hemoglobin 22.5 pg (26.7-34.0); Mean Corpuscular Volume 75.8 fL (81.0-99.0); Platelet Count 398 10^3/uL (150-450); Red Blood Count 4.67 10^6/uL (4.20-5.40); White Blood Count 7.4 10^3/uL (4.0-11.0)
[2025-05-21 08:57] LABS: Iron 32.0 ug/dL (50.0-170.0)
[2025-05-21 09:02] LABS: Alanine Aminotransferase 31 U/L (14-59); Albumin Globulin Ratio 0.9; Albumin Level 3.8 g/dL (3.4-5.0); Alkaline Phosphatase 145 U/L (46-116); Anion Gap 13.2; Aspartate Amino Transferase 24 U/L (15-37); Blood Urea Nitrogen 13.0 mg/dL (7.0-18.0); Calcium 8.9 mg/dL (8.5-10.1); Carbon Dioxide 28.6 mmol/L (21.0-32.0); Chloride 105 mmol/L (98-107); Cholesterol 169 mg/dL (<=200); Estimated GFR (African America >60 (>=60 mL/min/1.73m^2); Estimated GFR (Non-African Ame >60 (>=60 mL/min/1.73m^2); Free T3 2.58 pg/mL (2.18-3.98); Globulin 4.2 g/dL; Glucose 98 mg/dL (74-106); HDL Cholesterol 68 mg/dL (40-60); Magnesium 2.3 mg/dL (1.8-2.4); Potassium 3.8 mmol/L (3.5-5.1); Sodium 143 mmol/L (136-145); Thyroid Stimulating Hormone 3.012 uIU/mL (0.358-3.740); Total Protein 8.0 g/dL (6.4-8.2); Triglycerides 71 mg/dL (<=150); VLDL CHOLESTEROL 14.2 mg/dL
[2025-05-21 14:40] LABS: Ferritin 5.0 ng/mL (8.0-252.0)
[2025-05-22 07:08] LABS: Vitamin B12 864 pg/mL (232-1245)
== END 2025-05-21 06:55 | disposition home or self-care (01) ==
LOC: LAB 06:58
PROVIDERS: PCP Family Medicine; Visit Provider Family Medicine
DX: Z12.11 Encounter for screening for malignant neoplasm of colon (principal); Z01.89 Encounter for other specified special examinations; Z98.890 Other specified postprocedural states
CPT/HCPCS: 36415; 80053; 80061; 82306; 82607; 82728; 82746; 83036; 83540; 83735; 84436; 84443; 84481; 85025

== ENCOUNTER 2025-07-16 07:53 | Outpatient (OUT) | payer BC, SELFPAY ==
--- OUTSIDE RECORDS SUMMARY | 2025-07-16 07:58 | XMS_ITS | Clinical Summary ---
Author Organization [email or web address] [facility] tem Address [id number] [address] [place] [address] Care Team Providers Care Financial Reporting Specialist Name Role Phone Shane Alvarado MD Primary Care Provider [phone] Allergies No known active allergies Medications No known medications Social History Tobacco UseTypesPacks/DayYears UsedDateSmoking Tobacco: NeverSmokeless Tobacco: NeverAlcohol UseStandard Drinks/WeekCommentsNot Currently0 (1 standard drink = 0.6 oz pure alcohol)ChildcareAnswerDate EyuofrcdIdmwtzwecZgwgerx03/12/2019 EmploymentAnswerDate YzjmutqrBpooliifcsVynoulh37/12/2019Purpose - LifeAnswerDate RecordedPurpose and direction in tmmsAtinzep28/11/2021CommentsNoSex and Gender InformationValueDate RecordedSex Assigned at BirthNot on fileLegal Sex Ytikco3003/17/2015 11:54 AM EDTGender IdentityNot on fileSexual OrientationNot on file Last Filed Vital Signs Vital SignReadingTime TakenCommentsBlood Sgfdvmot412/8808 8:31 PM EDT Itsyh5194 8:31 PM ERWOqpdzjebbda04.1 ??C (98.7 ??F)03/21/2022 5:09 PM EDTRespiratory Ofro789603/21/2022 8:31 PM EDTOxygen Ahtposhqkm38%03/21/2022 8:31 PM EDTInhaled Oxygen Concentration--Zfomxt02.5 kg (215 lb)03/21/2022 5:09 PM EDT Mhuwlt369.3 cm (5' 11 )03/21/2022 5:09 PM EDTBody Mass Index29.9903/21/2022 5:09 PM EDT Plan of Treatment Health MaintenanceDue DateLast DoneCommentsDepression Myfpixtwo66/07/1985Tobacco Suvwougkd22/07/1985Adult BMI Xnpuxutrb72/07/1991DTaP,Tdap and Td Vaccines (1 - Tdap)1992Pap Smear1994Zoster (Shingles) Vaccine (1 of 2)2023 COVID-19 Vaccine (3 - 2024- season)503/, 10/05/2020Influenza Nlcjrjx5204/12/2025 Medical Devices Not on file Insurance Care Teams Team MemberRelationshipSpecialtyStart DateEnd Shane Alvarado MD [facility]05/15/17
--- OUTSIDE RECORDS SUMMARY | 2025-07-16 07:58 | XMS_ITS | CCD ---
Author Organization [facility] Care Team Providers Care [employer] Name Role Phone PHYSICIAN, DEFAULT Unavailable Unavailable PHYSICIAN, DEFAULT Unavailable Unavailable MAXIMILIAN GALAN Unavailable Unavailable RICHARD ALVARADO Unavailable Unavailable RICHARD ALVARADO Unavailable Unavailable NV Unavailable Unavailable BURKET, MAYCO Unavailable Unavailable KARIM, DANG Unavailable Unavailable HOY ., DR RAMOS Admitting Unavailable HOY ., DR RAMOS Attending Unavailable [facility] Primary Care Unavailable HOY ., DR RAMOS Consulting Unavailable [facility] Primary Care Unavailable KARASIK ., DR [...] Unavailable HOY ., DR RAMOS Attending Unavailable Richard Alvarado Primary Care Physician Richard Alvarado Referring Unavailable NILL, Paramjit R Attending Unavailable HoRichard mcallister Referring Unavailable NILL, Paramjit R Attending Unavailable Allergies Allergy ClassificationReported Allergen(s)Allergy TypeDate of OnsetReaction(s) Facility (1 source)NKADrug allergy (disorder)27-20-8922Uag [facility] Repository (1 source)No Known Allergies; Translations: [No Known Allergies]Propensity to adverse reactions (disorder)The [facility] Rep[facility] (1 source)diazePAMDrug AllergyThe [facility] (1 source)NSAIDsDrug allergy (disorder)[facility] (1 source)No Known Medication Allergies; Translations: [No Known Medication Allergies]Propensity to adverse reactions (disorder)[facility] Repository Medications Current Medications MedicationDrug Class(es)DatesSig (Normalized)Sig (Original)estrogens, conjugated (fdc) 0.625 mg/ml vaginal cream (1 source)EstrogenStart: 34-07-1638Qtconpoe Vaginal 0.625 mg/g cream with applicator 1 gram, Vaginal, qPM, Refill(s) 0 Start Date: 07/01/24 Status: Ordered Problems Active Problems Problem ClassificationProblemDateDocumented DateEpisodic/ChronicConditions associated with dizziness or vertigo (4 sources)Dizziness and giddiness; Translations: [DIZZINESS AND GIDDINESS] Onset: 78-89-1315SsikvgwtEkbsvzpu atherosclerosis and other heart disease (2 sources)Unstable angina; Translations: [UNSTABLE ANGINA]Onset: 05-17-2017 ChronicDiabetes mellitus without complication (2 sources)Type 2 diabetes mellitus without complications; Translations: [Diabetes mellitus]Onset: 804807-46-6379HkgkrzlJpjuomfhh hypertension (2 sources)Essential (primary) hypertension; Translations: [Essential hypertension]Onset: 785492-82-6522AdkfqnuLlzkpdyb; including migraine (1 source)Tension-type qlwjgsdu35-30-5519NnpxxxdFmtyadfqfc disorders (1 source)Menopausal and female climacteric states; Translations: [MENOPAUSAL FE CLIMACTERIC STATES]Onset: 04-40-3439NsumhdaSqdluobpfsv deficiencies (1 source)Vitamin B ocomhvacqs84-52-5225BxhozkpxUpvtr endocrine disorders (1 source)Polycystic ovarian syndrome; Translations: [POLYCYSTIC OVARIAN SYNDROME]Onset: 56-87-4824IrcrfwhFqemg endocrine disorders (1 source)Disorder of pituitary -20-8845JwzmvxoOzctc endocrine disorders (1 source)Polycystic ovary ifkskpcv82-94-8342JtikjlcDxtbc gastrointestinal disorders (1 source)History of dpjuminpvlx46-69-9740RmxvwlmqMizxb nutritional; endocrine; and metabolic disorders (1 source)Ynqeuugtvw65-53-7566UnzvnzwbJoqrx skin disorders (1 source)Trichilemmal slzu44-57-2118NkpvsajaFixeobwq codes; unclassified (1 source)Kflgyaig26-86-4569LflcrqjjUycwsrykbnal (1 source)Obstructive sleep apnea (adult) (pediatric); Translations: [OBSTRUCTIVE SLEEP APNEA (ADULT) (PEDIATRIC)]Onset: 55-78-9206Wubxify Unclassified (1 source)snf (current) use of oral hypoglycemic drugs; Translations: [DRYWALL SPRAYER (CURRENT) USE OF ORAL HYPOGLYCEMIC DRUGS]Onset: 05-17-2017 Unclassified (2 sources)Unknown / UNK(Unknown)Onset: 05-17-2017 Past or Other Problems Problem ClassificationProblemDateDocumented DateEpisodic/ChronicImmunizations and screening for infectious disease (1 source)Encounter for screening for human papillomavirus (HPV); Translations: [ENC SCREENING HUMAN PAPILLOMAVIRUS]Onset: 61-87-4065UbnlmgtoBhgoflxpfzb chest pain (1 source)Other chest pain; Translations: [OTHER CHEST PAIN]Onset: 05-17-2017 EpisodicUnclassified (5 sources)Abnormal result of other cardiovascular function study; Translations: [Encounter for screening for malignant neoplasm of cervix]Onset: 05-17-2017 Episodic Results Test NameValueInterpretationReference RangeFacilityAmbulatory Visit Summaryon 06-41-3479Apxkxccmtv Visit SummaryAmbulatory Visit Summary LYNDON CASTRO Jovita :1975 Visit Date:06/23/2025 Ambulatory Visit Instructions Your Diagnosis Iron deficiency anemia History of gastric bypass Your Care Team Attending Physician - Paramjit SMITH MD Primary Care Physician - Richard Alvarado MD Referring Physician - Richard Alvarado MD This Is Your Medications List Contact prescribing physician if questions or concerns omeprazole (omeprazole 20 mg Cap-DR) phentermine (Adipex-P 37.5 mg Tab) Procedures Performed Pilar cyst (10/2018), Pilar cyst (06/2015), Biopsy of breast, Cardiac catheterization, Cholecystectomy, EGD - Esophagogastroduodenoscopy, Gastric bypass, Ligation of fallopian tube, Suspension of bladder, VH - Vaginal hysterectomy. Discharge Vitals Heart Rate (Peripheral) 76 Respiratory Rate 16 Blood Pressure 138/90 Height 180.3 cm Height 71 in Weight 97.1 kg Weight 214.069 lb BMI 29.87 Medications What How Much When Instructions Unchanged omeprazole (omeprazole 20 mg Cap-DR) 1 Capsules By Mouth 2 times a day as needed for gerdContact prescribing physician if questions or concerns Unchanged phentermine (Adipex-P 37.5 mg Tab) 1 Tablets By Mouth Every day Contact prescribing physician if questions or concerns Allergies No Known Allergies No Known Medication Allergies Problems Ongoing - Any problem that you are currently receiving treatment for. BMI 29.0-29.9,adult Diabetes Disorder of pituitary gland Essential hypertension History of esophagitis History of gastric bypass Insomnia Iron deficiency anemia Overweight Polycystic ovary syndrome Tension-type headache Vitamin B deficiency Patient Survey You may receive a survey via text or e-mail asking about your office visit. Please share your experience with us by completing your survey. We appreciate your feedback and thank you for choosing us for your care. Patient Portal You may access all of your results and other medical record information on our secure patient portal. If you are not signed up for this yet, please contact [employer] at [phone] to get signed up today. Language Information Language assistance services are available as needed. [facility] ACOG PANEL 2: 30 to 65on 05-30-2022..NormalThe [facility] HospitalComment on above:Result Comment: Performed at: WBPerformed By: #### [id number] #### [facility] [address] [place] [address] Dr. Williams Fernandez Gdln ACOG Welgrph82-89CrippiLqbMercy Health St. Vincent Medical CenterComment on above:Performed By: #### [id number] #### [facility] [address] [address] [address] Williams RdzDIAGNOSIS:CommentAvita Health System Ontario HospitalCommclaren caro region on above: Result Comment: NEGATIVE FOR INTRAEPITHELIAL LESION OR MALIGNANCY. Performed at: WBPerformed By: #### [id number] #### [facility] [address] [place] [address] Dr. Williams RdzHPV AptimaNegativeNormalNegativeSouthview Medical CenterCommclaren caro region on above:Result Comment: This nucleic acid amplification test detects fourteen high-risk HPV types (16,18,31,33,35,39,45,51,52,56,58,59,66,68) without differentiation. Performed at: =GPerformed By: #### [id number] #### [facility] [address] [place] [address] Dr. Williams RdzMethodology:CommentMetroHealth Main Campus Medical Center on above: Result Comment: This liquid based ThinPrep(R) pap test was screened with the use of an image guided system. Performed at: WBPerformed By: #### [id number] #### [facility] [address] [place] [address] Dr. Williams RdzNote:CommentNoCleveland Clinic Foundation on above:Result Comment: The Pap smear is a screening test designed to aid in the detection of premalignant and malignant conditions of the uterine cervix. It is not a diagnostic procedure and should not be used as the sole means of detecting cervical cancer. Both false-positive and false-negative reports do occur. . Performed at: WBPerformed By: #### [id number] #### [facility] [address] [place] [address] Dr. Williams RdzPerformed by:CommentNoCleveland Clinic Foundation on above: Result Comment: Heather Michael, Developer Architect (ASCP) Performed at: WBPerformed By: #### [id number] #### [facility] [address] [place] [address] Dr. Williams RzdSpecluciana adequacy:CommentMetroHealth Main Campus Medical Center on above:Result Comment: Satisfactory for evaluation. Endocervical and/or squamous metaplastic cells (endocervical component) are present. Performed at: WBPerformed By: #### [id number] #### [facility] [address] [place] [address] Dr. Kramer ChangESTROGENon 66-70-9490Jisptdpru, Wtmjs442 pg/mLNMemorial Hospital on above:Result Comment: Prepubertal < 40 Female Cycle: 1-10 Days 16 - 328 11-20 Days 34 - 501 21-30 Days 48 - 350 Post-Menopausal 40 - 244Performed By: #### ESTROG #### [facility] [address] [place] [address] Dr. Williams RdzVITAMIN B1 (THIAMINE)on 78-80-6223Eak. B1, Whole Yrqll528.1 nmol/JOcetcf42.5-200.0The [facility] HospitalComment on above:Performed By: #### VITB1T #### [facility] [address] [place] [address] Dr. Williams JamesHolandon 09-45-4498OJC20.0 mIU/mLNormalThe [facility] HospitalComment on above:Result Comment: Adult Female: Follicular phase 3.5 - 12.5 Ovulation phase 4.7 - 21.5 Luteal phase 1.7 - 7.7 Postmenopausal 25.8 - 134.8Performed By: #### VITB1T #### [facility] [address] [place] [address] Dr. Williams RdzINSULINon 34-25-3757Ygjdjzz9.9 uIU/mLNormal2.6-24.9The [facility] HospitalComment on above:Performed By: #### VITB1T #### [facility] [address] [place] [address] Dr. Williams RdzOCC BLD IMMUNO SCREENon 65-00-3024TZGSYS BLOODNegativeNormal NEGATIVEThe [facility] HospitalComment on above:Performed By: #### OBSCRN #### [facility] [address] [place] [address] Dr. Williams RdzPROGESTERONEon 13-06-6264Sfhwqrzrdjvj3.1 ng/mLNormalThe [facility] HospitalComment on above:Result Comment: Follicular phase 0.1 - 0.9 Luteal phase 1.8 - 23.9 Ovulation phase 0.1 - 12.0 First trimester 11.0 - 44.3 Second trimester 25.4 - 83.3 Third trimester 58.7 - 214.0 Postmenopausal 0.0 - 0.1Performed By: #### VITB1T #### [facility] [address] [place] [address] Dr. Williams RdzPROLACTINon 12-88-1070Flwzxqxza7.4 ng/mLNormal4.8-23.3The [facility] HospitalComment on above:Performed By: #### PROLAC #### [facility] [address] [address] [address] Williams RdzT4, T3U, FTI LABCORPon 07-49-2967Noiq Thyroxine Index2.3Normal 1.2-4.9The [facility] HospitalComment on above:Performed By: #### VITB1T #### [facility] [address] [place] [address] Dr. Williams RdzT3 Dwyejs83 %Iwwpln41-76Jan [facility] HospitalComment on above: Performed By: #### VITB1T #### [facility] [address] [place] [address] Dr. Williams RdzT4 [Mass/Vol]8.8 ug/dLNormal4.5-12.0The [facility] HospitalComment on above:Performed By: #### VITB1T #### [facility] [address] [place] [address] Dr. Williams RdzTESTOSTERONE, TOTALon 10-82-6193Sgxfpbojrqiq [Mass/Vol]17 ng/dL Normal4-50The [facility] HospitalComment on above:Performed By: #### TESTTOT #### [facility] [address] [place] [address] Dr. Williams Donaldson D 25-OH LABCORPon 09-37-1659Myymaqz D, 25-Ietrtuk33.6 ng/mL Critically low30.0-100.0The [facility] on above:Result Comment: Vitamin D deficiency has been defined by the [place] [employer] and an Endocrine Society practice guideline as a level of serum 25-OH vitamin D less than 20 ng/mL (1,2). The Endocrine Society went on to further define vitamin D insufficiency as a level between 21 and 29 ng/mL (2). 1. IOM ([place] [employer]). 2010. Dietary reference intakes for calcium and D. [place]: The National Academies Press. 2. Guido BECKETT, Lashaun LI, Anali GADRINER, et al. Evaluation, treatment, and prevention of vitamin D deficiency: an Endocrine Society clinical practice guideline. JCEM. 2010; 96(7):1911-30.Performed By: #### VITB1T #### [facility] [address] [place] [address] Dr. Williams García AUTO DIFFon 21-48-1872BDNQ #0.0 103/ulNormal0.0-0.1The [facility] HospitalComment on above:Performed By: #### VITB1T #### [facility] [address] [place] [address] Dr. Williams RdzBasophils/100 WBC (Bld)0.3 %Normal0.2-2.0The [facility] Comment on above:Performed By: #### VITB1T #### [facility] [address] [place] [address] Dr. Williams Lopez #0.1 103/ulNormal0.0-0.7The [facility] HospitalComment on above: Performed By: #### VITB1T #### [facility] [address] [place] [address] Dr. Williams Mariscalosinophils/100 WBC (Bld)0.6 %Critically low0.9-7.0The [facility] HospitalComment on above:Performed By: #### VITB1T #### [facility] [address] [place] [address] Dr. Williams Mariscalrythrocyte distribution width (RBC) [Ratio]14.4 %Rzxifc31.0-15.0 The [facility] HospitalComment on above:Performed By: #### VITB1T #### [facility] [address] [place] [address] Dr. Williams RdzHematocrit (Bld) [Volume fraction]36.2 %Zepkae68.0-48.0Southview Medical CenterComment on above:Performed By: #### VITB1T #### [facility] [address] [place] [address] Dr. Williams RdzHemoglobin (Bld) [Mass/Vol]11.1 g/dLCritically low12.0-16.0The [facility] HospitalComment on above:Performed By: #### VITB1T #### [facility] [address] [place], [place] [id number] Dr. Williams Fox #0.03 10e3/ulNormal0.00-0.03The [facility] HospitalComment on above:Performed By: #### VITB1T #### [facility] [address] [place] [address] Dr. Williams Fox %0.3 %Normal0.0-0.5The [facility] HospitalComment on above: Performed By: #### VITB1T #### [facility] [address] [place] [address] Dr. Williams Almonte #2.5 103/ulNormal1.2-3.8The [facility] HospitalComment on above:Performed By: #### VITB1T #### [facility] [address] [place] [address] Dr. Williams Elainehocytes/100 WBC (Bld)26.4 %Kodclk05.5-60.0The [facility] HospitalComment on above:Performed By: #### VITB1T #### [facility] [address] [place] [address] Dr. Williams AdameUAL DIFF REQNONormalThe [facility] HospitalComment on above: Performed By: #### VITB1T #### [facility] [address] [place] [address] Dr. Williams Israel (RBC) [Entitic mass]23.8 pgCritically low26.7-34.0The [facility] HospitalComment on above:Performed By: #### VITB1T #### [facility] [address] [place] [address] Dr. Williams Israel (RBC) [Mass/Vol]30.7 g/iNWgwofj03.9-35.2The [facility] HospitalComment on above:Performed By: #### VITB1T #### [facility] [address] [place] [address] Dr. Williams Israel (RBC) [Entitic vol]77.7 fLCritically low81.0-99.0The [facility] HospitalComment on above:Performed By: #### VITB1T #### [facility] [address] [place] [address] Dr. Williams Saxena #0.6 103/ulNormal0.3-0.8The [facility] HospitalComment on above:Performed By: #### VITB1T #### [facility] [address] [place] [address] Dr. Williams Osorioocytes/100 WBC (Bld)6.7 %Normal1.7-12.0The [facility] Comment on above:Performed By: #### VITB1T #### [facility] [address] [place] [address] Dr. Williams Abrams #6.2 103/ulNormal1.4-6.5The [facility] HospitalComment on above:Performed By: #### VITB1T #### [facility] [address] [place] [address] Dr. Williams Mgutrophils/100 WBC (Bld)65.7 %Njhedh42.0-75.0The [facility] HospitalComment on above:Performed By: #### VITB1T #### [facility] [address] [place] [address] Dr. Williams Medina mean volume (Bld) [Entitic vol]8.6 fLCritically low 9.5-13.5The [facility] HospitalComment on above:Performed By: #### VITB1T #### [facility] [address] [place] [address] Dr. Williams RdzPLT407 103/baXmzqpy916-334Yqh [facility] HospitalComment on above: Performed By: #### VITB1T #### [facility] [address] [place] [address] Dr. Williams RdzRBC4.66 106/ulNormal4.20-5.40The [facility] HospitalComment on above:Performed By: #### VITB1T #### [facility] [address] [place] [address] Dr. Williams RdzWBC9.4 103/ulNormal4.0-11.0The [facility] HospitalComment on above: Performed By: #### VITB1T #### [facility] [address] [address] [address] Williams RdzGLYCOHEMOGLOBIN A1Con 60-40-7351PAP RECOMMENDATIONSEE BELOWGalion HospitalCommclaren caro region on above:Result Comment: ADA RECOMMENDED LIMIT 4.0 - 6.0 ADA THERAPEUTIC TARGET < 7.0 ACTION SUGGESTED > 7.0Performed By: #### A1C #### [facility] [address] [place] [address] Dr. Williams RdzGlucose [Mass/Vol]111 mg/dLNoMercy Health St. Vincent Medical CenterComment on above:Performed By: #### A1C #### [facility] [address] [place] [address] Dr. Williams RdzHbA1c (Bld) [Mass fraction]5.5 %Normal4.5-6.2[facility] Medical CenterComment on above:Performed By: #### A1C #### [facility] [address] [place] [address] Dr. Williams Mojica 14-82-4520Qvnf [Mass/Vol]43.0 ug/dLCritically low 50.0-170.0[facility] Medical CenterComment on above:Performed By: #### VITB1T #### [facility] [address] [place] [address] Dr. Williams RdzLIPID PROFILEon 99-33-0972BYJS-HDL RATIO NORMSEE BELOWAvita Health System Ontario HospitalComment on above:Result Comment: 3.3 - 4.4 LOW RISK 4.4 - 7.1 AVERAGE RISK 7.1 - 11.0 MODERATE RISK >11.0 HIGH RISKPerformed By: #### TSH, CMP, LIPID #### [facility] [address] [place] [address] Dr. Williams RdzCholesterol [Mass/Vol]142 mg/dLNormal<=200[facility] Comment on above:Performed By: #### TSH, CMP, LIPID #### [facility] [address] [place] [address] Dr. Yilan ChangCholesterol in HDL [Mass/Vol]46 mg/sNIirnhc04-80CedSouthview Medical CenterComment on above:Performed By: #### TSH, CMP, LIPID #### [facility] [address] [address] [address] Williams RdzCholesterol in LDL [Mass/Vol]78.4 mg/dLNoMercy Health St. Vincent Medical CenterComment on above:Performed By: #### TSH, CMP, LIPID #### [facility] [address] [address] [address] Williams Urias.total/Cholesterol in HDL [Mass ratio]3.1 {ratio} NormalThe [facility] HospitalComment on above:Performed By: #### TSH, CMP, LIPID #### [facility] [address] [place] [address] Dr. Williams Davey NORMAL> or = 60 mg/dl - LOW CARDIOVASCULAR RISK <40 mg/dl - HIGH CARDIOVASCULAR RISKAvita Health System Ontario HospitalComment on above:Performed By: #### TSH, CMP, LIPID #### [facility] [address] [place] [address] Dr. Williams Riley CALC NORMALSEE BELOWAvita Health System Ontario HospitalComment on above:Result Comment: <100 mg/dl OPTIMAL 100 - 129 mg/dl NEAR OR ABOVE OPTIMAL 130 - 159 mg/dl BORDERLINE HIGH 160 - 189 mg/dl HIGH >190 mg/dl VERY HIGH Performed By: #### TSH, CMP, LIPID #### [facility] [address] [place] [address] Dr. Williams RdzTriglyceride [Mass/Vol]88 mg/dLNormal<=150[facility] Comment on above:Performed By: #### TSH, CMP, LIPID #### [facility] [address] [place] [address] Dr. Williams GarciaLDL CALC17.6 mg/dLNoMercy Health St. Vincent Medical CenterComment on above: Performed By: #### TSH, CMP, LIPID #### [facility] [address] [place] [address] Dr. Williams RdzPROMelva 14(COMP METB)on 51-20-2350Jyaawas [Mass/Vol]3.8 g/dLNormal 3.4-5.0The [facility] HospitalComment on above:Performed By: #### TSH, CMP, LIPID #### [facility] [address] [address] [address] Williams RdzAlbumin/Globulin [Mass ratio]0.9 {ratio}NormalThe [facility] HospitalComment on above:Performed By: #### TSH, CMP, LIPID #### [facility] [address] [address] [address] Williams RocheP [Catalytic activity/Vol]123 U/LCritically slcc62-252Gxh [facility] HospitalComment on above:Performed By: #### TSH, CMP, LIPID #### [facility] [address] [address] [address] Williams RocheT [Catalytic activity/Vol]26 U/QOztiux19-28Bby [facility] HospitalComment on above:Performed By: #### TSH, CMP, LIPID #### [facility] [address] [address] [address] Williams Butler gap [Moles/Vol]9.1 mmol/LNormalThe [facility] HospitalComment on above:Performed By: #### TSH, CMP, LIPID #### [facility] [address] [address] [address] Williams RdzAST [Catalytic activity/Vol]14 U/LCritically anh57-07Wuz [facility] HospitalComment on above:Performed By: #### TSH, CMP, LIPID #### [facility] [address] [address] [address] Williams RdzBilirubin [Mass/Vol]0.5 mg/dLNormal0.2-1.0The [facility] Comment on above:Performed By: #### TSH, CMP, LIPID #### [facility] [address] [address] [address] Williams RdzCalcium [Mass/Vol]8.9 mg/dLNormal8.5-10.1The [facility] Comment on above:Performed By: #### TSH, CMP, LIPID #### [facility] [address] [address] [address] Williams RdzChloride [Moles/Vol]103 mmol/STybrnf28-457Dxg [facility] Comment on above:Performed By: #### TSH, CMP, LIPID #### [facility] [address] [address] [address] Williams RdzCO2 [Moles/Vol]32.3 mmol/LCritically high21.0-32.0The [facility] HospitalComment on above:Performed By: #### TSH, CMP, LIPID #### [facility] [address] [address] [address] Williams RdzCreatinine [Mass/Vol]0.71 mg/dLNormal0.55-1.02The [facility] HospitalComment on above:Performed By: #### TSH, CMP, LIPID #### [facility] [address] [address] [address] Williams MariscalGFR-AF BAHAMIAN>60Normal>=60The [facility] HospitalComment on above:Performed By: #### TSH, CMP, LIPID #### [facility] [address] [address] [address] Williams Duvall-NON AF BAHAMIAN>60Normal>=60The [facility] HospitalComment on above:Performed By: #### TSH, CMP, LIPID #### [facility] [address] [address] [address] Williams RdzGlobulin (S) [Mass/Vol]4.0 g/dLNormalThe [facility]ana HospitalComment on above:Performed By: #### TSH, CMP, LIPID #### [facility] [address] [address] [address] Williams RdzGlucose [Mass/Vol]105 mg/cQUqsoya00-398Iol [facility] Comment on above:Performed By: #### TSH, CMP, LIPID #### [facility] [address] [address] [address] Williams RdzPotassium [Moles/Vol]3.4 mmol/LCritically low3.5-5.1The [facility] HospitalComment on above:Performed By: #### TSH, CMP, LIPID #### [facility] [address] [place] [address] Dr. Williams RdzProtein [Mass/Vol]7.8 g/dLNormal6.4-8.2The [facility] Comment on above:Performed By: #### TSH, CMP, LIPID #### [facility] [address] [place] [address] Dr. Williams Dentdium [Moles/Vol]141 mmol/HVrdait781-758Ktf [facility] Comment on above:Performed By: #### TSH, CMP, LIPID #### [facility] [address] [place] [address] Dr. Williams Menendez nitrogen [Mass/Vol]19.0 mg/dLCritically high7.0-18.0The [facility] HospitalComment on above:Performed By: #### TSH, CMP, LIPID #### [facility] [address] [place] [address] Dr. Williams Menendez nitrogen/Creatinine [Mass ratio]26.8 mg/mgNormalThe [facility] HospitalComment on above:Performed By: #### TSH, CMP, LIPID #### [facility] [address] [place] [address] Dr. Williams Alvarenga 02-05-0496BDO6.384 uIU/mLNormal0.358-3.740The [facility] HospitalComment on above:Performed By: #### TSH, CMP, LIPID #### [facility] [address] [place] [address] Dr. Williams Donaldson B12 AND FOLATEon 40-30-1107Iikienybd (Vitamin B12) [Mass/Vol] 856.0 pg/gTJlcvjo900.0-986.0The [facility] HospitalComment on above:Performed By: #### VITB1T #### [facility] [address] [place] [address] Dr. Williams RdzFOLATE14.50 ng/mLNormal8.60-58.90The [facility] HospitalComment on above:Performed By: #### VITB1T #### [facility] [address] [address] [address] Williams Kent Summaryon 62-35-2674Phbkjourh SummaryMR#: [id number] [facility]Prem[facility] Name: Lyndon Castro Admitted: 05/17/2017 Discharged: 05/21/2017 Date of : 1975 Physician: Dang Borjas DO DISCHARGE SUMMARYPRIMARY DIAGNOSIS: Chest pain (ruled out coronary artery disease).SECONDARY DIAGNOSES:1. Hypertension.2.Obstructive sleep apnea.3. Diabetes mellitus.4. Polycystic ovarian syndrome.CONSULTATIONS: None.PROCEDURE: Coronary angiogram showed normal coronaries.HISTORY OF PRESENT ILLNESS AND HOSPITAL COURSE:The patient as mentioned above is a 41-year-old female, she is known caseof hypertension and diabetesmellitus. Nonsmoker. The patient complainedof recurrent attack of [...] 21 with stable condition and no more chestpai n.DISCHARGE DISPOSITION: Home.DISCHARGE CONDITION: Stable vital signs. No more chest pain.DISCHARGEMEDICATIONS: Glimepiride 4 mg two times per day, hydralazine 100mg twice a day, irbesartan 300 mg daily, lansoprazole 30 mg capsule daily,metformin 500 mg twice a day, metoprolol 50 mg twice a day, ibuprofen 400mg three times per day as needed for chest pain, and sennosides- docusatesodium 1 tablet oral two times per day as needed for constipation, anddesvenlafaxine succinate ER 50 mg daily.FOLLOWUP INSTRUCTIONS:1. To follow up with her primary care physician within 2 weeks.2. To follow up with Dr. Perez on June 04, 2017, at 09:45 a.m. at [facility].Reviewed By:Margy Davis MD 05/26/2017 01:03 PElectronically Signed by:Dang Borjas DO 05/28/2017 04:44 P Dang Borjas DO I personally saw this patient on the day of the encounter, performed thekey portion(s) of the service and participated in the management andconfirm the resident's documentation. Please note there may be anadditional personal documentation from me. Date Dict: 05/21/2017/05:25 P/BRADLEY Carterate Trans: 05/22/2017 02:16 P/mmoDN_JN:[id number]: Richard Alvarado M.D. [address] [facility] [address]MedcnlTjjBellevue HospitalBASIC METABOLIC PANELon 37-40-9132Meomlrb5.8 mg/dLNormal8.6-10.3The [facility] HospitalComment on above:Order Comment: No: Do not add to previous drawPerformed By: #### 62846, 55476, 98390, 41720 ####[facility] [place] [address], SWWKewejngg032 mmol/SIcdxna44-916Cbr [facility] Comment on above:Order Comment: No: Do not add to previous drawPerformed By: #### 67371, 83495, 33302, 72331 ####[facility] [place] [address], PJMTF593 mmol/AGmpnch85-28Nuf [facility] HospitalComment on above:Order Comment: No: Do not add to previous drawPerformed By: #### 19639, 69453, 52847, 15219 ####[facility] [facility] [place] [address], USACreatinine0.67 mg/dLNormal 0.60-1.20The [facility] HospitalComment on above:Order Comment: No: Do not add to previous drawPerformed By: #### 21324, 04424, 06163, 32167 ####[facility] [place] [address], [place] eGFR (black)mL/min/{1.73_m2}Normal>60The [facility] Comment on above:Order Comment: No: Do not add to previous drawPerformed By: #### 35040, 94001, 97671, 34949 ####[address] [place] [address], [facility]OSPITALeGFR (non-black)mL/min/{1.73_m2}Normal>60The [facility] HospitalComment on above:Order Comment: No: Do not add to previous drawPerformed By: #### 49427, 85816, 32430, 39909 ####[address] [place] [address], [facility] HOSPITALGlucose mass qtjd570 mg/oIQvgh21-256Ilf [facility] HospitalComment on above: Order Comment: No: Do not add to previous drawPerformed By: #### 21411, 91351, 93618, 86821 ####[address] [place] [address], USAPotassium molar conc4.2 mmol/LNormal3.5-5.1The [facility] HospitalComment on above:Order Comment: No: Do not add to previous draw Performed By: #### 40520, 92204, 17678, 32853 ####[address] [place] [address], SSZJbclbk661 mmol/ASqoffw699-503Poe [facility] HospitalComment on above:Order Comment: No: Do not add to previous drawPerformed By: #### 31840, 35496, 71650, 34857 ####[facility] [facility] [place] [address], USAUrea niqtkxni71 mg/dLNormal7-25The [facility] HospitalComment on above:Order Comment: No: Do not add to previous drawPerformed By: #### 57625, 79297, 75512, 08439 ####[address] [place] [address], USACBC COMPLETE BLOOD COUNTon 34-34-3890Wwooubeynyr distribution width Auto Ratio (RBC)14.0 %Djcuij45.5-16.9The [facility] HospitalComment on above:Order Comment: No: Do not add to previous drawPerformed By: #### 18295, 76566, 07800, 61106 ####[address] [place] [address], USAErythrocytes (RBC)4.43 mill/bf7Shooyi1.50-5.50The [facility] HospitalComment on above:Order Comment: No: Do not add to previous drawPerformed By: #### 74275, 19135, 67199, 19276 ####[address] [place] [address], [facility] HOSPITALHematocrit (HCT) 38.1 %Amyiqq99.0-48.0The [facility] HospitalComment on above: Order Comment: No: Do not add to previous drawPerformed By: #### 52969, 51099, 76056, 49002 ####[address] [place] [address], [facility] HOSPITALHemoglobin mass conc (Bld)12.4 g/jUEirzyp49.0-15.0The [facility] HospitalComment on above:Order Comment: No: Do not add to previous drawPerformed By: #### 53891, 87195, 73772, 90943 ####[address] [place] [address], HYCNZM43.9 noEidqsu35.0-32.0 The [facility] HospitalComment on above:Order Comment: No: Do not add to previous drawPerformed By: #### 92900, 73438, 10242, 37838 ####[address] [place] [address], [facility] MCHC mass conc (RBC)32.5 g/fICtqmjp11.0-36.0The [facility] HospitalComment on above:Order Comment: No: Do not add to previous drawPerformed By: #### 26986, 60640, 92611, 24136 ####[address] [place] [address], TTTPDD04.0 uJJudpdd87.0-100.0The [facility] HospitalComment on above:Order Comment: No: Do not add to previous drawPerformed By: #### 71177, 34366, 36475, 03806 ####[address] [place] [address], [facility] COUNTY HOSPITALPLAT AMA377 Thou/su7Oybauw 100-400The [facility] HospitalComment on above:Order Comment: No: Do not add to previous drawPerformed By: #### 86746, 96874, 14347, 89191 ####[address] [place] [address], [facility] WBC (Leukocytes)12.3 Thou/hb4Cemf9.0-10.0The [facility] Comment on above:Order Comment: No: Do not add to previous drawPerformed By: #### 46261, 76640, 39446, 79486 ####[address] [place] [address], [facility] HOSPITALCardiovascular Lab Reporton 05-21-2017 Cardi[facility] ReportUnChildren[facility] Patient Name: [facility]don [facility] MR #: [id number] Physician: Mayco Alfaro,Department of M.D.Medicine Service Date: 05/20/2017Division of Birthdate: 1975Cardiology Room #: 3AB [id number] [address] [place], [place] [address]Malrs Fax Cardiovascular Laboratory ReportFINAL IMPRESSION1.Angiographically nonobstructive coronary arteries.2. Normal global left ventricular systolic function by noninvasive imaging.RECOMMENDATIONS:1. Consider alternative etiologies for the patient's chestpain symptoms, namely pulmonary, musculoskeletal, or GI.2. Aggressive [...] micropuncture access to the left radial artery wasobtained.A 6-Kyrgyz Seldinger sheath was inserted without difficulty.Bilateral selective coronary angiogram was performed using a JR 4 and JL 4catheter. After reviewing the images, it was elected to conclude t heprocedure. All catheters were removed. The radial sheath was removed withapplication of a pressure bandage per protocol achieving optimalhemostasis. Overall, the patient tolerated the procedure well. There wereno overt complications. She was transferred to the holding area in a stablecondition.HEM ODYNAMICS: AO was 108/79. Sedation time was 17 minutes. Totalfluoroscopy was .4mGray and time was 2.59 minutes. Left ventricleventriculography was not performed. Ejection fraction was normal bynoninvasive imaging.CORONARY ARTERIES:1. Left main artery. 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 This bifurc ates into the left anterior descending, left circumflex [...] be taken for further evaluation in the laborer wharf.Edited and Electronically Signed by:Mayco Alfaro M.D. 05/23/2017 02:56 P Mayco Alfaro M.D. I was present for the entire procedure. Date Dict: 05/20/2017/11:21 A/BRADLEY Zhouate Trans: 05/21/2017 07:35 A/Thaddeus_JN:[id number]: Richard Alvarado M.D. [address] [facility] [address]LbfgtdDcsBellevue HospitalHEMOGLOBIN A1Con 12-24-7518Xfafack mass nlre305 mg/dLHigh 70-126The [facility] HospitalComment on above:Order Comment: No: Do not add to previous drawPerformed By: #### 35580, 12063, 78056, 41073 ####[address] [place] [address], [facility] Hemoglobin A1c/Hemoglobin.total mass fraction (Bld)10.0 %High4.0-6.0The [facility] HospitalComment on above:Order Comment: No: Do not add to previous drawPerformed By: #### 77159, 51228, 91419, 48200 ####[facility] [place] [address], [facility] HOSPITALPOC GLUCOSE LAB on 81-94-2835Xletljj mass wgxg111 mg/qUYirh22-268Sig [facility] HospitalComment on above:Performed By: #### 33999, 12872, 23125, 32954 ####[facility] [place] [address], [place] Glucose mass kmqr023 mg/vNVfly80-728Igo [facility] Comment on above:Performed By: #### 39003, 93672, 80370, 15458 ####[facility] [place] [address], USATROPONIN-Ion 62-06-0827Bdgsxptb I.cardiac mass conc0.01 ng/mLNormal0.00-0.04The [facility] HospitalComment on above:Order Comment: No: Do not add to previous drawResult Comment: REFERENCE RANGES: 0.00 - 0.04 ng/ml NORMAL 0.05 - 0.50 ng/ml INDETERMINATE > 0.50 ng/ml CONSISTENT WITH AN M.I.Performed By: #### 83116, 00482, 03938, 08052 ####[facility] [place] [address], USABASIC METABOLIC PANELon 99-30-5442Wvykrlp7.0 mg/dL Normal8.6-10.3The [facility] HospitalComment on above:Order Comment: No: Do not add to previous drawPerformed By: #### 85344, 21863, 32491, 62390 ####[facility] [place] [address], MVJWmufyvjg499 mmol/UZdtlmf23-958Mmw [facility] HospitalComment on above:Order Comment: No: Do not add to previous drawPerformed By: #### 01031, 21327, 79632, 15035 ####[facility] [place] [address], NPQWO966 mmol/XUdqdjg40-83Wmg [facility] HospitalComment on above:Order Comment: No: Do not add to previous drawPerformed By: #### 55049, 38325, 94545, 23939 ####[facility] [place] [address], USACreatinine0.72 mg/dLNormal0.60-1.20The [facility] HospitalComment on above:Order Comment: No: Do not add to previous drawPerformed By: #### 28458, 94381, 48582, 73559 ####[facility] [place] [address], USAeGFR (black) mL/min/{1.73_m2}Normal>60The [facility] HospitalComment on above:Order Comment: No: Do not add to previous drawPerformed By: #### 12634, 49978, 45707, 86878 ####[facility] [place] [address], USAeGFR (non-black)mL/min/{1.73_m2}Normal>60The [facility] HospitalComment on above:Order Comment: No: Do not add to previous drawPerformed By: #### 66935, 64514, 04187, 01148 ####[address] [place] [address], USAGlucose mass sbgl588 mg/tCDedk36-190Rlk [facility] HospitalComment on above:Order Comment: No: Do not add to previous drawPerformed By: #### 01830, 13217, 78558, 25058 ####[address] [address] [facility] [place] [address], USAPotassium molar conc4.1 mmol/LNormal3.5-5.1The [facility] HospitalComment on above:Order Comment: No: Do not add to previous drawPerformed By: #### 56479, 38718, 31830, 01430 ####[address] [place] [address], DKQRsdiye882 mmol/TWmezur365-503Yxf [facility] HospitalComment on above:Order Comment: No: Do not add to previous drawPerformed By: #### 86905, 15663, 85594, 20224 ####[facility] [place] [address], USAUrea xkhalxwk17 mg/dLNormal 7-25The [facility] HospitalComment on above:Order Comment: No: Do not add to previous drawPerformed By: #### 16555, 75417, 11309, 26149 ####[facility] [place] [address], [facility] CBC COMPLETE BLOOD COUNTon 85-21-8005Yexqtsdtipz distribution width Auto Ratio (RBC)14.2 %Cytbwa32.5-16.9The [facility] HospitalComment on above:Order Comment: No: Do not add to previous drawPerformed By: #### 77018, 67341, 95002, 23731 ####[address] [place] [address], [facility] COUNTY HOSPITALErythrocytes (RBC)4.63 mill/hm6Eruoic9.50-5.50The [facility] HospitalComment on above:Order Comment: No: Do not add to previous drawPerformed By: #### 20914, 71743, 23636, 09230 ####[address] [place] [address], [facility] HOSPITALHematocrit (HCT) 39.3 %Popghi77.0-48.0The [facility] HospitalComment on above: Order Comment: No: Do not add to previous drawPerformed By: #### 70298, 73695, 31881, 10648 ####[address] [place] [address], [facility] HOSPITALHemoglobin mass conc (Bld)12.9 g/dYMzkrde28.0-15.0The [facility] HospitalComment on above:Order Comment: No: Do not add to previous drawPerformed By: #### 93038, 53115, 70074, 13744 ####[address] [place] [address], JMUDKN80.0 auXalcge92.0-32.0 The [facility] HospitalComment on above:Order Comment: No: Do not add to previous drawPerformed By: #### 83849, 55553, 22287, 06277 ####[address] [place] [address], [facility] MCHC mass conc (RBC)32.9 g/mJXniwpt97.0-36.0The [facility] HospitalComment on above:Order Comment: No: Do not add to previous drawPerformed By: #### 84301, 38398, 83343, 83823 ####[address] [place] [address], EBVZCH43.0 vDOaldpc62.0-100.0The [facility] HospitalComment on above:Order Comment: No: Do not add to previous drawPerformed By: #### 22642, 02342, 77924, 66760 ####[address] [place] [address], [facility]AD[facility] COUNTY HOSPITALPLAT AYZ739 Thou/ey1Qeaupe 100-400The [facility] HospitalComment on above:Order Comment: No: Do not add to previous drawPerformed By: #### 75092, 58327, 79375, 24845 ####[address] [place] [address], [facility] WBC (Leukocytes)13.8 Thou/cg6Wvfm3.0-10.0The [facility] Comment on above:Order Comment: No: Do not add to previous drawPerformed By: #### 50644, 25202, 28670, 75777 ####[address] [place] [address], [facility] HOSPITALPOC GLUCOSE LABon 05-08-6469Bxecmgm mass conc 278 mg/iOJraq45-783Wen [facility] HospitalComment on above: Performed By: #### 62137, 48492, 14379, 72902 ####[facility] IEMQCF[address] [place] [address], USAGlucose mass xvkt753 mg/dLHigh 70-100The [facility] HospitalComment on above:Performed By: #### 70743, 72727, 98706, 79981 ####[facility] [place] [address], USAGlucose mass bldh032 mg/dRCeje58-873Wvd [facility] HospitalComment on above:Performed By: #### 80943, 50115, 51046, 15212 ####[facility] [place] [address], USAGlucose mass hbas182 mg/qZYwlk25-292Orn [facility] HospitalComment on above:Performed By: #### 38619, 73985, 04366, 68234 ####[facility] [place] [address], USATROPONIN-Ion 80-85-6324Cvwtpqom I.cardiac mass conc0.01 ng/mLNormal0.00-0.04 The [facility] HospitalComment on above:Order Comment: No: Do not add to previous drawResult Comment: REFERENCE RANGES: 0.00 - 0.04 ng/ml NORMAL 0.05 - 0.50 ng/ml INDETERMINATE > 0.50 ng/ml CONSISTENT WITH AN M.I. Performed By: #### 41717, 93973, 17779, 91165 ####[facility] [place] [address], USABASIC METABOLIC PANELon 05-19-2017 Calcium9.0 mg/dLNormal8.6-10.3The [facility] HospitalComment on above:Order Comment: No: Do not add to previous drawPerformed By: #### 68400, 42895, 16680, 73913 ####[facility] [place] [address], ZLFEzczqogs345 mmol/ADgvmmv08-871Qht [facility] HospitalComment on above:Order Comment: No: Do not add to previous draw Performed By: #### 87218, 22129, 41022, 62299 ####[facility] [place] [address], SATPL897 mmol/MIvqqjz98-79Ods [facility] HospitalComment on above:Order Comment: No: Do not add to previous drawPerformed By: #### 36703, 51631, 99030, 87826 ####[facility] [place] [address].[place] [address], USACreatinine0.76 mg/dLNormal0.60-1.20The [facility] HospitalComment on above: Order Comment: No: Do not add to previous drawPerformed By: #### 25042, 80670, 38521, 83253 ####[address] [place] [address], USAeGFR (black)mL/min/{1.73_m2}Normal>60The [facility] HospitalComment on above:Order Comment: No: Do not add to previous drawPerformed By: #### 36572, 56664, 01225, 49751 ####[address] [place] [address], USAeGFR (non-black)mL/min/{1.73_m2}Normal>60The [facility] HospitalComment on above:Order Comment: No: Do not add to previous drawPerformed By: #### 59344, 50582, 82175, 70985 ####[facility] [place] [address].[place] [address], USAGlucose mass lqju083 mg/iJNwki95-210Xfd [facility] HospitalComment on above: Order Comment: No: Do not add to previous drawPerformed By: #### 21634, 39690, 47099, 52525 ####[facility] [facility] [place] [address], USAPotassium molar conc4.4 mmol/LNormal3.5-5.1The [facility] HospitalComment on above:Order Comment: No: Do not add to previous draw Performed By: #### 91365, 17308, 53995, 33448 ####[facility] [place] [address], RUMZeqbkl540 mmol/QNnvind220-826Ygp [facility] HospitalComment on above:Order Comment: No: Do not add to previous drawPerformed By: #### 10921, 89662, 70273, 67524 ####[facility] [place] [address], USAUrea cmsnmove15 mg/dLNormal7-25The [facility] HospitalComment on above:Order Comment: No: Do not add to previous drawPerformed By: #### 31519, 67168, 92105, 99143 ####[facility] [place] [address].[place] [address], [facility]OSPITALCB COMPLETE BLOOD COUNTon 71-73-2690Dvgluiogeqg distribution width Auto Ratio (RBC)13.9 %Sacrmw10.5-16.9The [facility] HospitalComment on above:Order Comment: No: Do not add to previous drawPerformed By: #### 27469, 26471, 63977, 88105 ####[facility] [facility] [place] [address], [facility] COUNTY HOSPITALErythrocytes (RBC)4.50 mill/gx9Rjrthu8.50-5.50The [facility] HospitalComment on above:Order Comment: No: Do not add to previous drawPerformed By: #### 09901, 89524, 53665, 08912 ####[facility] [place] [address].[place] [address], [facility] COUNTY HOSPITALHematocrit (HCT) 38.3 %Smbiut77.0-48.0The [facility] HospitalComment on above: Order Comment: No: Do not add to previous drawPerformed By: #### 37111, 82155, 87736, 24665 ####[facility] [place] [address], [facility] HOSPITALHemoglobin mass conc (Bld)12.4 g/uVYetxzh50.0-15.0The [facility] HospitalComment on above:Order Comment: No: Do not add to previous drawPerformed By: #### 36760, 86524, 98121, 13566 ####[facility] [place] [address].[place] [address], NYIAQB10.7 tnDsusop68.0-32.0 The [facility] HospitalComment on above:Order Comment: No: Do not add to previous drawPerformed By: #### 13620, 81406, 30427, 62300 ####[address] [place] [address], [facility] MCHC mass conc (RBC)32.5 g/vXGffemv52.0-36.0The [facility] HospitalComment on above:Order Comment: No: Do not add to previous drawPerformed By: #### 34601, 34558, 71962, 84736 ####[address] [place] [address], KPIZHE55.2 zNEafvue60.0-100.0The [facility] HospitalComment on above:Order Comment: No: Do not add to previous drawPerformed By: #### 27915, 40959, 84773, 66444 ####[address] [place] [address], [facility] COUNTY HOSPITALPLAT SWA092 Thou/jb5Dlwcls 100-400The [facility] HospitalComment on above:Order Comment: No: Do not add to previous drawPerformed By: #### 96792, 33099, 65570, 64297 ####[address] [place] [address], [facility] HOSPITAL WBC (Leukocytes)13.0 Thou/nj3Sovp9.0-10.0The [facility] Comment on above:Order Comment: No: Do not add to previous drawPerformed By: #### 72094, 21002, 90368, 63137 ####[facility] [place] [address], USAMAGNESIUM BLOODon 22-27-7940Hadxerrjf4.1 mg/dL Normal1.9-2.7The [facility] HospitalComment on above:Order Comment: No: Do not add to previous drawPerformed By: #### 96841, 03365, 87058, 08196 ####[facility] [place] [address], USAPOC GLUCOSE LABon 11-73-5249Rvuqkdv mass aqbz227 mg/yLIkgp20-804Ltg [facility] HospitalComment on above:Performed By: #### 74630, 63681, 20191, 78708 ####[facility] [place] [address], USAGlucose mass nujp026 mg/kHUxwx03-975Ffv [facility] HospitalComment on above:Performed By: #### 31930, 26733, 31699, 52487 ####[facility] [facility] [place] [address], USAGlucose mass xppn927 mg/kTJzde79-235Brp [facility] Comment on above:Performed By: #### 41849, 77722, 30540, 93814 ####[facility] [facility] [place] [address], USAGlucose mass conc 233 mg/aBGijh72-525Diw [facility] HospitalComment on above: Performed By: #### 21292, 50625, 92829, 28176 ####[facility] [place] [address], USATROPONIN-Ion 33-93-5132Bruxnnml I.cardiac mass conc0.00 ng/mLNormal0.00-0.04The [facility] HospitalComment on above:Order Comment: No: Do not add to previous drawResult Comment: REFERENCE RANGES: 0.00 - 0.14 ng/ml NEGATIVE 0.15 - 0.25 ng/ml INDETERMINATE > 0.25 ng/ml INDICATIVE OF AN M.I.Performed By: #### 18401, 71391, 45556, 66747 ####[facility]*URINE CULTUREon 05-18-2017*URINE CULTUREClinical Report: (C) Specimen/Source: URINE/MIDSTREAM Collected: 05/18/2017 01:00 Status: Final Last Updated: 05/20/2017 10:07 (1) No: Do not add to previous draw ISO (Final) +Upon reincubation: +>100,000 Cfu/Ml +Uro-Genital Cristy Result changed by RADHA on 05/20/2017 10:07. The previous result was: ISO (Final) 100,000 Cfu/MlNormal The [facility] HospitalComment on above:Order Comment: No: Do not add to previous drawPerformed By: #### 69179 ####[facility]APTTon 24-56-6458lNDY03.5 sLow25.0-35.0The [facility] HospitalComment on above:Order Comment: No: Do not add to previous drawResult Comment: ALL RESULTS MUST BE INTERPRETED WITH RESPECT TO BLOOD DRAWING ARTIFACTOR DILUTION ERROR OF ANTICOAGULANT AT THE TIME OF SAMPLING.THE APTT SHOULD NOT BE USED TO MONITOR UNFRACTIONATED HEPARIN THERAPY, THIS LABORATORY NO LONGER HAS AN ESTABLISHED THERAPEUTIC RANGE BASEDON THE APTT. IT IS RECOMMENDED THAT THE UFH - HEPARIN ASSAY (ANTI-XAACTIVITY) BE USED FOR THIS PURPOSE.Performed By: #### 90064, 30828 ####[facility] BASIC METABOLIC PANELon 92-68-6725Djvszxy5.6 mg/dLNormal8.6-10.3The [facility] HospitalComment on above:Order Comment: No: Do not add to previous drawPerformed By: #### 73853 ####[facility] [place] [address], QINBpuerpci761 mmol/RXimivw62-177Qax [facility] HospitalComment on above:Order Comment: No: Do not add to previous drawPerformed By: #### 33167 ####[facility] [place] [address], GWFLQ570 mmol/MXtvqkz45-28Vzr [facility] HospitalComment on above:Order Comment: No: Do not add to previous drawPerformed By: #### 50659 ####[facility] [place] [address], USACreatinine0.64 mg/dLNormal 0.60-1.20The [facility] HospitalComment on above:Order Comment: No: Do not add to previous drawPerformed By: #### 36206 ####[facility] [place] [address], USAeGFR (black) mL/min/{1.73_m2}Normal>60The [facility] HospitalComment on above:Order Comment: No: Do not add to previous drawPerformed By: #### 28203 ####[facility] [place] [address], [place] eGFR (non-black)mL/min/{1.73_m2}Normal>60The [facility] Comment on above:Order Comment: No: Do not add to previous drawPerformed By: #### 29999 ####[facility] [place] [address], USAGlucose mass lilr531 mg/bBGarl40-645Fbf [facility] HospitalComment on above:Order Comment: No: Do not add to previous drawPerformed By: #### 46578 ####[facility] [place] [address], USAPotassium molar conc3.5 mmol/LNormal3.5-5.1The [facility] HospitalComment on above:Order Comment: No: Do not add to previous drawPerformed By: #### 32425 ####[facility] [place] [address], OXOCyvryx769 mmol/GWkknqp543-375Xji [facility] HospitalComment on above:Order Comment: No: Do not add to previous drawPerformed By: #### 87531 ####[facility] [place] [address], USAUrea znrdrsyk04 mg/dLNormal7-25The [facility] HospitalComment on above:Order Comment: No: Do not add to previous drawPerformed By: #### 18762 ####[facility] [facility] [address], USACBC COMPLETE BLOOD COUNTon 53-52-8754Whutjrjujqi distribution width Auto Ratio (RBC)14.1 %Prfsoy94.5-16.9 The [facility] HospitalComment on above:Order Comment: No: Do not add to previous drawPerformed By: #### 98082 ####[facility] [facility] [place] [address], [facility]AL[facility] COUNTY HOSPITALErythrocytes (RBC)4.46 mill/wt2Yezasy1.50-5.50The [facility] HospitalComment on above: Order Comment: No: Do not add to previous drawPerformed By: #### 90534 ####[facility] [facility] [place] [address], [place] Hematocrit (HCT)38.2 %Kcsmpf13.0-48.0The [facility] Comment on above:Order Comment: No: Do not add to previous drawPerformed By: #### 74543 ####[facility] [facility] [place] [address], [facility] COUNTY HOSPITALHemoglobin mass conc (Bld)12.4 g/eWOaalvt32.0-15.0The [facility] HospitalComment on above:Order Comment: No: Do not add to previous drawPerformed By: #### 19015 ####[facility] [place] [address], SLYVBL36.9 wjThcqxd52.0-32.0The [facility] HospitalComment on above:Order Comment: No: Do not add to previous drawPerformed By: #### 22657 ####[facility] [place] [address], [facility] S[facility]THHC mass conc (RBC)32.5 g/fCUqdqpb18.0-36.0 The [facility] HospitalComment on above:Order Comment: No: Do not add to previous drawPerformed By: #### 70108 ####[facility] [place] [address], OKCXDO79.8 rSQmmejx60.0-100.0 The [facility] HospitalComment on above:Order Comment: No: Do not add to previous drawPerformed By: #### 50771 ####[facility] [place] [address], GUADALU[facility] COUNTY HOSPITALPLAT QRB569 Thou/lr0Qwpgew 100-400The [facility] HospitalComment on above:Order Comment: No: Do not add to previous drawPerformed By: #### 62644 ####[facility] [place] [address].[place] [address], [facility] COUNTY HOSPITALWBC (Leukocytes)13.5 Thou/ia8Fbyi2.0-10.0The [facility] HospitalComment on above: Order Comment: No: Do not add to previous drawPerformed By: #### 05940 ####[facility] [place] [address].[place] [address], [facility] LIPID PROFILEon 33-64-3207Yfqvvdbwcor422 mg/gFEer475-391Nhw [facility] HospitalComment on above:Order Comment: No: Do not add to previous draw Result Comment: CHOLESTEROL REFERENCE RANGE:20 YEARS AND OLDER CARDIOVASCULAR RISKLess than 200 mg/dl Low Ymup598 to 239 mg/dl Borderline Kcun256 mg/dl and greater High RiskPerformed By: #### 07576 ####[facility] [place] [address], [facility] COUNTY HOSPITALCholesterol to HDL Ratio4.6 {ratio}High.0-4.5The [facility] HospitalComment on above:Order Comment: No: Do not add to previous drawPerformed By: #### 64810 ####[facility] [place] [address], [facility] COUNTY HOSPITALHDL Cholesterol 25 mg/oHEnbyph98-16Zdo [facility] HospitalComment on above:Order Comment: No: Do not add to previous drawResult Comment: Slight variation in normal range could be due to gender and/or age.HDL CHOLESTEROL REFERENCE RANGE:20 years and older Cardiovascular Risk> or =60 mg/dL Owwcxzbaz93 TO 59 mg/dL Low Risk<40 mg/dL High RiskPerformed By: #### 69169 ####[facility] [place] [address], GUADALU[facility] COUNTY HOSPITALLDL Qhwxsbaqfha13 mg/dLNormal0-130The [facility] HospitalComment on above:Order Comment: No: Do not add to previous drawResult Comment: LDL IS A CALCULATIONLDL IS ONLY VALID IF THE TRIG IS LESS THAN 400.Performed By: #### 55519 ####[facility] [place] [address], [facility] NON-HDL UYBZNEYBVKC77 mg/dLNormalThe [facility] HospitalComment on above:Order Comment: No: Do not add to previous drawPerformed By: #### 92994 ####[facility] [place] [address], [facility] Lriltjvqxkja841 mg/fOHgis03-862Xua [facility] HospitalComment on above:Order Comment: No: Do not add to previous drawResult Comment: TRIGLYCERIDE REFERENCE RANGE:20 YEARS AND OLDER CARDIOVASCULAR RISKLESS THAN 150 mg/dl LOW IEZS626 TO 199 mg/dl BORDERLINE SPTJ465 mg/dl AND GREATER HIGH RISK Performed By: #### 83379 ####[facility] [place] [address], USAVLDL CHOL51 mg/dLHigh0-40The [facility] HospitalComment on above:Order Comment: No: Do not add to previous draw Performed By: #### 11833 ####[facility] [place] [address], USAMAGNESIUM BLOODon 62-33-7723Ohwnqtatj6.9 mg/dLNormal 1.9-2.7The [facility] HospitalComment on above:Order Comment: No: Do not add to previous drawPerformed By: #### 98626 ####[facility] [place] [address], USAMETANEPHRINES URINE 1527571qu 11-64-8567NJMU TIMERandomBellevue Hospital Comment on above:Order Comment: No: Do not add to previous jactXbbsmzkfdw51 mg/dLBellevue HospitalComment on above:Order Comment: No: Do not add to previous drawCreatinineNot LnwhjgqmihCowyhw819-7662 [facility] CenterComment on above:Order Comment: No: Do not add to previous drawResult Comment: Performed by [facility],[address] [place] [address] tgo.FRS, Matthew Ortega MD - Lab. DirectorMETANEPHRINE INTERPRETATIONSee [facility] County HospitalComment on above:Order Comment: No: Do not add to previous draw Result Comment: TEST INFORMATION: Metanephrines Fractionated, UrineThe optimal specimen for this testing is a 24-hour urinecollection. Per-day calculations are not reported forpatients younger than 7years of age and for the followingspecimen types: a random collection, a collection withduration ofless than 20 hours, a collection with durationof greater than 28 hours, or a collection with total volumeless than 400 mL (if 18 years of age or older) or greaterthan 5000 mL (all ages). Ratios to creatinine may be usefulfor these evaluations.Smaller increases in metanephrine and/or normetanephrinec oncentrations (less than two times the upper referencelimit) usually are the result of physiological stimuli,drugs, or improper specimen collection. Essentialhypertension is often associated with slight elevations(metanephrine less than 400 ug/d and normetanephrine lessthan 900 ug/d). Elevated gutierrez ntrations may be due tointense physical activity, life-threatening illness, anddrug interferences.Significant elevation of one or both metanephrines (threeor more times the upper reference limit) is associated withan increased probability of a neuroendocrine tumor.Access complete set of age- and/orgender- specificreference intervals for this test in the [employer] LaboratoryTest Directory (FRS).See Compliance statement B: www.[employer]/CSMETANEPHRINE PER GHDCDJ00 ug/LNormalThe [facility] HospitalComment on above:Order Comment: No: Do not add to previous drawMETANEPHRINE UTNot ApplicableNormal 39-143The [facility] HospitalComment on above:Order Comment: No: Do not add to previous drawMETANEPHRINE/TECHNICAL SUPPORT AGENT AOPMA688 ug/g CRTNormal0-300The [facility] HospitalComment on above:Order Comment: No: Do not add to previous drawNORMETANEPHRINE PER FTZDUE831 ug/LNormalThe [facility] HospitalComment on above:Order Comment: No: Do not add to previous drawNORMETANEPHRINE UTNot CralfhallhZwcxvg510-016Yjo [facility] HospitalComment on above:Order Comment: No: Do not add to previous draw NORMETANEPHRINE/TECHNICAL SUPPORT AGENT DIVRI277 ug/g CRTHigh0-400The [facility] HospitalComment on above:Order Comment: No: Do not add to previous drawVOLUME ml RandomNormalThe [facility] HospitalComment on above:Order Comment: No: Do not add to previous drawPOC GLUCOSE LABon 28-10-5610Wtwawcw mass ftxg507 mg/eDImkr27-484Pbo [facility] HospitalComment on above: Performed By: #### 20623, 85146, 03495, 17780 ####[facility] [place] [address], USAGlucose mass oplc893 mg/dLHigh 70-100The [facility] HospitalComment on above:Performed By: #### 34066 ####[facility] [place] [address], USAGlucose mass nlsc363 mg/oGYsyb97-313Fpt [facility] HospitalComment on above:Performed By: #### 00947 ####[facility] [place] [address], USAPORTABLE CHEST 1 VIEWon 11-63-9039USGRFQQR CHEST 1 VIEWUnLicking Memorial HospitalDepartment of Nmfaaisex[address] [place] [address] [id number] Patien t Name: LYNDON CASTRO : 1975Sex: FAge: Race: NAMRN: [id number]. Location: [id number] Status: IVisit #: [id number] Date: 05/17/2017 11:00:00 PMCompleted Date: 05/17/2017 11:19 PMRequesting Provider: ADRIANA OWEN Attending Provider: MAXIMILIAN GALAN Report Copy To: Signs & Symptoms: Chest PainHistory: Patient history not availableComments: R/O CHFExam: PORTABLE CHEST 1 VIEWAccession #: [id number] =PORTABLE CHEST 1 VIEW 05/17/2017 11:19 PM EDT SIGNS AND SYMPTOMS: Chest Pain TECHNOLOGIST COMMENTS: midline chest pain, patient states transferred here for a heart cath QUESTION FOR THE RADIOLOGIST: R/O CHF PROTOCOL: AP(PA) view was obtained. COMPARISON: None. FINDINGS: The trachea is midline. The cardiac si lhouette appears enlarged. The mediastinal contours and pulmonary vascular markings appear within normal limits. There is no focal opacification, pleural effusion or pneumothorax. IMPRESSION: Cardiomegaly without evidence for acute cardiopulmonary process. Approved by:Anita Roman on 05/18/2017 12:08 AM EDT. I, Jay Fulton, have reviewed the images and report and concur with these findings. Electronically signed by:Jay Fulton. Transcribed by: [email or web address], User Resident: ANITA PALENCIAElectronically Signed by: JAY FULTON @ 05/18/2017 08:27 AMI personally read this/these film(s) with this residentBellevue HospitalComment on above:Order Comment: No: Do not add to previous drawPROTHROMBIN TIMEon 16-94-4540NNM Coag RelTime (PPP)1.04 {INR}Normal0.91-1.16The [facility] Comment on above:Order Comment: No: Do not add to previous drawResult Comment: ACCCP RECOMMENDED INR FOR WARFARIN THERAPY CONDITION INRPROPHYLAXIS OF VENOUS THROMBOSIS 2-3(HIGH-RISK SURGERY)TREATMENT OF VENOUS THROMBOSIS 2-3TREATMENT OF PULMONARY EMBOLISM 2-3PREVENTION OF SYSTEMIC EMBOLISM: 2-3 ACUTE MYOCARDIAL INFARCTION TISSUE HEART VALVES VALVULAR HEART DISEASE ATRIAL FIBRILLATION RECURRENT SYSTEMIC EMBOLISMMECHANICAL HEART VALVE 2.5-3.5 FROM: ORAL ANTICOAGULANTS. MECHANISM OF ACTION, CLINICALEFFECTIVENESS, AND OPTIMAL THERAPEU TIC RANGE. [id number];108:231S-246S.Performed By: #### 52344, 29688 ####[place] [address] [place] [address], [facility] Prothrombin time (PT) Coag time (PPP)13.6 eJxewgl49.3-14.8The [facility] HospitalComment on above:Order Comment: No: Do not add to previous drawResult Comment: ALL RESULTS MUST BE INTERPRETED WITH RESPECT TO BLOOD DRAWING ARTIFACTOR DILUTION ERROR OF ANTICOAGULANT AT THE TIME OF SAMPLING. Performed By: #### 41969, 04262 ####[place] [address] [facility] [place] [address], [facility] COUNTY HOSPITALTROPONIN-Ion 35-11-7035Mrdjpjsw I.cardiac mass conc0.00 ng/mLNormal0.00-0.04The [facility] HospitalComment on above:Order Comment: No: Do not add to previous drawResult Comment: REFERENCE RANGES: 0.00 - 0.14 ng/ml NEGATIVE 0.15 - 0.25 ng/ml INDETERMINATE > 0.25 ng/ml INDICATIVE OF AN M.I.Performed By: #### 52575 ####[place] [address] [place] [address], USATSHon 05-18-2017 Thyroid stimulating hormone (TSH)3.56 MICRO-IU/MLNormal0.34-5.60The [facility] HospitalComment on above:Performed By: #### 04725 ####[place] [address] [place] [address], USAUA,MICROSCOPIC REQUIREDon 97-83-9431Scqxlyxev (total)NegativeNormalNEGATIVEThe [facility] HospitalComment on above:Order Comment: No: Do not add to previous drawPerformed By: #### 26516 ####[address] [place] [address], USABLOODNegativeNormalNEGATIVEThe [facility] HospitalComment on above:Order Comment: No: Do not add to previous drawPerformed By: #### 36215 ####[facility] [facility] [place] [address], USAEPISMANYAbnormalFEWThe [facility] HospitalComment on above:Order Comment: No: Do not add to previous draw Performed By: #### 46061 ####[facility] [place] [address], USAErythrocytes (RBC)7-9Ogasttrw3-4Oxj [facility] HospitalComment on above:Order Comment: No: Do not add to previous drawPerformed By: #### 95021 ####[facility] [place] [address].[place] [address], [facility] COUNTY HOSPITALGlucose mass conc50 mg/dLAbnormalNEGATIVEThe [facility] HospitalComment on above:Order Comment: No: Do not add to previous drawPerformed By: #### 90856 ####[facility] [place] [address] [address], USAKETONENegativeNormalNEGATIVEThe [facility] HospitalComment on above:Order Comment: No: Do not add to previous drawPerformed By: #### 39709 ####[facility] [place] [address], USALEUK ESTERNegativeNormalNEGATIVE The [facility] HospitalComment on above:Order Comment: No: Do not add to previous drawPerformed By: #### 84742 ####[facility] [place] [address], USAMUCUS THREADSOCCAbnormal NONE SEENThe [facility] HospitalComment on above:Order Comment: No: Do not add to previous drawPerformed By: #### 82762 ####[facility] [place] [address], USApH of blood5.0 [pH]Normal 5.0-8.0The [facility] HospitalComment on above:Order Comment: No: Do not add to previous drawPerformed By: #### 93316 ####[facility] [place] [address], USAProteinNegativeNormal NEGATIVEThe [facility] HospitalComment on above:Order Comment: No: Do not add to previous drawPerformed By: #### 02859 ####[facility] [place] [address], USASPEC GRAV1.020Normal 1.015-1.020The [facility] HospitalComment on above:Order Comment: No: Do not add to previous drawPerformed By: #### 50013 ####[facility] [place] [address], USAUrine, appearanceSL CLOUDYAbnormalCLEARThe [facility] HospitalComment on above:Order Comment: No: Do not add to previous drawPerformed By: #### 68826 ####[facility] [place] [address], [place] Urine, bacteria in sedimentOCCAbnormalNONE SEENThe [facility] HospitalComment on above:Order Comment: No: Do not add to previous drawPerformed By: #### 50596 ####[facility] [place] [address], USAUrine, colorYELLOWNormalYELLOWThe [facility] HospitalComment on above:Order Comment: No: Do not add to previous drawPerformed By: #### 34108 ####[facility] [place] [address], USAUrine, nitrite presenceNegativeNormalNEGATIVEThe [facility] HospitalComment on above:Order Comment: No: Do not add to previous drawPerformed By: #### 27770 ####[facility] [place] [address], USAWBC QR7-1Qikqldxb5-5Ncj [facility] HospitalComment on above:Order Comment: No: Do not add to previous draw Performed By: #### 51311 ####[facility] [place] [address], USABASIC METABOLIC PANELon 82-27-5633Ezsuqjr6.0 mg/dL Normal8.6-10.3The [facility] HospitalComment on above:Order Comment: No: Do not add to previous drawPerformed By: #### 00310, 01024, 55893, 25265 ####[facility] [place] [address], ANCPsmscbud574 mmol/QIegzdq05-445Vry [facility] HospitalComment on above:Order Comment: No: Do not add to previous drawPerformed By: #### 75739, 09864, 88579, 59780 ####[facility] [place] [address], HLEWD767 mmol/KRzyffx24-91Nfh [facility] HospitalComment on above:Order Comment: No: Do not add to previous drawPerformed By: #### 09129, 71757, 19376, 83349 ####[facility] [place] [address], USACreatinine0.74 mg/dLNormal0.60-1.20The [facility] HospitalComment on above:Order Comment: No: Do not add to previous drawPerformed By: #### 98948, 51433, 34297, 92267 ####[facility] [place] [address], USAeGFR (black) mL/min/{1.73_m2}Normal>60The [facility] HospitalComment on above:Order Comment: No: Do not add to previous drawPerformed By: #### 27122, 10810, 20701, 46217 ####[facility] [place] [address], USAeGFR (non-black)mL/min/{1.73_m2}Normal>60The [facility] HospitalComment on above:Order Comment: No: Do not add to previous drawPerformed By: #### 76638, 80193, 98340, 97055 ####[facility] [place] [address], USAGlucose mass jmlw856 mg/uCNzzv75-795Eqo [facility] HospitalComment on above:Order Comment: No: Do not add to previous drawPerformed By: #### 89008, 12059, 19510, 40769 ####[address] [place] [address], USAPotassium molar conc3.5 mmol/LNormal3.5-5.1The [facility] HospitalComment on above:Order Comment: No: Do not add to previous drawPerformed By: #### 62041, 94327, 03004, 97797 ####[address] [place] [address], HSPQixhej392 mmol/QIwfxsd595-775Yoz [facility] HospitalComment on above:Order Comment: No: Do not add to previous drawPerformed By: #### 45226, 03590, 90709, 33549 ####[address] [place] [address], USAUrea mg/dLHigh 7-25The [facility] HospitalComment on above:Order Comment: No: Do not add to previous drawPerformed By: #### 93276, 63079, 35074, 11824 ####[address] [place] [address], [place] CBC COMPLETE BLOOD COUNTon 86-56-2937Dgivzctetni distribution width Auto Ratio (RBC)14.5 %Pbpsxs97.5-16.9The [facility] HospitalComment on above:Order Comment: No: Do not add to previous drawPerformed By: #### 11597 ####[facility] [place] [address], [facility] Erythrocytes (RBC)4.54 mill/uy8Idxqjl9.50-5.50The [facility] HospitalComment on above:Order Comment: No: Do not add to previous drawPerformed By: #### 08838 ####[facility] [place] [address], [facility]OSPITALHematocrit (HCT)39.3 %Dafkdd97.0-48.0The [facility] HospitalComment on above:Order Comment: No: Do not add to previous draw Performed By: #### 08089 ####[facility] [place] [address], [facility]OSPITALHemoglobin mass conc (Bld)12.6 g/kDYfwjyr28.0-15.0The [facility] HospitalComment on above:Order Comment: No: Do not add to previous drawPerformed By: #### 75491 ####[facility] [place] [address], LVOZXE63.8 yjRlzqun23.0-32.0The [facility] HospitalComment on above:Order Comment: No: Do not add to previous drawPerformed By: #### 92943 ####[facility] [place] [address], [facility] HOSPITALMCHC mass conc (RBC)32.1 g/dL Tbnnzc17.0-36.0The [facility] HospitalComment on above:Order Comment: No: Do not add to previous drawPerformed By: #### 76354 ####[facility] [place] [address], JATTCM85.7 fLNormal 80.0-100.0The [facility] HospitalComment on above:Order Comment: No: Do not add to previous drawPerformed By: #### 37678 ####[facility] [place] [address], [place] DWK510 Thou/fl8Uvlp720-256Ciw [facility] HospitalComment on above:Order Comment: No: Do not add to previous drawPerformed By: #### 46340 ####[address] [place] [address], USAWBC (Leukocytes)17.8 Thou/mm0Wbbv3.0-10.0The [facility] Comment on above:Order Comment: No: Do not add to previous drawPerformed By: #### 30361 ####[address] [place] [address], [facility]OSPITALCPK-MB PROFILEon 47-92-1330XNGM5.5 ng/mLNormal0.0-5.0The [facility] HospitalComment on above:Result Comment: IF TOTAL CK <200 U/L AND: 1. CKMB IS 5-10 NG/ML----BORDERLINE 2. CKMB IS >10 NG/ML----INDICATIVE OF DC OR IF TOTAL CK >200 U/L AND CKMB INDEX >1.9----INDICATIVE OF MIPerformed By: #### 65510, 13389, 16068, 92990 ####[place] [address] [place] [address], ZAADBTP16.0 ng/mLCritically high0.0-1.9The [facility] HospitalComment on above:Performed By: #### 43826, 47494, 57184, 53746 ####[address] [place] [address], USACreatine kinase (CK)15 U/EWrb97-056Fuj [facility] Comment on above:Performed By: #### 30913, 60903, 72074, 74636 ####[address] [place] [address], USAMAGNESIUM BLOODon 63-29-0477Dvdbxlssf5.0 mg/dLNormal1.9-2.7The [facility] Comment on above:Order Comment: No: Do not add to previous drawPerformed By: #### 88436, 13155, 86858, 69013 ####[facility] [place] [address], [facility] HOSPITALPOC GLUCOSE LABon 54-01-1597Wdoyhgv mass conc 214 mg/bJXrwn72-630Pqo [facility] HospitalComment on above: Performed By: #### 72172 ####[facility] [place] [address], [facility] HOSPITALTROPONIN-Ion 99-71-4025Glrphwjw I.cardiac mass conc0.01 ng/mLNormal0.00-0.04The [facility] HospitalComment on above: Order Comment: No: Do not add to previous drawResult Comment: REFERENCE RANGES: 0.00 - 0.04 ng/ml NORMAL 0.05 - 0.50 ng/ml INDETERMINATE > 0.50 ng/ml CONSISTENT WITH AN M.I.Performed By: #### 73775, 02081, 23165, 66973 ####[address] [place] [address], [facility] Encounters Encounter DateEncounter TypeCare ProviderFacilityStart: 23-39-8727pmixqnnzqx Richard HoyFacility:[facility] BellevueStart: 07-21-2024 End: 89-01-4871nwvlsxogtbWdfqkty HoyFacility:[facility] BellevueStart: 07-21-2024 End: 22-79-2906Bbnsunh encounter procedureMichael R NILL [phone]-Eggzc [facility] [place] Start: 25-29-8030rbwpbvwthhXD RICHARD ALVARADO .Facility: Start: 05-23-2022 End: 94-59-0768yaaqjmcediOIOQK LALORFacility:Z0Dmqgc: 93-57-6966nusrdqdlfqMA RICHARD HOY .Facility:P1Csdwh: 69-73-3359Rzhbzsfta for general adult medical examination without abnormal findingsDR RICHARD HOY .[facility]: 04-02-2022 End: 22-31-6634ogskgpqupyWY RICHARD HOY .Facility:T5Luoos: 04-02-2022 End: 65-46-7778Gycopfzif for general adult medical examination without abnormal findingsDR RICHARD HOY .Facility:H4Ignyq: 03-31-2022 End: 90-43-6202virxuelroyHL RICHARD HOY .Facility:W9Hzeah: 05-17-2017 End: 19-31-5373TkpqdokgofWEZSQ J OURIFacility:[facility]ENTERtart: 04-17-2017 End: 28-05-8495FjocfejatbHOZLICX PHYSICIANFacility:[facility] Procedures DateProcedureProcedure DetailPerforming ClinicianStart: 12-10-0241Tezlwdycljom cyst (disorder)Paramjit NILL Start: 66-19-5349FAEIUVFTDKG OF MULTIPLE CORONARY ARTERIES USING OTH CONTRASTMARK BURKETStart: 98-60-7805Weynwybllury cyst (disorder)Paramjit NILL Biopsy of breastMichael NILL Bypass of stomachMichael NILL Cardiac catheterizationMichael NILL CholecystectomyMichael NILL CystopexyMichael NILL EsophagogastroduodenoscopyMichael NILL HysterectomyMichael NILL Ligation of fallopian tubeMichael NILL Immunizations Immunization DateImmunizationNotesCare WfnqwpayDfxyrvdt88-36-8769RKZS-ZmX-0 (COVID-19) mRNA-1273 vaccineMichael NILL [phone]-Eidiu [facility] Comment on above:Result Comment: 2022-12-26: ULD8313-38-6427QXEF-IkT-8 (COVID- 19) mRNA-1273 vaccineMichael NILL [phone]-HfmoyGrant Hospital [facility] [place] Comment on above:Result Comment: 2022-12-26: TPV23 Payers DatePayer CategoryPayerPolicy [id number] [id number]. [id number] [id number] 2.16.840.1.282114.3.57[id number] 2.16.840.1.038905.3.57[id number] 2.16.840.1.316758.3.57[id number] 2.16.840.1.407852.3.57[id number] 2.16840.1.596714.3.579.2.35451-30-1227Nwev-[id number] 13-94-83[id number]-1253EqjosimGC4620513Ekqapvu Social History DateTypeDetailFacilityTobacco smoking statusNo Smoking Status [facility]tered[facility] [place] [facility] At [facility] Clinical Note 06-23-2025 Note Date & OmfwNniaKmkfggsd38-47-8100 NoteGeneral Surgery Office/Clinic Note Chief Complaint consultation for anemia HPI Staff 49 year old female presents on consultation from Dr. Alvarado for iron deficiency anemia. Labs ttcwdbyap95/10 with H/H 10.5 and 35.4, iron 32. Patient does not take an iron supplement. History of gastricbypass approximately 8-9 years ago. Previous EGD completed approximately 3 years with ulcer at anastomosis per patient. Never had colonoscopy in the past. Denies abdominal pain. Reports occasional rectal pain and bleeding from known hemorrhoids. Denies change in bowel habits. Denies nausea, vomiting or weight loss. History of Present Illness 49 yo female with h/o htn, polycystic ovary syndrome, referred for iron deficiency anemia; abd operations significant for cholecystectomy, gastric bypass, tubal ligation and hysterectomy; patient denies change in bms or gross blood in stools, no melena; h/o marginal ulcer 3 years ago at gastrojejunostomy anastomosis, had gastric bypass 9 years ago; patient has been on PPI since then;no previous colonoscopy, last EGD 3 years ago; takes occasional ibuprofen, no asa; no tobacco use; no fmhx of GI malignancy or IBD. Review of Systems PHQ Score Initial Depression Screen Score: 0 SCORE ROS - Provider Constitutional: no fever, no sweats, no weight loss. Eyes: yes glasses, no blurred vision, no visual loss. ENMT: no dentures, no hoarseness, no swallowing difficulties, no hearing loss, no ear infection(s),no nose bleeds. Cardiovascular: normal blood pressure, no chest pain, regular heartbeat, no heart murmur. Respiratory: no shortness of breath, no cough, no asthma, no wheezing. Gastrointestinal: no nausea, no vomiting, no diarrhea, no constipation, no blood in stool, no change in bowel habits, no abdominal pain, no hepatitis. Genitourinary: no kidney stones, no urine infection, no dysuria. Musculoskeletal: no pain, no weakness. Skin: no changing moles, no rash, no skin lumps. Neurologic: no seizures, no epilepsy, no headache. Psychiatric: no emotional or psychiatric problem. Heme/Lymph: no bleeding problems, no anemia, no blood clots, no transfusions. Allergy/Immunologic: no swollen lymph nodes/glands, no IV drug abuse. Other: Additional ROS info: Except as noted in the above Review of Systems and in the History of Present Illness, all other systems have been reviewed and are negative or noncontributory. Physical Exam Vitals & Measurements HR: 76(Peripheral) RR: 16 BP: 138/90 HT: 71 in HT: 180.3 cm WT: 214.069 lb WT: 97.1 kg BMI: 29.87 HEENT: normal conjunctiva, sclera clear, no scleral icterus, EOM intact, PERRLA, oral mucosa moist without lesions. Neck: trachea midline, no mass, symmetric, no thyromegaly or nodules, no adenopathy Respiratory: lungs CTA, respirations non labored. Cardiovascular: regular rate and rhythm, no murmur, no pedal edema or varicosities. Gastrointestinal: obese, soft, non distended, no tenderness, no masses, no palpable hernias, diastasis recti yes, no hepatosplenomegaly; normal bs Musculoskeletal: normal gait, digits and nails without infection, nodes, cyanosis, clubbing. Skin: no rashes, no lesions, no ulcers, no subcutaneous nodules, induration. Psychiatric/Neuro: oriented to time, place, person, judgement normal, affect appropriate for age, insight intact, no focal deficits. Tests: labs reviewed, review of old records completed , Discussed surgical options, risks, and possible complications with patient. Assessment/Plan 1. Iron deficiency anemia (D50.9: Iron deficiency anemia, unspecified) plan EGD and colonoscopy under anesthesia for further evaluation; informed consent obtained. 2. History of gastric bypass (Z98.84: Bariatric surgery status) see # 1 3. Anastomotic ulcer S/P gastric bypass (K28.9: Gastrojejunal ulcer, unspecified as acute or chronic, without hemorrhage or perforation) see # 1 4. Screening for malignant neoplasm of colon (Z12.11: Encounter for screening for malignant neoplasm of colon) see # 1 Follow-up No qualifying data available Problem List/Past Medical History Ongoing Anastomotic ulcer S/P gastric bypass BMI 29.0-29.9,adult Diabetes Disorder of pituitary gland Essential hypertension History of esophagitis History of gastric bypass Insomnia Iron deficiency anemia Overweight Polycystic ovary syndrome Screening for malignant neoplasm of colon Tension-type headache Vitamin B deficiency Historical No qualifying data Procedure/Surgical History Pilar cyst (10/2018), Pilar cyst (06/2015), Biopsy of breast, Cardiac catheterization, Cholecystectomy, EGD - Esophagogastroduodenoscopy, Gastric bypass, Ligation of fallopian tube, Suspension of bladder, VH - Vaginal hysterectomy. Medications Adipex-P 37.5 mg Tab, 37.5 mg= 1 tab(s), Oral, Daily omeprazole 20 mg Cap-DR, 20 mg= 1 cap(s), Oral, BID, PRN Allergies No Known Allergies No Known Medication Allergies Social History Alcohol - Denies Alcohol Use, 06/12 (more content not included)...[facility] CenterComment on above:Result Comment: Electronically Signed By: SARAH ALATORRE, Paramjit Hernández\Date and Time Signed: 06/23/25 16:27 EST Evaluation + Plan note Note Date & TypeNoteFacilityEvaluation + Plan note No data available for this section [facility] Hospital Discharge instructions Note Date & TypeNoteFacilityHospital Discharge instructions No data available for this section [facility] Progress note Note Date & TypeNoteFacilityProgress note No data available for this section [facility] Summary Purpose Family History No Family History Records FoundNo Family History Records Found No data available for this section No Family History Records Found Advance Directives No Advanced Directives Records FoundNo Advanced Directives Records FoundNo Advanced Directives Records Found Additional Source Comments INFORMATION SOURCE (unrecogn ized section and content) DATE CREATED AUTHOR 02/07/2018 [facility] DATE CREATED AUTHOR AUTHOR'S ORGANIZ ATION 01/18/2023 [facility] DATE CREATED AUTHOR AUTHOR'S ORGANIZ ATION 06/23/2025 [facility] Patient Care team informatio n (unrecognized section and content) Personnel Name: Richard Alvarado MD Address: Address: [address] [place] [address] FOR RECORDS PERTAINING TO PATIENTS WHO ARE [...] BE BASED ON THE PRIMARY CLINICAL RECORDS. [facility] [employer] [facility]. provides no warranty or guarantee of the accuracy or completeness of information in this document.
--- OUTSIDE RECORDS SUMMARY | 2025-07-16 07:59 | XMS_ITS | Clinical Summary ---
Author Organization [facility] Healthcare Address [address] [place] [address] Care Team Providers Care Executive Kitchen Manager Name Role Phone Shane Alvarado MD Primary Care Provider [phone] Allergies Active AllergyReactionsCriticalityNoted UhveDuavqhliCprghPmbpbrh38/04/2023 NSAIDS Qnxecqzcofu29/04/2023 LAMISIL Other Reaction(s): GI upset/nausea Medications MedicationSigDispense QuantityRefillsLast FilledStart DateEnd DateStatus cyclobenzaprine (Flexeril) 10 MG tablet as neededActive desvenlafaxine (Pristiq) 50 MG 24 hr tablet Take 1 tablet by mouth in the morning.Active escitalopram (Lexapro) 20 MG tablet Take 20 mg by mouth in the morning.08/02/2022ctive estradiol (Estrace) 1 MG tablet 1 (one) time each day at the same time.06/21/2022ctive glimepiride (Amaryl) 4 MG tablet Take 1 tablet twice a day by oral route.Active hydrALAZINE (Apresoline) 100 MG tablet Take 1 tablet twice a day by oral route.Active hydroCHLOROthiazide (HYDRODiuril) 25 MG tablet Take 1 tablet every day by oral route for 30 days.Active ibuprofen 400 MG tablet Take 1 tablet every 4 hours by oral route.Active irbesartan (Avapro) 300 MG tablet Take 1 tablet by mouth in the morning.Active lansoprazole (Prevacid) [address] capsule Take 1 capsule every day by oral route.Active meclizine (Antivert) 25 MG tablet take 1 to 2 tablets by mouth four times a day01/08/2023ctive metFORMIN (Glucophage) 500 MG tablet Take 1 tablet twice a day by oral route.Active metoprolol tartrate (Lopressor) 50 MG tablet Take 1 tablet twice a day by oral route.Active mirtazapine (Remeron) 30 MG tablet Take 30 mg by mouth at bedtime.12/21/2022ctive omeprazole (PriLOSEC) [address] capsule Take 20 mg by mouth in the morning and 20 mg before bedtime.04/18/2023ctive Pyridium 200 MG tablet every 8 (eight) hours.04/25/2023ctive phentermine (Adipex-P) 37.5 MG tablet TAKE 1 TABLET BY MOUTH ONCE DAILY FOR 30 DAYS10/11/2022ctive Ozempic, 2 MG/DOSE, 8 MG/3ML solution pen-injector 2mg Subcutaneous once weekly for 30 days03/22/2023ctive Premarin 0.625 MG tablet Indications:Asymptomatic menopausal stateTake 1 tablet (0.625 mg) by mouth 1 (one) time each day at the same time. 30 tablet ctive Social History Tobacco UseTypesPacks/DayYears UsedDateSmoking Tobacco: Never Assessed CommentsNoSex and Gender InformationValueDate RecordedSex Assigned at BirthNot on fileLegal YkmEyjyus89/15/2023 6:45 PM EDTGender IdentityNot on fileSexual OrientationNot on file Last Filed Vital Signs Vital SignReadingTime TakenCommentsBlood Jbfhpote793/7405/15/2023 11:00 AM EDT Pulse--Temperature--Respiratory Rate--Oxygen Saturation--Inhaled Oxygen Concentration--Xxemhb61.6 kg (191 lb)05/15/2023 11:00 AM PBYYjxdja547.3 cm (5' 11 )05/15/2023 11:00 AM EDTBody Mass Index26.6405/15/2023 11:00 AM EDT Plan of Treatment DateTypeDepartmentCare Team (Latest Contact Info)Qtxqhbyidxn90/05/2026 2:30 PM ESTOffice Visit NOMS James MCELROY [address] [facility] [address] [place] [address] Art Tinoco MD [address] [facility] [address] [place] [address] Health MaintenanceDue DateLast DoneCommentsCT Przbwowhkbdn1973Colonoscopy 1973Colorectal Cancer Jnavdsscw1973FIT-DNA1973FIT1973 FOBT07/18/[id number]/07/7720Jontrjoln76/07/2013COVID-19 Vaccine (2024- season)5011/04/2020, 10/05/2020Influenza Vaccine (#1)2025 Cervical Cancer Tytyiwwnc20/12/2027HPV/Fwzoso5305/23/2027Pap Smear05/23/2027 05/23/2022neumococcal Vaccine: Pediatrics (0 to 5 Years) and At-Risk Patients (6 to 64 Years)Aged OutNo longer eligible based on patient's age to complete this topic Procedures Procedure NamePriorityDate/TimeAssociated DiagnosisCommentsPAP SMEARRoutine 05/23/2022 12:00 AM EDTfrom Last 3 Months or Most Recently Relevant to Health Maintenance Results * Pap Smear (05/23/2022 12:00 AM EDT)Specimen (Source)Anatomical Location / LateralityCollection Method / VolumeCollection TimeReceived TimeSwabCervical swab / Unknown Narrative Authorizing ProviderResult TypeResult StatusHistorical Provider [facility] ORDERABLESFinal ResultPerforming OrganizationAddressCity/State/ZIP CodePhone Number EXTERNAL LAB from Last 3 Months or Most Recently Relevant to Health Maintenance Insurance Care Teams Team MemberRelationshipSpecialtyStart DateEnd Date Shane Alvarado MD [address] [place] [phone] PCP - GeneralFamily Ifhmllti69/4/23
== END 2025-07-16 07:54 | disposition home or self-care (01) ==
LOC: PST 07:53
PROVIDERS: PCP Family Medicine; Visit Provider Surgery
DX: Z01.818 Encounter for other preprocedural examination (principal); D50.9 Iron deficiency anemia, unspecified; K28.9 Gastrojejunal ulcer, unspecified as acute or chronic, without hemorrhage or perforation; Z12.11 Encounter for screening for malignant neoplasm of colon

== ENCOUNTER 2025-07-28 06:54 | Day surgery (SDC) | payer BC, SELFPAY ==
--- OUTSIDE RECORDS SUMMARY | 2020-12-23 05:00 | XMS_ITS | Continuity of Care Document ---
Author Organization [facility] Address [address] [place] [address] [place] [address] Phone Care Team Providers Care Adventure Challenge Instructor Name Role Phone Maximilian Liliane Unavailable Unavailable Procedures Procedure Date VOID TICKET Advance Directives Directive Yes / No Effective Date File Name No Information Encounters Encounter Description Practice Location Reason(s) For Visit Diagnoses Date Provider Encounter Disposition [facility] [facility], [address] [place] [address], [id number], [place] tel:[phone] [facility] No Information Maximilian Liliane. [address] [place] [address], [id number], [place]. tel:[phone], [address] [place] [address], [id number], [place] tel:[phone] [facility] No Information Maximilian Momin. [address] [place] [address], [id number], [place]. tel:[phone] [facility], [address] [place] [address], [id number], [place] tel:[phone] [facility] OP No Information Amrita Vences. [address] [place] [address], [id number], [place]. tel:[phone] [facility], [address] [place] [address], [id number], [place] tel:[phone] [facility] No Information Amrita Vences. [address] [place] [address], [place], [id number], [place]. tel:[phone] [facility], [address] [place] [address] [address], [place], [place], [id number], [place] tel:[phone] [facility] No Information Ana Jackson. [address] [facility] [address], [place], [place], [id number], [place]. tel:[phone], [address] [place] [address] [address], [place], [place], [id number], [place] tel:[phone] [facility] No Information Amrita Vences. [address] [facility] [address], [place], [place], [id number], [place]. tel:[phone] [facility], [address] [place] [address] [address], [place], [place], [id number], [place] tel:[phone] [facility] No Information Ana Jackson. [address] [facility] [address], [place], [place], [id number], [place]. tel:[phone] [facility], [address] [place] [address] [address], [facility] [place], [id number], [place] tel:[phone] [facility] No Information Ana Jackson. [address] [facility] [address], [place], [place], [id number], [place]. tel:[phone] [facility], [address] [place] [address] [address], [place], [place], [id number], [place] tel:[phone] [facility] IP No Information Ana Jackson. [address] [facility] [address], [place], [place], [id number], [place]. tel:[phone] [facility], [address] [place] [address] [address], [facility] [place], [id number], [place] tel:[phone] [facility] IP No Information Amrita Vences. [address] [place] [address] [address], [place], [place], [id number], [place]. tel:[phone] [facility], [address] [facility] [address], [place], [place], [id number], [place] tel:[phone] [facility] No Information Birdieabdoulaye Ru. [address] [facility] [address], [place], [place], [id number], [place]. tel:[phone] [facility], [address] [facility] [address], [place], [place], [id number], [place] tel:[phone] [facility] No Information Birdieabdoulaye Ru. [address] [facility] [address], [place], [place], [id number], [place]. tel:[phone] Family History Family Member Type Diagnosis Age At Onset No Information Payers Payer name Insurance type Identifiers Authorization(s) Com [facility] CI criber ID: [id number] p Name: Coverage Status Eligibility Check on: UnknownRelationship to Subscriber: selfPayer Address: [address], [id number] Phone: [phone] Social History Type Description Quantity Date Captured Comments Sex Female Smoking Status No Information Current Gender Female (finding) Chief Complaint And Reason For Visit No Information History Of Present Illness Encounter Date Complaint History Of Prese nt Illness No Information Functional Status Date Description Comments No Information Instructions Date Instruction Additional Infor mation No Information Assessments Type Assessment Date No Information
--- NOTE | 2025-07-28 | OP_ITS ---
OPERATION DATE: 07/28/2025 PREOPERATIVE DIAGNOSIS: Iron deficiency anemia, history of anastomotic ulcer after gastric bypass, colorectal screening. POSTOPERATIVE DIAGNOSIS: Hiatal hernia, as well as normal colonoscopy to cecum. PROCEDURE: EGD and colonoscopy to cecum. SURGEON: Paramjit Rowe M.D. ANESTHESIA: Monitored anesthesia care. ESTIMATED BLOOD LOSS: Zero. INDICATIONS AND CONSENT: Patient is a 49-year-old female with recent iron deficiency anemia. She does have a history of marginal ulcer after gastric bypass. She has not had a previous colonoscopy. Indications, risks, benefits, alternatives of proceeding with EGD and colonoscopy were explained extensively to the patient, including the risks of bleeding, aspiration, esophageal/gastric/jejunal or colonic perforation or anesthetic complications. All of her questions were answered. Informed consent was obtained. PROCEDURE: Patient brought to the operating room, placed in the left lateral decubitus position. Monitored anesthesia care was provided. Bite block was placed in the patient?s mouth. Scope was inserted into the oropharynx. Under direct visualization, it was advanced into the esophagus, past the cricopharyngeus, down into the gastric pouch. The gastrojejunostomy was widely patent. There was a staple noted at the area of the anastomosis. There was no ulceration or bleeding. The scope was retroflexed. There was noted to be a hiatal hernia. No other gastric mucosal abnormalities. The GE junction was noted at approximately 39 cm. There was some irregularity of the Z-line but no significant esophagitis. No Contreras?s changes. The remainder of the esophagus was unremarkable. There was a small inlet patch noted. The scope was then withdrawn. Patient was then positioned for colonoscopy. Rectal exam was performed, which showed no masses or blood. The scope was then inserted into the anal canal. Under direct visualization, it was advanced. With the aid of abdominal compression, it was advanced to the cecum where cecal markings were clearly identified. There was noted to be a good prep. Upon withdrawal of the scope, mucosal surfaces were carefully examined. There were no mass lesions or polyps. No inflammatory changes or ulcerations. No significant diverticulosis. The scope was retroflexed in the anal canal. There was no significant hemorrhoidal disease. The scope was then withdrawn. The patient tolerated procedure well, was sent to recovery room in good condition. CC: Shane Alvarado M.D. [facility] PARTNERSОльга
--- OUTSIDE RECORDS SUMMARY | 2025-07-28 07:00 | XMS_ITS | Clinical Summary ---
Author Organization [facility] Healthcare Address [address] [place] [address] Care Team Providers Care Instructional Services Librarian Name Role Phone Shane Alvarado MD Primary Care Provider [phone] Allergies Active AllergyReactionsCriticalityNoted VujsOyitjslqPiskeYawuxxz73/04/2023 NSAIDS Dzprnljfooj85/04/2023 LAMISIL Other Reaction(s): GI upset/nausea Medications MedicationSigDispense [...] InformationValueDate RecordedSex Assigned at BirthNot on fileLegal NqaCafnig65/15/2023 6:45 PM EDTGender IdentityNot on fileSexual OrientationNot on file Last Filed Vital Signs Vital SignReadingTime TakenCommentsBlood Wvfxowhv790/7405/15/2023 11:00 AM EDT Pulse--Temperature--Respiratory Rate--Oxygen Saturation--Inhaled Oxygen Concentration--Ywlthc45.6 kg (191 lb)05/15/2023 11:00 AM VMSWhfhij878.3 cm (5' 11 )05/15/2023 11:00 AM EDTBody Mass Index26.6405/15/2023 11:00 AM EDT Plan of Treatment DateTypeDepartmentCare Team (Latest Contact Info)Ulfxpgatydb52/05/2026 2:30 PM ESTOffice Visit NOMS [place] MCELROY [address] [facility] [address] [place] [address] Art Tinoco MD [address] [facility] [address] [place] [address] Health MaintenanceDue DateLast DoneCommentsCT Kbkpecooicok1973Colonoscopy 1973Colorectal Cancer Clhvwflqe1973FIT-DNA1973FIT1973 FOBT07/18/[id number]/07/1982Yhazvjqif72/07/2013COVID-19 Vaccine (2024- season)5011/04/2020, 10/05/2020Influenza Vaccine (#1)2025 Cervical Cancer Mqkihqqtz94/12/2027HPV/Upoqte5905/23/2027Pap Smear05/23/2027 05/23/2022neumococcal Vaccine: Pediatrics (0 to 5 [...] DateEnd Date Shane Alvarado MD [address] [place] [address] PCP - GeneralFamily Ibracsen25/4/23
--- OUTSIDE RECORDS SUMMARY | 2025-07-28 07:00 | XMS_ITS | Patient Health Record ---
Author Organization [facility] in [place] Address [address] [place] [address] Care Team Providers Care Ergonomic Specialist Name Role Phone Anthony Alvarado Primary Care Provider Allergies No Known Allergies Results Component Value Reference Range Notes CBC AUTO DIFF Reviewed date:05/21/2025 08:46:29 AM Interpretation: Performing Lab: Notes/Report: [facility] , White Blood Count 7.4 4.0-11.0 10 3/uL Red Blood Count4.674.20-5.40 10 6/dMJkoxjvgnsq04.512.0-16.0 g/oVJaotzmyoob56.4 36.0-48.0 %Mean Corpuscular Mkvfdu73.881.0-99.0 fLMean Corpuscular Hemoglobin 22.526.7-34.0 pgMean Corpuscular HGB Conc29.729.9-35.2 g/dLRed Cell Distribution Width14.911.0-15.0 %Platelet Gonem870215-177 10 3/uLMean Platelet Volume8.89.5- 13.5 fLNeutrophils Percent Auto60.943.0-75.0 %Lymphocytes Percent Auto28.820.5- 60.0 %Monocytes Percent Auto8.71.7-12.0 %Eosinophils Percent Auto1.00.9-7.0 % Basophils Percent Auto0.50.2-2.0 %Immature Granulocytes Pct Auto0.10.0-0.5 % Neutrophils Absolute Auto4.51.4-6.5 10 3/uLLymphocytes Absolute Auto2.11.2-3.8 10 3/uLMonocytes Absolute Auto0.60.3-0.8 10 3/uLEosinophils Absolute Auto0.10.0- 0.7 10 3/uLBasophils Absolute Auto0.00.0-0.1 10 3/uLImmature Granulocytes Abs Auto0.010.00-0.03 10 3/uLPerforming Lab:see noteML - [facility] LBTSH Reviewed date:05/21/2025 11:58:04 AM Interpretation: Performing Lab: Notes/Report: [facility] ,Thyroid Stimulating Hormone3.0120.358-3.740 uIU/mLPerforming Lab:see noteML - [facility] LBT4 Reviewed date:05/21/2025 11:58:03 AM Interpretation: Performing Lab: Notes/Report: [facility] ,T4 Thyroxine8.104.80-13.90 ug/dLPerforming Lab:see noteML - [facility] LBPROF 14(COMP METB) Reviewed date:05/21/2025 11:58:03 AM Interpretation: Performing Lab: Notes/Report: [facility] ,Nityos953105-559 mmol/LPotassium3.83.5-5.1 mmol/VRltyopli16879-068 mmol/LCarbon Fuqoese71.621.0-32.0 mmol/LAnion Gap13.0Uxjvsvs4743-625 mg/dLBlood Urea Nitrogen 13.07.0-18.0 mg/dLCreatinine0.530.55-1.02 mg/dLEstimated GFR ( Kavitha>60 >=60 mL/min/1.73m 2Estimated GFR (Non- Francisca>60>=60 mL/min/1.73m 2BUN Creatinine Ratio24.6Zbssssp6.98.5-10.1 mg/dLBilirubin Total0.50.2-1.0 mg/dL Aspartate Amino Eplofgslseg8863-12 U/LAlanine Lhmckcqovbokpghb8524-60 U/L Alkaline Yfnlkhycqqr32681-749 U/LTotal Protein8.06.4-8.2 g/dLAlbumin Level3.8 3.4-5.0 g/dLGlobulin4.2Albumin Globulin Ratio0.9Performing Lab:see noteML - [facility] LBFREE T3 Reviewed date:05/21/2025 11:58:03 AM Interpretation: Performing Lab: Notes/Report: [facility] ,Free T32.582.18-3.98 pg/mLPerforming Lab:see noteML - [facility] LB MAGNESIUM Reviewed date:05/21/2025 11:58:04 AM Interpretation: Performing Lab: Notes/Report: [facility] ,Magnesium2.31.8-2.4 mg/dLPerforming Lab:see noteML - [facility] LB LIPID PROFILE Reviewed date:05/21/2025 11:58:04 AM Interpretation: Performing Lab: Notes/Report: [facility] ,Zaoaesvlrwzon37<=150 mg/oUPbdeeimhnoh401<=200 mg/dLHDL Xfctocgltlz0192-07 mg/dL > or =60 mg/dl - LOW CARDIOVASCULAR RISK <40 mg/dl - HIGH CARDIOVASCULAR RISK LDL Cholesterol Uhuchxdvhj20.0 100-129 mg/dl NEAR OR ABOVE OPTIMAL >190 mg/dl VERY HIGH 160-189 mg/dl HIGH 130-159 mg/dl BORDERLINE HIGH <100 mg/dl OPTIMAL VLDL YYXJWJKTTTP23.2Chol HDL Ratio2.5 4.4 - 7.1 AVERAGE RISK 7.1 - 11.0 MODERATE RISK 3.3 - 4.4 LOW RISK >11.0 HIGH RISK Performing Lab:see noteML - [facility] LBIRON Reviewed date:05/21/2025 11:58:04 AM Interpretation: Performing Lab: Notes/Report: [facility] ,Iron32.050.0-170.0 ug/dLPerforming Lab:see noteML - [facility] LB GLYCOHEMOGLOBIN A1C Reviewed date:05/21/2025 11:58:04 AM Interpretation: Performing Lab: Notes/Report: [facility] ,Glycohemoglobin A1C5.94.5-6.2 % ADA THERAPEUTIC TARGET < 7.0 ACTION SUGGESTED ADA RECOMMENDED LIMIT 4.0 - 6.0 > 7.0 Estimated Average Dwhjiog980Qtbkaxagai Lab:see noteML - [facility] LB FERRITIN Reviewed date:05/22/2025 01:12:12 PM Interpretation: Performing Lab: Notes/Report: [facility] ,Ferritin5.08.0-252.0 ng/mLPerforming Lab:see [facility] LB GLYCOHEMOGLOBIN A1C Reviewed date:10/06/2024 04:20:36 PM Interpretation: Performing Lab: Notes/Report: [facility] ,Glycohemoglobin A1C5.34.5-6.2 % ADA THERAPEUTIC TARGET < 7.0 ADA RECOMMENDED LIMIT 4.0 - 6.0 ACTION SUGGESTED > 7.0 Estimated Average Xpcxcfd155Bgokhetsjt [facility] LB VITAMIN D 25 [place] Reviewed date:05/22/2025 01:12:12 PM Interpretation: Performing Lab: Notes/Report: [facility] ,Vitamin D25.5 <20 ng/mL Vit D deficient >100 ng/mL Potential Toxicity 20-<30 ng/mL Vit D insufficient 30-100 ng/mL Vit D sufficient Performing Lab:see [facility] ([facility]), Serum Reviewed date:05/22/2025 01:12:12 PM Interpretation: Performing Lab: Notes/Report: [facility] ,Folate (Folic Acid), Serum15.5>3.0 ng/mL [address] [place] [phone] A serum folate concentration of less than 3.1 ng/mL is Performed at: [facility] considered to represent clinical deficiency. Jacker Feeder: Biju Verdin PhD, Phone: [phone] Performing Lab[facility]12 Reviewed date:05/22/2025 01:12:12 PM Interpretation: Performing Lab: Notes/Report: [facility] ,Vitamin T31660262-1657 pg/mL Performed at: [facility] Jacker Feeder: Biju Verdin PhD, Phone: [phone] [address] [place], [place] [phone] Performing Lab:see [facility] LB Reason For Referral Diagnosis 1 Iron deficiency anem ia (D50.9) Referral Organization [facility] Referring Provider First Name Anthony Referring Provider Last Name Jenny Referring Provider Speciality Family Med selena Referred Provider Paramjit Rowe Referred Provider Specialty General Surg lay Referral Priority Routine Medications Medication SIG (Take, Route, Frequency, Duration) Notes Start Date End Date Status Adipex-P 37.5 MG 1 tablet before breakfast Orall y Once a day 5ActiveMetoprolol Tartrate 50 MG1 tablet with food Orally Twice a day; Duration: 30 daysNot-TakingOmeprazole 20 MGtake 1 capsule by mouth twice a day; Duration: 30 daysPRNActive Social History Tobacco Use: Social History Observation Description Date Details (start date - stop date) Never Smoker NA - NA Tobacco Use/Smoking Question Answer Notes Patient is a nonsmoker AUDIT-C (Standard) Question Answer Notes Did you have a drink containing alcohol in the p ast year? Yes How often did you have six or more drinks on one occasion in the past year?Never (0 point)How many drinks did you have on a typical day when you were drinking in the past year?3 or 4 drinks (1 point)How often did you have a drink containing alcohol in the past year?Monthly or less (1 point)Iiydnd2KhanvpsmcdpneuGbnikyhg Problems Problem Type SNOMED Code ICD Code Onset Dates Problem Status W/U Status Risk Notes Problem Candidiasis of skin and nail (B37.2)ActiveconfirmedProblemDisorder of pituitary gland (454472564)Other disorders of pituitary gland (E23.6)Activeconfirmed ProblemInsomnia (577321568)Insomnia, unspecified (G47.00)ActiveconfirmedProblem Peripheral vertigo (49958950)Other peripheral vertigo, unspecified ear (H81.399) ActiveconfirmedProblemAcute frontal sinusitis (30083074)Acute recurrent frontal sinusitis (J01.11)ActiveconfirmedProblemPilar cyst (413643276)Pilar cyst (L72.11)ActiveconfirmedProblemUrinary tract infectious disease (disorder) (97674524)Urinary tract infection, site not specified (N39.0)Activeconfirmed ProblemExposure to communicable disease (644534966)Contact with and (suspected) exposure to other viral communicable diseases (Z20.828)ActiveconfirmedProblem History of urinary disease (553876260)Personal history of other diseases of urinary system (Z87.448)ActiveconfirmedProblemChest pain (97018524)Chest pain (R07.9)ActiveconfirmedProblemFatigue (36393106)Fatigue (R53.83)Activeconfirmed ProblemEdema (25327844)Edema (R60.9)ActiveconfirmedProblemDyspnea (239802808) Dyspnea (R06.00)ActiveconfirmedProblemVertigo (019426841)Vertigo (R42)Active confirmedProblemWell adult (230085793)Well adult (Z00.00)ActiveconfirmedProblem Iron deficiency anemia (23768535)Iron deficiency anemia (D50.9)Activeconfirmed ProblemTension headache (284530844)Tension headache (G44.209)Activeconfirmed ProblemOverweight (654639946)Over weight (E66.3)ActiveconfirmedProblemVitamin B deficiency (11985514)Vitamin B deficiency (E53.9)ActiveconfirmedProblemPain in wrist (92451518)Wrist pain, left (M25.532)ActiveconfirmedProblemCarpal tunnel syndrome (69130833)Carpal tunnel syndrome, left (G56.02)ActiveconfirmedProblem Ankle edema (37930439)Ankle edema (R60.0)ActiveconfirmedProblemVaginal dryness (03775756)Vaginal dryness, menopausal (N95.1)ActiveconfirmedProblemBody mass index 30+ - obesity (952117518)BMI 30.0-30.9,adult (Z68.30)Activeconfirmed ProblemEpidermoid cyst of skin (566615565)Inflamed sebaceous cyst (L72.3)Active confirmedProblemPolycystic ovary syndrome (disorder) (929758534)Polycystic ovaries (E28.2)ActiveconfirmedProblemStreptococcal sore throat (24842312) Pharyngitis, streptococcal (J02.0)ActiveconfirmedProblemEssential hypertension (10296105)Essential Hypertension (I10)ActiveconfirmedProblemLocalized obesity (029716286)Adiposity, localized (E65)ActiveconfirmedProblemPostprocedural intestinal obstruction, unspecified as to partial versus complete (K91.30)Active confirmedProblemDiabetes mellitus (58839196)Diabetes mellitus (E11.9)Active confirmedProblemCOVID-19 (631982817)COVID-19 (U07.1)ActiveconfirmedProblem Esophagitis (28051611)Esophagitis (K20.90)Activeconfirmed Vital Signs Blood pressure diastolic 88 mm Hg 06/23/2025 Zmveua99 in06/23/2025lood pressure lnozvdhx982 mm Hg06/23/20252532Jatiyc908.4 lbs 06/23/2025BMI29.76 kg/m206/23/2025 Procedures Procedure Date Ordered Date Performed Result Body Sit e CARDIO Stress Test - Cardiolite 08/20/2024 N/AEKG w Interp & Report - dimdhofyz82/09/2025N/A Encounters Encounter Location Date Provider Diagnosis [address] [address] 07/31/2024 Anthony Hoy Essential Hypertensi on I10 and Encounter for medication management Z79.[address] [address] 08/20/2024 Anthony Hoy Chest pain R07.[address] [address] 05/21/2025 Anthony Hoy Fatigue R53.83 and Diabetes mellitus E11.[address] [address] 06/23/2025 Anthony Hoy Essential Hypertensi on I10 [address] [address] 08/20/2024 Anthony Hoy [address] [address] 10/06/2024Doug HoyChest pain R07.9 and Diabetes mellitus E11.9B[address] [address]/09/2025Doug Hoy Status post gastric surgery Z98.890 ; Wellness examination Z01.89 and [facility] for [facility] [place] [address]/10/2025Doug HoyIron deficiency anemia D50.9[facility] [place] [address]/11/2025 Anthony Alvarado Assessments Encounter Date Diagnosis (ICD Code) Assessment Notes Treatment Notes Treatment Clinical Notes Section Notes 07/31/2024 Essential Hypertension (ICD-10 - I10) 07/31/2024Encounter for medication management (ICD-10 - Z79.899)08/20/2024hest pain (ICD-10 - R07.9)05/21/2025Fatigue (ICD-10 - R53.83)05/21/2025Diabetes mellitus (ICD-10 - E11.9)06/23/2025Essential Hypertension (ICD-10 - I10) 10/06/2024hest pain (ICD-10 - R07.9)05/20/2025Status post gastric surgery (ICD- 10 - Z98.890)05/21/2025Iron deficiency anemia (ICD-10 - D50.9)05/20/2025Wellness examination (ICD-10 - Z01.89)10/06/2024Diabetes mellitus (ICD-10 - E11.9) 05/20/2025Screening for colon cancer (ICD-10 - Z12.11) Plan Of Treatment Pending Test Test Name Order Date US Lower Extremity RT 08/09/2023 EKG w Interp & Report - performed 2024 CARDIO Stress Test - Cardiolite 08/20/19 25 FOLATE 05/20/2025 CBC 05/20/2025 FECAL OCCULT BLOOD 05/20/2025 CMP - Comprehensive Metabolic Panel 04/2025 VITAMIN B12 05/20/2025 US KIDNEYS BLADDER 06/11/2023 THYROID PANEL (T4/TSH/FREE T3) Vitamin D 05/20/2025 Insurance Providers Payer Name Payer Address Payer Phone Subscriber Number Group Number Insured Name Patient Relationship to Insured Coverage Start Date Coverage End Date [employer] PPO PLUS LOCAL PLAN [address] [place] [address] [id number] Adwoa Castro Self - patient is the insured 5 [employer] ACC[employer] PPO PLUS [facility] [address] [place] [address] [id number], CharlesSpouse - patient is the spouse of the [id number] 2024 Medications Administered Medication Instructions Date of Administration Dosage Notes Dexamethasone, 4mg/mL 2 mg12 mg Medical (General) History Medical History History ICD Code Over weight E66.3 Well adult Z00.00 BMI 30.0-30.9,adult Z68.30 Personal history of other diseases of ur inary system Z87.448 COVID-19 U07.1 Contact with and (suspected) exposure to other viral communicable diseases Z20.828 Postprocedural intestinal ob struction, unspecified as to partial versus complete K91.30 Esophagitis K20.90 Acute recurrent frontal sinusitis J01.11 Adiposity, localized E65 Fatigue R53.83 Essential Hypertension I10 Polycystic ovaries E28.2 Other disorders of pituitary gland E23.6 Tension headache G44.209 Diabetes mellitus E11.9 Inflamed sebaceous cyst L72.3 Pilar cyst L72.11 Other peripheral vertigo, unspecified ea r H81.399 Ankle edema R60.0 Chest pain R07.9 Dyspnea R06.00 Pharyngitis, streptococcal J02.0 Vitamin B deficiency E53.9 Carpal tunnel syndrome, left G56.02 Wrist pain, left M25.532 Candidiasis of skin and nail B37.2 Surgical History Surgery Date(Month/Year) ladder suspension with sling Left Breast BiopsyGastric Bypass SurgeryCardiac CathTubalHysterectomyGall Bladder RemovalEGD
--- OUTSIDE RECORDS SUMMARY | 2025-07-28 07:00 | XMS_ITS | Clinical Summary ---
Author Organization [facility] tem Address [id number] [address] [place] [address] Care Team Providers Care Business Services Sales Agent Name Role Phone Shane Alvarado MD Primary Care Provider [phone] Allergies No known active allergies Medications No known medications Social History Tobacco UseTypesPacks/DayYears UsedDateSmoking Tobacco: NeverSmokeless Tobacco: NeverAlcohol UseStandard Drinks/WeekCommentsNot Currently0 (1 standard drink = 0.6 oz pure alcohol)ChildcareAnswerDate FpbugvdsLvketgifpFoodmlu40/12/2019 EmploymentAnswerDate DkbgulioBrintfhbjaEserknp70/12/2019Purpose - LifeAnswerDate RecordedPurpose and direction in msgdVujckut57/11/2021CommentsNoSex and Gender InformationValueDate RecordedSex Assigned at BirthNot on fileLegal Sex Rzkmzo8803/17/2015 11:54 AM EDTGender IdentityNot on fileSexual OrientationNot on file Last Filed Vital Signs Vital SignReadingTime TakenCommentsBlood Dxiwivnm004/8808 8:31 PM EDT Zowis3397 8:31 PM OYOFzkkikpwqat02.1 ??C (98.7 ??F)03/21/2022 5:09 PM EDTRespiratory Xvwg523903/21/2022 8:31 PM EDTOxygen Hvprmnmawe26%03/21/2022 8:31 PM EDTInhaled Oxygen Concentration--Zjveby20.5 kg (215 lb)03/21/2022 5:09 PM EDT Nkrqbn551.3 cm (5' 11 )03/21/2022 5:09 PM EDTBody Mass Index29.9903/21/2022 5:09 PM EDT Plan of Treatment Health MaintenanceDue DateLast DoneCommentsDepression Xeuiurzzm45/07/1985Tobacco Zkijyeqxh90/07/1985Adult BMI Zmgngaglo90/07/1991DTaP,Tdap and Td Vaccines (1 - Tdap)1992Pap Smear1994Zoster (Shingles) Vaccine (1 of 2)2023 COVID-19 Vaccine (3 - 2024- season)503/, 10/05/2020Influenza Tlpdhpo8404/12/2025 Medical Devices Not on file Insurance Care Teams Team MemberRelationshipSpecialtyStart DateEnd Shane Alvarado MD [facility]05/15/17
[2025-07-28 07:01] VITALS: BP 154/87; PULSE 77; TEMP 36.1; O2SAT 97; BMI 29.7
[2025-07-28 09:06] VITALS: BP 130/90; PULSE 66; TEMP 36.1; O2SAT 98
[2025-07-28 09:20] VITALS: BP 130/90; PULSE 70; O2SAT 98
[2025-07-28 09:36] VITALS: BP 137/95; PULSE 68; O2SAT 99
== END 2025-07-28 09:40 | disposition home or self-care (01) ==
LOC: SURGOUT 06:57
PROVIDERS: PCP Family Medicine; Visit Provider Surgery
PROC: (CPT 813; principal; 2025-07-28 08:25)
DX: D50.9 Iron deficiency anemia, unspecified (principal); Z12.11 Encounter for screening for malignant neoplasm of colon; Z98.84 Bariatric surgery status; K44.9 Diaphragmatic hernia without obstruction or gangrene; K28.9 Gastrojejunal ulcer, unspecified as acute or chronic, without hemorrhage or perforation; I10 Essential (primary) hypertension; E28.2 Polycystic ovarian syndrome; Z90.49 Acquired absence of other specified parts of digestive tract; Z98.51 Tubal ligation status; Z90.710 Acquired absence of both cervix and uterus; K21.9 Gastro-esophageal reflux disease without esophagitis; F41.9 Anxiety disorder, unspecified
CPT/HCPCS: 43235; 45378; 36415; 82948; J1100; J2003; J2405; J2704

== ENCOUNTER 2025-08-03 09:41 | Outpatient (OUT) | payer BC, SELFPAY ==
--- OUTSIDE RECORDS SUMMARY | 2025-08-03 09:46 | XMS_ITS | Clinical Summary ---
Author Organization [facility] Address [address] [place] [address] Care Team Providers Care Derrick Worker Well Service Name Role Phone Shane Alvarado MD Primary Care Provider [phone] Allergies Active AllergyReactionsCriticalityNoted EyobOjkglgvsXfzecEsssrgo92/04/2023 NSAIDS Dtfnsesnyuw78/04/2023 LAMISIL Other Reaction(s): GI upset/nausea Medications MedicationSigDispense [...] InformationValueDate RecordedSex Assigned at BirthNot on fileLegal SxvBavdah96/15/2023 6:45 PM EDTGender IdentityNot on fileSexual OrientationNot on file Last Filed Vital Signs Vital SignReadingTime TakenCommentsBlood Knuvgbbe727/7405/15/2023 11:00 AM EDT Pulse--Temperature--Respiratory Rate--Oxygen Saturation--Inhaled Oxygen Concentration--Nrnese92.6 kg (191 lb)05/15/2023 11:00 AM ZOKNygkat992.3 cm (5' 11 )05/15/2023 11:00 AM EDTBody Mass Index26.6405/15/2023 11:00 AM EDT Plan of Treatment DateTypeDepartmentCare Team (Latest Contact Info)Xsoohllwybf83/05/2026 2:30 PM ESTOffice Visit [facility] [place] [address] [facility] [address] [place] [address] Art Tinoco MD [address] [facility] [address] [place] [address] Encounter for gynecological examination without abnormal finding; Encounter for screening for cervical cancer; Encounter for screening mammogram for malignant neoplasm of breastHealth MaintenanceDue DateLast DoneCommentsCT Exqlfnbjoyqh1973Colonoscopy 1973Colorectal Cancer Zynsmkieo1973FIT-DNA1973FIT1973 FOBT07/18/19736006Twswgjibilytf06/07/5590Rebicotsp84/07/2013Influenza Vaccine (#1) 5Cervical Cancer Edmqrewqz91/12/2027HPV/Mkuury5705/23/2027Pap Smear 2Pneumococcal Vaccine: Pediatrics (0 to 5 Years) and [...] DateEnd Date Shane Alvarado MD [address] [place] [address] PCP - GeneralFamily Qggteihx31/4/23
--- OUTSIDE RECORDS SUMMARY | 2025-08-03 09:46 | XMS_ITS | Patient Health Record ---
Author Organization The [facility] in [place] Address [address] [place] [address] Care Team Providers Care Nuclear Equipment Research Engineer Name Role Phone Anthony Alvarado Primary Care Provider Allergies No Known Allergies Results Component Value Reference Range Notes GLYCOHEMOGLOBIN A1C Reviewed date:10/06/2024 04:20:36 PM Interpretation: Performing Lab: Notes/Report: [facility] , Glycohemoglobin A1C 5.3 4.5-6.2 % ADA THERAPEUTIC TARGET < 7.0 ADA RECOMMENDED LIMIT 4.0 - 6.0 ACTION SUGGESTED > 7.0 Estimated Average Glucose 105 Performing Lab:see note - [facility] LBFERRITIN Reviewed date:05/22/2025 01:12:12 PM Interpretation: Performing Lab: Notes/Report: [facility] ,Ferritin5.08.0-252.0 ng/mLPerforming Lab:see noteML - [facility] LB IRON Reviewed date:05/21/2025 11:58:04 AM Interpretation: Performing Lab: Notes/Report: [facility] ,Iron32.050.0-170.0 ug/dLPerforming Lab:see noteML - [facility] LB MAGNESIUM Reviewed date:05/21/2025 11:58:04 AM Interpretation: Performing Lab: Notes/Report: [facility] ,Magnesium2.31.8-2.4 mg/dLPerforming Lab:see note - [facility] LB CBC AUTO DIFF Reviewed date:05/21/2025 08:46:29 AM Interpretation: Performing Lab: Notes/Report: [facility] ,White Blood Count7.44.0-11.0 10 3/uLRed Blood Count4.674.20-5.40 10 6/uL Xvsdkbeiok46.512.0-16.0 g/iPXnbhypfohu61.436.0-48.0 %Mean Corpuscular Ufdwbq24.8 81.0-99.0 fLMean Corpuscular Xmgkovohru85.526.7-34.0 pgMean Corpuscular HGB Conc 29.729.9-35.2 g/dLRed Cell Distribution Width14.911.0-15.0 %Platelet Rrwow958 150-450 10 3/uLMean Platelet Volume8.89.5-13.5 fLNeutrophils Percent Auto60.9 43.0-75.0 %Lymphocytes Percent Auto28.820.5-60.0 %Monocytes Percent Auto8.71.7- 12.0 %Eosinophils Percent Auto1.00.9-7.0 %Basophils Percent Auto0.50.2-2.0 % Immature Granulocytes Pct Auto0.10.0-0.5 %Neutrophils Absolute Auto4.51.4-6.5 10 3/uLLymphocytes Absolute Auto2.11.2-3.8 10 3/uLMonocytes Absolute Auto0.60.3-0.8 10 3/uLEosinophils Absolute Auto0.10.0-0.7 10 3/uLBasophils Absolute Auto0.00.0- 0.1 10 3/uLImmature Granulocytes Abs Auto0.010.00-0.03 10 3/uLPerforming Lab:see noteML - [facility] LBVITAMIN D 25 [place] Reviewed date:05/22/2025 01:12:12 PM Interpretation: Performing Lab: Notes/Report: [facility] ,Vitamin D25.5 <20 ng/mL Vit D deficient >100 ng/mL Potential Toxicity 20-<30 ng/mL Vit D insufficient 30-100 ng/mL Vit D sufficient Performing Lab:see noteML - [facility] LBVitamin B12 Reviewed date:05/22/2025 01:12:12 PM Interpretation: Performing Lab: Notes/Report: Andrew ,Vitamin V08259025-7344 pg/mL Performed at: [facility] Glass Deposition Tender: Biju Verdin PhD, Phone: [phone] [address], [place] [phone] Performing Lab:[facility] LBFolate (Folic Acid), Serum Reviewed date:05/22/2025 01:12:12 PM Interpretation: Performing Lab: Notes/Report: [facility] ,Folate (Folic Acid), Serum15.5>3.0 ng/mL [address] [place] [phone] A serum folate concentration of less than 3.1 ng/mL is Performed at: [facility] considered to represent clinical deficiency. Glass Deposition Tender: Biju Verdin PhD, Phone: [phone] Performing Lab:[facility] LBLIPID PROFILE Reviewed date:05/21/2025 11:58:04 AM Interpretation: Performing Lab: Notes/Report: [facility] ,Ogbqmoknsggtm09<=150 mg/cMJyjoxnduyss903<=200 mg/dLHDL Apxfpizwgvn4031-43 mg/dL > or =60 mg/dl - LOW CARDIOVASCULAR RISK <40 mg/dl - HIGH CARDIOVASCULAR RISK LDL Cholesterol Dyauefoqkk48.0 100-129 mg/dl NEAR OR ABOVE OPTIMAL >190 mg/dl VERY HIGH 160-189 mg/dl HIGH 130-159 mg/dl BORDERLINE HIGH <100 mg/dl OPTIMAL VLDL DFXITDVUUBF83.2Chol HDL Ratio2.5 4.4 - 7.1 AVERAGE RISK 7.1 - 11.0 MODERATE RISK 3.3 - 4.4 LOW RISK >11.0 HIGH RISK Performing Lab:see note - [facility] LBGLYCOHEMOGLOBIN A1C Reviewed date:05/21/2025 11:58:04 AM Interpretation: Performing Lab: Notes/Report: [facility] ,Glycohemoglobin A1C5.94.5-6.2 % ADA THERAPEUTIC TARGET < 7.0 ACTION SUGGESTED ADA RECOMMENDED LIMIT 4.0 - 6.0 > 7.0 Estimated Average Fykdbyr526Xalneegsoa Lab:see noteML - [facility] LB TSH Reviewed date:05/21/2025 11:58:04 AM Interpretation: Performing Lab: Notes/Report: [facility] ,Thyroid Stimulating Hormone3.0120.358-3.740 uIU/mLPerforming Lab:see noteML - [facility] LBT4 Reviewed date:05/21/2025 11:58:03 AM Interpretation: Performing Lab: Notes/Report: [facility] ,T4 Thyroxine8.104.80-13.90 ug/dLPerforming Lab:see note - [facility] LBPROF 14(COMP METB) Reviewed date:05/21/2025 11:58:03 AM Interpretation: Performing Lab: Notes/Report: [facility] ,Obaumo550673-776 mmol/LPotassium3.83.5-5.1 mmol/YTcgjumhk69898-355 mmol/LCarbon Zofipfv90.621.0-32.0 mmol/LAnion Gap13.9Coyxbdf9597-219 mg/dLBlood Urea Nitrogen 13.07.0-18.0 mg/dLCreatinine0.530.55-1.02 mg/dLEstimated GFR ( Kavitha>60 >=60 mL/min/1.73m 2Estimated GFR (Non- Francisca>60>=60 mL/min/1.73m 2BUN Creatinine Ratio24.4Choffvp7.98.5-10.1 mg/dLBilirubin Total0.50.2-1.0 mg/dL Aspartate Amino Kfgqceqlnbi7596-01 U/LAlanine Weijzdaknyfkkjyn5637-22 U/L Alkaline Amcacrjouyp83310-838 U/LTotal Protein8.06.4-8.2 g/dLAlbumin Level3.8 3.4-5.0 g/dLGlobulin4.2Albumin Globulin Ratio0.9Performing Lab:see noteML - [facility] LBFREE T3 Reviewed date:05/21/2025 11:58:03 AM Interpretation: Performing Lab: Notes/Report: [facility] ,Free T32.582.18-3.98 pg/mLPerforming Lab:see noteML - [facility] LB Reason For Referral Diagnosis 1 Iron deficiency anem ia (D50.9) Referral Organization [facility] Referring Provider First Name Anthony Referring Provider Last Name Jenny Referring Provider Speciality Family Med [place] Referred Provider Paramjit Rowe Referred Provider Specialty General Surg lay Referral Priority Routine Medications Medication SIG (Take, Route, Frequency, Duration) Notes Start Date End Date Status Omeprazole 20 MG take 1 capsule by mouth twice a day; Duration: 30 days PRN ActiveCeleBREX 100 MG1 capsule Orally Once a day; Duration: 30 day(s)08/03/2025 ActiveMetoprolol Tartrate 50 MG1 tablet with food Orally Twice a day; Duration: 30 daysActiveAdipex-P 37.5 MG1 tablet before breakfast Orally Once a day 5Active Social History Tobacco Use: Social History Observation Description Date Details (start date - stop date) Never Smoker NA - NA Tobacco Use/Smoking Question Answer Notes Patient is a nonsmoker Alcohol Screen (Audit-C) Question Answer Notes Did you have a drink containing alcohol in the p ast year? No Zibegc6IljrwxxyvtegpvBifubjusBEPRQ-K (Standard) Question Answer Notes Did you have [...] in the past year?Monthly or less (1 point)Uxzycg9UvzlyfepohzurpWrtjrqmc Problems Problem Type SNOMED Code ICD Code Onset Dates Problem Status W/U Status Risk Notes Problem Candidiasis of skin and nail (B37.2)ActiveconfirmedProblemDisorder of pituitary gland (537849792)Other disorders of pituitary gland (E23.6)Activeconfirmed ProblemInsomnia (693932985)Insomnia, unspecified (G47.00)ActiveconfirmedProblem Peripheral vertigo (13034536)Other peripheral vertigo, unspecified ear (H81.399) ActiveconfirmedProblemAcute frontal sinusitis (49849171)Acute recurrent frontal sinusitis (J01.11)ActiveconfirmedProblemPilar cyst (877632913)Pilar cyst (L72.11)ActiveconfirmedProblemUrinary tract infectious disease (disorder) (05906953)Urinary tract infection, site not specified (N39.0)Activeconfirmed ProblemExposure to communicable disease (538384136)Contact with and (suspected) exposure to other viral communicable diseases (Z20.828)ActiveconfirmedProblem History of urinary disease (644886495)Personal history of other diseases of urinary system (Z87.448)ActiveconfirmedProblemChest pain (87526134)Chest pain (R07.9)ActiveconfirmedProblemFatigue (36968883)Fatigue (R53.83)Activeconfirmed ProblemEdema (87919825)Edema (R60.9)ActiveconfirmedProblemDyspnea (538104691) Dyspnea (R06.00)ActiveconfirmedProblemVertigo (020370134)Vertigo (R42)Active confirmedProblemWell adult (342163092)Well adult (Z00.00)ActiveconfirmedProblem Iron deficiency anemia (08397322)Iron deficiency anemia (D50.9)Activeconfirmed ProblemTension headache (044719874)Tension headache (G44.209)Activeconfirmed ProblemOverweight (200993165)Over weight (E66.3)ActiveconfirmedProblemVitamin B deficiency (48269261)Vitamin B deficiency (E53.9)ActiveconfirmedProblemPain in wrist (48682608)Wrist pain, left (M25.532)ActiveconfirmedProblemCarpal tunnel syndrome (05776651)Carpal tunnel syndrome, left (G56.02)ActiveconfirmedProblem Ankle edema (94540752)Ankle edema (R60.0)ActiveconfirmedProblemVaginal dryness (26592551)Vaginal dryness, menopausal (N95.1)ActiveconfirmedProblemBody mass index 30+ - obesity (239967344)BMI 30.0-30.9,adult (Z68.30)Activeconfirmed ProblemEpidermoid cyst of skin (858569288)Inflamed sebaceous cyst (L72.3)Active confirmedProblemPolycystic ovary syndrome (disorder) (907896829)Polycystic ovaries (E28.2)ActiveconfirmedProblemStreptococcal sore throat (49969532) Pharyngitis, streptococcal (J02.0)ActiveconfirmedProblemEssential hypertension (22564320)Essential Hypertension (I10)ActiveconfirmedProblemLocalized obesity (662720796)Adiposity, localized (E65)ActiveconfirmedProblemPostprocedural intestinal obstruction, unspecified as to partial versus complete (K91.30)Active confirmedProblemDiabetes mellitus (48018192)Diabetes mellitus (E11.9)Active confirmedProblemCOVID-19 (940108900)COVID-19 (U07.1)ActiveconfirmedProblem Esophagitis (37134052)Esophagitis (K20.90)Activeconfirmed Vital Signs Blood pressure diastolic 62 mm Hg 08/03/2025 Scpqlj26 in08/03/2025lood pressure mm Hg08/03/20257723Eyquau717.2 lbs 08/03/2025BMI29.03 kg/m208/03/2025 Procedures Procedure Date Ordered Date Performed Result Body Sit e EKG w Interp & Report - performed 08/20/2024 N/ACARDIO Stress Test - Zlczvcskzu87/09/2025N/A Encounters Encounter Location Date Provider Diagnosis [facility] [address] [place] [address] 08/20/2024 Anthony Hoy Chest pain R07.9 [facility] [address] [place] [address] 05/21/2025 Anthony Hoy Fatigue R53.83 and Diabetes mellitus E11.9 [facility] [address] [place] [address] 06/23/2025 Anthony Hoy Essential Hypertensi on I10 [facility] [address] [place] [address] 08/03/2025 Anthony Hoy Over weight E66.3 an d Essential Hypertension I10 [facility] [address] [place] [address] 08/20/2024 Anthony Hoy [facility] [place] [address] 10/06/2024Doug HoyChest pain R07.9 [facility] [place] [address]/09/2025Doug Hoy Status post gastric surgery Z98.890 ; Wellness examination Z01.89 and [facility] for [facility] [place] [address]/05/2025Doug HoyIron deficiency anemia D50.9[facility] [place] [address]/06/20[facility] [place] [address]/Doug Hoy Assessments Encounter Date Diagnosis (ICD Code) Assessment Notes Treatment Notes Treatment Clinical Notes Section Notes 08/20/2024 Chest pain (ICD-10 - R07.9) 05/21/2025Fatigue (ICD-10 - R53.83)05/21/2025Diabetes mellitus (ICD-10 - E11.9) 06/23/2025Essential Hypertension (ICD-10 - I10)08/03/2025Over weight (ICD-10 - E66.3)08/03/2025Essential Hypertension (ICD-10 - I10)10/06/2024hest pain (ICD- 10 - R07.9)05/20/2025Status post gastric surgery (ICD-10 - Z98.890)05/21/2025 Iron deficiency anemia (ICD-10 - D50.9)05/20/2025Wellness examination (ICD-10 - Z01.89)10/06/2024Diabetes mellitus (ICD-10 - E11.9)05/20/2025Screening for colon cancer (ICD-10 - Z12.11) Plan Of Treatment Pending Test Test Name Order Date US Lower Extremity RT 08/09/2023 EKG w Interp & Report - performed 2024 CARDIO Stress Test - Cardiolite 08/20/19 25 FOLATE 05/20/2025 CBC 05/20/2025 FECAL OCCULT BLOOD 05/20/2025 CMP - Comprehensive Metabolic Panel 04/2025 CBC AUTO DIFF 08/03/2025 FERRITIN 08/03/2025 IRON 08/03/2025 VITAMIN B12 05/20/2025 US KIDNEYS BLADDER 06/11/2023 THYROID PANEL (T4/TSH/FREE T3) Vitamin D 05/20/2025 Insurance Providers Payer Name Payer Address Payer Phone Subscriber Number Group Number Insured Name Patient Relationship to Insured Coverage Start Date Coverage End Date [employer] PPO PLUS LOCAL PLAN [address] [place] [address] [id number] Adwoa Castro Self - patient is the insured 5 [employer]M ACCESS PPO PLUS LOCAL PLAN[address] [place] [address] [id number], JeanStevieouse - patient is the spouse of the [id number] 2024 Medications Administered Medication Instructions Date of [...] and nail B37.2 Surgical History Surgery Date(Month/Year) Tubal HysterectomyGall Bladder RemovalEGDLeft Breast BiopsyGastric Bypass Surgery Cardiac CathColonoscopy/ EGD109/2024ladder suspension with sling
--- OUTSIDE RECORDS SUMMARY | 2025-08-03 09:46 | XMS_ITS | Clinical Summary ---
Author Organization [employer] [facility] tem Address [id number] [address] [place] [address] Care Team Providers Care Looping Inspector Name Role Phone Shane Alvarado MD Primary Care Provider [phone] Allergies No known active allergies Medications No known medications Social History Tobacco UseTypesPacks/DayYears UsedDateSmoking Tobacco: NeverSmokeless Tobacco: NeverAlcohol UseStandard Drinks/WeekCommentsNot Currently0 (1 standard drink = 0.6 oz pure alcohol)ChildcareAnswerDate PgtvytfmNewidtegnZtbtujo93/12/2019 EmploymentAnswerDate QaurlmxyWlruwzicfoFjmcwiv40/12/2019Purpose - LifeAnswerDate RecordedPurpose and direction in lnunKkzcjna15/11/2021CommentsNoSex and Gender InformationValueDate RecordedSex Assigned at BirthNot on fileLegal Sex Tylvjt0603/17/2015 11:54 AM EDTGender IdentityNot on fileSexual OrientationNot on file Last Filed Vital Signs Vital SignReadingTime TakenCommentsBlood Psqmqptf910/8808 8:31 PM EDT Kncej3653 8:31 PM SDPKralukjabii64.1 ??C (98.7 ??F)03/21/2022 5:09 PM EDTRespiratory Ixmu478303/21/2022 8:31 PM EDTOxygen Kdrczulruj83%03/21/2022 8:31 PM EDTInhaled Oxygen Concentration--Rqassn39.5 kg (215 lb)03/21/2022 5:09 PM EDT Mbvswp788.3 cm (5' 11 )03/21/2022 5:09 PM EDTBody Mass Index29.9903/21/2022 5:09 PM EDT Plan of Treatment Health MaintenanceDue DateLast DoneCommentsDepression Mulrkymvs56/07/1985Tobacco Wtgmwnyuh13/07/1985Adult BMI Ynprsmqgy22/07/1991DTaP,Tdap and Td Vaccines (1 - Tdap)1992Pap Smear1994Zoster (Shingles) Vaccine (1 of 2)2023 COVID-19 Vaccine (3 - 2024- season)503/, 10/05/2020Influenza Tzbslov8404/12/2025 Medical Devices Not on file Insurance Care Teams Team MemberRelationshipSpecialtyStart DateEnd Shane Alvarado MD [facility]05/15/17
[2025-08-03 10:26] LABS: Hematocrit 34.6 % (36.0-48.0); Hemoglobin 10.4 g/dL (12.0-16.0); Immature Granulocytes Abs Auto 0.01 10^3/uL (0.00-0.03); Immature Granulocytes Pct Auto 0.1 % (0.0-0.5); Lymphocytes Absolute Auto 2.4 10^3/uL (1.2-3.8); Mean Corpuscular HGB Conc 30.1 g/dL (29.9-35.2); Mean Corpuscular Hemoglobin 23.4 pg (26.7-34.0); Mean Corpuscular Volume 77.8 fL (81.0-99.0); Platelet Count 407 10^3/uL (150-450); Red Blood Count 4.45 10^6/uL (4.20-5.40); White Blood Count 7.0 10^3/uL (4.0-11.0)
[2025-08-03 13:18] LABS: Ferritin 5.0 ng/mL (8.0-252.0)
[2025-08-03 14:26] LABS: Iron 32.0 ug/dL (50.0-170.0)
== END 2025-08-03 09:42 | disposition home or self-care (01) ==
PROVIDERS: PCP Family Medicine; Visit Provider Family Medicine
DX: E66.3 Overweight (principal); D64.9 Anemia, unspecified
CPT/HCPCS: 36415; 82728; 83540; 85025